=== PATIENT | male | born 1950 | race Caucasian/White ===

== ENCOUNTER 2018-09-27 17:05 | Observation (INO) | payer MEDICARE, SELFPAY ==
[2018-09-27] VITALS (7 sets, daily range): BP systolic 116–133; BP diastolic 43–88; PULSE 56–64; RESP 18–28; TEMP 36.1–36.7; O2SAT 95–97; BMI 49.4; BMI 48.6; BMI 48.7
--- NOTE | 2018-09-27 17:34 | EKG12_ITS ---
Test Reason : SOB Blood Pressure : / mmHG Vent. Rate : 061 BPM Atrial Rate : 061 BPM P-R Int : 138 ms QRS Dur : 086 ms QT Int : 416 ms P-R-T Axes : 043 027 028 degrees QTc Int : 418 ms Normal sinus rhythm Normal ECG Confirmed by DG LEWIS, SHERIF ([id number]), fan mail editor JOSE HURST ([id number]) on 09/30/2018 2:21:17 PM Referred By: GEORGETTE Confirmed By:SHERIF CONTE MD
--- NOTE | 2018-09-27 17:40 | RAD_ITS ---
STUDY: X-RAY CHEST REASON FOR EXAM: Male, 68 years old. Shortness of breath, chest pain. TECHNIQUE: Single AP portable upright view of the chest. COMPARISON: None. FINDINGS: The lungs are clear and expanded. There is no demonstrated pleural abnormality. Normal size heart. Normal mediastinum and yadira. Normal visualized pulmonary arteries. There is mild atherosclerotic calcification of the aortic arch. There are multilevel degenerative changes of the visualized thoracic spine. Normal visualized ribs, clavicles, and shoulders. There is no demonstrated abnormality of the visualized soft tissue structures of the upper abdomen. RAD/Chest 1 View (Portable) IMPRESSION: No acute cardiopulmonary disease. Electronically Signed: J Luis Bonilla MD at 18:05 EST , Service support ,
--- NOTE | 2018-09-27 17:46 | ED.DCSUM_ITS ---
- ER Visit Summary Date of Service: 09/27/18 Chief Complaint: Chest pain History of Present Illness: The patient is a 68 M no prior cardiac history. History of hypercoagulable state on anticoagulation. He has had prior DVT and prior PE. Also prior history of A. fib. Patient states the last 2 weeks he has had chest pain has been there more often than not. And associated exertional shortness of breath. He states he had a negative stress test about 4 years ago at the [facility]. He states exertion does not change his chest pain. He denies any hemoptysis. States he has chronic leg edema that is not changed. He denies any recent travel, surgery or immobilization. No recent hospitalization. He is currently having chest pain. Physical Examination: Older male no acute distress. Vital signs are stable. He is afebrile. His pulse ox is 95% on room air no hypoxia. HEENT exam un remarkable. Neck nontender. Lungs clear to auscultation bilaterally. Heart regular rhythm rate about 60 no murmur. Chest wall nontender. Abdomen obese but soft. Nontender normal bowel sounds no peritoneal signs. Patient is moving all 4 extremities. He has equal symmetrical pediatric cardiologist strength. Dorsi plantar flexion intact. He has chronic lower extremity edema bilaterally. Neurologically is awake and alert with no focal motor deficits. Test Results: EKG shows sinus rhythm rate of 61 with no acute abnormality. No ischemia. Chest x-ray shows normal cardiac silhouette mediastinum read both by myself and the radiologist. CBC shows a white count of 9. Hemoglobin of 14 is unremarkable. Chemistries are unremarkable with a normal gap. Troponin and d- dimer are both normal. Emergency Department Course and Treatment: She will undergo a cardiac workup. Repeat exam at 2100 patient is doing well. He is comfortable being admitted for further evaluation of his chest pain of uncertain etiology. Treatment Plan: I have spoken to the overnight hospitalist who will evaluate the patient for admission. Disposition: Admission Impression: Acute chest pain of uncertain etiology with exertional dyspnea History of hypercoagulable state on anticoagulation. History of oxw-gwatfdk-ujforjcge diabetes, prior PE and DVT This note was generated with [employer] dictation software. It may contain incorrect words, spelling, and punctuation that were not noted in review of the chart prior to signing ED Disposition - Plan for ED Patient: Chief Complaint: Shortness of Breath Referrals: Dereck Willsi MD [Primary Care Provider] -
[2018-09-27 18:01] LABS: Absolute Lymphocyte Count 2.99 X10^3/ul (0.83-4.51); Absolute Neutrophil Count 5.3 X10^3/uL (2.0-7.7); Basophil# 0.03 X10^3/uL; Basophil% 0.3 % (0-1); Eosinophil# 0.24 X10^3/uL; Eosinophils% 2.5 % (0-5); Hematocrit 44.2 % (40-54); Hemoglobin 14.7 g/dl (13.0-16.5); Lymphocyte # 2.99 X10^3/ul (4.0); Lymphocyte % 31.5 % (19-41); Mean Corp Hgb Conc 33.3 g/gl (32-36); Mean Corpuscular Volume 90.2 fL (80-94); Mean Platelet Vol. 8.7 fl (6.2-12.0); Monocyte# 0.98 X10^3/uL; Monocyte% 10.3 % (0-10); Neutrophil # 5.25 X10^3/uL (2.7-7.7); Neutrophil % 55.3 % (47-70); Platelet Count 210 K/mm3 (150-450); RBC Distribution Width CV 14.5 % (11.6-14.6); RBC Distribution Width SD 47.3 fl (35.1-43.9); White Blood Count 9.5 K/mm3 (4.4-11.0)
[2018-09-27 18:04] LABS: POSITIVE COUNT NO; POSITIVE DIFFERENTIAL NO; POSITIVE MORPHOLOGY NO
[2018-09-27 18:15] LABS: D-Dimer Quantitative (DVT/PE) 0.27 FEU/ug/m (0.27-0.49)
[2018-09-27 18:16] LABS: Anion Gap 6 (5-15); BUN 26 mg/dL (7-18); BUN/Creat Ratio 21.5 RATIO (10-20); Calcium,Total 8.1 mg/dL (8.5-10.1); Chloride 107 mmol/L (98-107); Creatinine, Serum 1.21 mg/dL (0.70-1.30); EST Glomerular Filtration Rate 63 mL/min (>60); Est Glom Filt Rate - Afr Amer 76 mL/min (>60); Estimated Creatinine Clearance 57.62 ml/min; Glucose 120 mg/dL (74-106); Potassium 4.1 mmol/L (3.5-5.1); Sodium Level 141 mmol/L (136-145)
--- NOTE | 2018-09-27 21:16 | ED.RN ---
THIS RN CALLED TO PT'S ROOM, FAMILY CONCERNED HE IS HAVING ANOTHER SEIZURE. PT OBSERVED WITH TWITCHING MOVEMENTS, IMMEDIATELY MAKES EYE CONTACT WITH RN, ANSWERS QUESTIONS APPROPRIATELY, MOVEMENT CEASES ALMOST IMMEDIATELY. VITAL SIGNS STABLE. MD AWARE.
--- NOTE | 2018-09-27 21:32 | HP.PCM_ITS ---
Problem List (1) Chest pain Status: Acute History of Present Illness Date of Admission: 09/27/18 Chief Complaint: chest pain The patient is a 68 year old M with a significant history of 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 fib; lower extremity lymphedema; type 2 diabetes mellitus; LEDA who presents with a two-week history of episodic nonradiating chest pain. His chest pain is located below her bilateral breast and at the sites of his bilateral breast. He describes chest pain as pressurized and burning. Two days he went to an Urgent Care at [facility] where he was found to be hypoxic and was instructed to come to the ED for further evaluation. Because of progressively worsening chest pain he presented to the emergency department for further evaluation. He denied any associated diaphoresis, nausea or vomiting. He had a negative chemical stress test about 4-5 years ago. Past Medical History Past Medical History (Chronic Problems): Chronic Problems Hyperthyroidism (Chronic) recently diagnosed Obesity (BMI 30-39.9) (Chronic) GERD (gastroesophageal reflux disease) (Chronic) History of Dotson's esophagus (Chronic) Atrial fibrillation (Chronic) Clotting disorder (Chronic) on Arixstra....had DVT while on Coumadin CRF (chronic renal failure) (Chronic) Venous hypertension of both lower extremities (Chronic) LEDA (obstructive sleep apnea) (Chronic) non-compliant with CPAP Allergies No Known Allergies Allergy (Verified 09/27/18 17:09) Home Medications: Ambulatory Orders Medication Instructions Recorded Fondaparinux Sodium [Arixtra] 10 mg SQ DAILY 12/21/14 Furosemide [Lasix] 40 mg PO DAILY 12/21/14 HydrOXYzine [Atarax] 50 mg PO QHS 12/21/14 Metoprolol Tartrate [Lopressor 50 mg PO BID 12/21/14 (beta enmanuel)] Pantoprazole Sodium [Protonix] 40 mg PO BID 12/21/14 Metformin HCl 500 mg PO DAILY 09/27/18 Nystatin 1 applic TP DAILY 09/27/18 Nystatin [Nystop] 1 applic TP DAILY 09/27/18 Ropinirole HCl [Requip] 9 mg PO DAILY 09/27/18 Surgical History: - - foot surgery, uvulectomy? for sleep apnea. Bilateral knee replacement. Psychiatric History: No pertinent psych hx Lives: Spouse/ Significant Other Smoking Status: Never smoker Alcohol: None - *Family History Maternal History Items: Diabetes, Heart Disease, - - mother at 69 with CHF and she had DM Paternal History Items: Heart Disease - dad at 81 with CHF, - Review of Systems Constitutional: Denies: Chills, Fever, Weight Change HEENT: Denies: Head Aches, Sinus Congestion, Sinus Drainage Cardiovascular: Reports: Chest Pain. Denies: Palpitations Respiratory: Reports: Shortness of Breath. Denies: Cough, Sputum production Gastrointestinal: Denies: Abdominal Pain, Nausea, Vomiting Genitourinary: Denies: Dysuria Musculoskeletal: Denies: Joint Pain, Joint Tenderness Skin: Denies: Rash, Wounds Neurological: Denies: Numbness, Tingling, Focal weakness Psychiatric: Denies: Anxiety, Depression, Homicidal Ideations, Suicidal Ideations Hematologic/ Lymphatic: Denies: Easy Bruising, Easy Bleeding VTE Information - Inpt Only VTE Present on Admission: No VTE Mechan Device Prophylaxis: None VTE Pharm Prophylaxis ordered?: No Reason prophylaxis not ordered:: Treatment Not Indicated - On fondaparinux for hypercoagulable disorder Patient Problems: Active and Suspected Problems Chest pain (Acute) - Physical Exam General: Alert, Oriented x3, Cooperative HEENT: Atraumatic, PERRLA, EOMI, Normocephalic Neck: Supple, No JVD, Negative Carotid Bruits Lungs: Clear to auscultation, Normal air movement Cardiovascular: Regular rate, No murmurs Abdomen: Bowel Sounds Present, Soft, Non Tender Extremities: Capillary Refill Less than 3 Seconds, Edema - Bilateral leg nonpitting edema Skin: No rashes, No breakdown Musculoskeletal: No Tenderness to Palpation of Joints or Extremities Neurological: Neuro grossly intact Psych/Mental Status: Normal Affect, Appropriate Vital Signs Temp Pulse Resp BP Pulse Ox 97.0 F L 57 L 24 H 133/88 H 95 09/27/18 17:06 09/27/18 20:54 09/27/18 20:54 09/27/18 20:54 09/27/18 20:54 Oxygen Flow Rate (L/min) 2 Oxygen Delivery Method Nasal Cannula Weight: 151.8 kg Body Mass Index (BMI) 49.4 Laboratory Tests Past 24 Hrs 09/27/18 09/27/18 09/27/18 17:44 17:44 17:44 WBC 9.5 RBC 4.90 Hgb 14.7 Hct 44.2 MCV 90.2 MCH 30.0 MCHC 33.3 RDW 14.5 RDW Differential 47.3 H Plt Count 210 MPV 8.7 Immature Gran % (Auto) 0.100 Neut % (Auto) 55.3 Lymph % (Auto) 31.5 [place] % (Auto) 10.3 H Eos % (Auto) 2.5 Baso % (Auto) 0.3 Absolute Neuts (auto) 5.3 Absolute Lymphs (auto) 2.99 Total Counted Not Reportable D-Dimer Quant (PE/DVT) 0.27 Sodium 141 Potassium 4.1 Chloride 107 Carbon Dioxide 28.0 Anion Gap 6 BUN 26 H Creatinine 1.21 Estim Creat Clear Calc 57.62 Est GFR (MDRD) Af Amer 76 Est GFR (MDRD) Non-Af 63 BUN/Creatinine Ratio 21.5 H Glucose 120 H Calcium 8.1 L Troponin I < 0.015 Assessment/Plan All Active Problems Chest pain (Acute) Contusion (Acute) Left leg swelling (Acute) Cellulitis (Acute) History of DVT (deep vein thrombosis) (Resolved) The patient is a 68 year old M with a significant history of hypercoagulable d isorder (low fibrinogen) with subsequent DVT and PE; paroxysmal A. fib; lower extremity lymphedema; type 2 diabetes mellitus who presents with a two-week history of episodic nonradiating chest pain. Chest pain CARMELA score is 0-1 Admit to a monitored bed on PCU EKG independently reviewed confirms sinus rhythm Aspirin 325 mg x1. ASA 81 mg p.o. daily. Starting on high intensity statin. SL NTG 0.4 mg prn as needed for chest pain Home metoprolol continued. Serial cardiac enzymes Lipid panel ordered. Stat EKG as needed for chest pain Chemical Stress test in the AM if the cardiac enzymes are negative. Unable to do treadmill stress test because of history of bilateral knee replacement. Hypercoagulable disorder with DVT and PE Patient reported that he treatment clot was on Coumadin. Home fondaparinux continued Type 2 diabetes On admission blood glucose was within goal. We will hold metformin for now Correction scale insulin ordered. Paroxysmal A. fib Patient in normal sinus rhythm at admission. Metoprolol continued Fondaparinux continued. Obstructive sleep apnea Patient describes uvuloplasty in the past and on CPAP at home. CPAP continued. DVT prophylaxis Not indicated in the setting of home fondaparinux that has been continued. Code Visit OBSV E&M: 62423 Initial observation care L3
--- NOTE | 2018-09-27 22:32 | EKG12_ITS ---
Test Reason : CP ADMIT Blood Pressure : / mmHG Vent. Rate : 058 BPM Atrial Rate : 058 BPM P-R Int : 144 ms QRS Dur : 092 ms QT Int : 430 ms P-R-T Axes : 046 022 024 degrees QTc Int : 422 ms Sinus bradycardia Otherwise normal ECG When compared with ECG of 27-SEP-2018 17:22, MANUAL COMPARISON REQUIRED, DATA IS UNCONFIRMED Confirmed by DG LEWIS, SHERIF ([id number]), senior technical editor JOSE HURST ([id number]) on 09/30/2018 2:04:31 PM Referred By: DR JEFFERS Confirmed By:SHERIF CONTE MD
[2018-09-27] MEDS: Atorvastatin Calcium 80 MG Tablet PO (23:35)
[2018-09-27] MEDS: Pramipexole Di-HCl 1 MG Tablet 4.5 MG PO (23:36)
[2018-09-27] MEDS: hydrOXYzine PAM 25 MG Capsule 50 MG PO (23:36)
[2018-09-27] MEDS: Insulin Lispro 100 UNIT/ML INSULN.PEN SQ (23:40)
[2018-09-27] MEDS: Aspirin 325 MG Tablet PO (23:45)
[2018-09-27 23:56] LABS: Bedside Glucose 158 mg/dL (70-110)
[2018-09-28] VITALS (8 sets, daily range): BP systolic 105–134; BP diastolic 57–77; PULSE 55–69; RESP 18; TEMP 36.4–36.6; O2SAT 92–947
[2018-09-28] MEDS: Aspirin E.C. 81 MG Tablet PO (05:26)
--- NOTE | 2018-09-28 05:55 | EKG12_ITS ---
Test Reason : AM EKG Blood Pressure : / mmHG Vent. Rate : 059 BPM Atrial Rate : 059 BPM P-R Int : 130 ms QRS Dur : 098 ms QT Int : 432 ms P-R-T Axes : 007 028 027 degrees QTc Int : 427 ms Sinus bradycardia Otherwise normal ECG Confirmed by DG LEWIS, SHERIF ([id number]), script editor JOSE HURST ([id number]) on 09/30/2018 2:00:52 PM Referred By: DR JEFFERS Confirmed By:SHERIF CONTE MD
[2018-09-28 06:08] LABS: International Normalized Ratio 1.4; Prothrombin Time (Protime)PT. 17.2 SECONDS (11.7-14.9)
[2018-09-28 06:09] LABS: Partial Thromboplast Time 37.1 Seconds (24.1-36.2)
[2018-09-28 06:11] LABS: Absolute Lymphocyte Count 3.13 X10^3/ul (0.83-4.51); Absolute Neutrophil Count 4.7 X10^3/uL (2.0-7.7); Basophil# 0.03 X10^3/uL; Basophil% 0.3 % (0-1); Eosinophil# 0.32 X10^3/uL; Eosinophils% 3.5 % (0-5); Hematocrit 43.7 % (40-54); Hemoglobin 14.2 g/dl (13.0-16.5); Lymphocyte # 3.13 X10^3/ul (4.0); Lymphocyte % 34.3 % (19-41); Mean Corp Hgb Conc 32.5 g/gl (32-36); Mean Corpuscular Hgb 29.6 pg (27.0-32.0); Mean Corpuscular Volume 91.2 fL (80-94); Monocyte# 0.96 X10^3/uL; Monocyte% 10.5 % (0-10); Neutrophil # 4.68 X10^3/uL (2.7-7.7); Neutrophil % 51.3 % (47-70); Platelet Count 205 K/mm3 (150-450); RBC Distribution Width CV 14.6 % (11.6-14.6); RBC Distribution Width SD 49.2 fl (35.1-43.9); Red Blood Count 4.79 M/mm3 (4.6-6.2); White Blood Count 9.1 K/mm3 (4.4-11.0)
[2018-09-28 06:24] LABS: POSITIVE COUNT NO; POSITIVE DIFFERENTIAL NO; POSITIVE MORPHOLOGY NO
[2018-09-28 06:31] LABS: BUN 24 mg/dL (7-18); Creatinine, Serum 1.14 mg/dL (0.70-1.30); Estimated Creatinine Clearance 61.16 ml/min; Glucose 134 mg/dL (74-106)
[2018-09-28 06:32] LABS: Anion Gap 4 (5-15); BUN/Creat Ratio 21.1 RATIO (10-20); Calcium,Total 8.2 mg/dL (8.5-10.1); Chloride 108 mmol/L (98-107); Cholesterol 113 mg/dL (200); EST Glomerular Filtration Rate 68 mL/min (>60); Est Glom Filt Rate - Afr Amer 82 mL/min (>60); High Density Lipoprotein 38 mg/dL; Potassium 4.1 mmol/L (3.5-5.1); Sodium Level 142 mmol/L (136-145); Triglycerides 155 mg/dL; Very Low Density Lipoprotein 31 mg/dL (5-40)
[2018-09-28 06:51] LABS: Bedside Glucose 163 mg/dL (70-110)
[2018-09-28] MEDS: Ondansetron 4 MG/2 ML Vial IV (09:14)
[2018-09-28 11:40] LABS: Bedside Glucose 138 mg/dL (70-110)
--- NOTE | 2018-09-28 12:47 | STRESSREP ---
Stress Test Report Pharmacologic myocardial perfusion stress test. Next 68-year-old man with a history of diabetes mellitus paroxysmal atrial fibrillation. Stress protocol: Resting EKG demonstrates normal sinus rhythm with a rate of 64 bpm normal intervals are noted resting blood pressure is 122/84 mmHg. 0.4 mg of regadenoson was infused per usual protocol followed by rapid intravenous saline flush injection continuous EKG monitoring was performed. The maximum heart rate attained was 78 bpm and sinus rhythm which was 51% of maximum predicted heart rate the maximum workload was 1 metabolic equivalent. At rest there were no ST or T wave changes noted suggest abnormal flow reserve at peak infusion no ST or T wave changes were noted suggest abnormal flow reserve. The resting blood pressure 122/84. Myocardial perfusion protocol. 15.0 mCi of technetium 99m sestamibi was injected at rest. 0.4 mg of regadenoson was infused per usual protocol peak infusion 44.7 mCi of technetium 99m sestamibi was injected stress images were obtained stress and rest images were reconstructed and compared in the short axis vertical and horizontal long axis. Gated images were also obtained proximal Perfusion SPECT analysis: Review of the stress images demonstrate normal uptake of tracer noted in all his myocardium except for small area of the apex with mild perfusion defect. This is present on the stress and rest images to a similar extent. No obvious reversibility is noted suggest ischemia. Gated SPECT analysis: The gated ejection fraction is 54% with no obvious wall motion abnormalities present. Conclusion: Normal pharmacologic myocardial perfusion stress test. Preserved ejection fraction.
--- NOTE | 2018-09-28 13:11 | DCINST_ITS ---
- Discharge Diagnoses Current Active Problems: Current Active and Chronic Problems Chest pain (Acute) You will use the following diet at home:: Calorie/Carbohydrate Controlled (specify 1200, 1400, etc) - 1800 yadira., Cardiac Your food should be the consistency of: Regular Discharge Activity: Return to Normal Activity Weight Bearing Status: Weight bearing as tolerated Call your doctor if you observe: Fever of 101 or Higher, Shortness of breath, Dizziness, Fainting spells, Chest pain, Increased palpitations (irregular heartbeat), Uncontrolled pain Allergies/Adverse Reactions: Allergies No Known Allergies Allergy (Verified 09/27/18 17:09) Medications to take at Discharge Fondaparinux Sodium [Arixtra] 10 mg SQ DAILY 12/21/14 Furosemide [Lasix] 40 mg PO DAILY 12/21/14 HydrOXYzine [Atarax] 50 mg PO QHS 12/21/14 Metoprolol Tartrate [Lopressor (beta enmanuel)] 50 mg PO BID 12/21/14 Pantoprazole Sodium [Protonix] 40 mg PO BID 12/21/14 Metformin HCl 500 mg PO DAILY 09/27/18 Nystatin 1 applic TP DAILY 09/27/18 Nystatin [Nystop] 1 applic TP DAILY 09/27/18 Ropinirole HCl [Requip] 9 mg PO DAILY 09/27/18 Primary Care Physician: Dereck Willis MD [Primary Care Provider] - Please follow up with your Primary Care Physician in: 1 week. Test Results: Test results from this visit will be discussed in further detail at your follow- up appointment, if applicable.
[2018-09-28] MEDS: Metoprolol Tartrate 50 MG Tablet PO (13:36)
[2018-09-28] MEDS: Pantoprazole Sodium 40 MG Tablet PO (13:36)
--- NOTE | 2018-09-28 15:01 | DS.PCM_ITS ---
Discharge Date and Diagnosis - Problem List Patient Problems: Active and Suspected Problems Chest pain (Acute) Date of Admission: 09/27/18 Date of Discharge: 09/28/18 - Primary Discharge Diagnosis Active and Suspected Problems Chest pain, ACS ruled out (Acute) - Secondary Discharge Diagnosis Chronic Problems Hyperthyroidism (Chronic) recently diagnosed Obesity (BMI 30-39.9) (Chronic) GERD (gastroesophageal reflux disease) (Chronic) History of Dotson's esophagus (Chronic) Atrial fibrillation (Chronic) Clotting disorder (Chronic) on Arixstra....had DVT while on Coumadin CRF (chronic renal failure) (Chronic) Venous hypertension of both lower extremities (Chronic) LEDA (obstructive sleep apnea) (Chronic) non-compliant with CPAP Hospital Course and Treatment Imaging Results: Clinical Impression(s) from Imaging Studies Chest X-Ray 09/27/18 17:40 IMPRESSION: No acute cardiopulmonary disease. Electronically Signed: J Luis Bonilla MD at 18:05 EST , Service support , Operations: None Procedures: EKG, Stress test Summary of Care Provided: Patient seen and examined on the day of discharge and appeared to be stable to be discharged home. He complains of chest pressure both improved. He denied associated symptoms such as shortness of breath, palpitation, dizziness, lightheadedness, nausea, vomiting, syncope or presyncope. He did have a history of GERD and he has been on Protonix. The patient is a 68 year old M admitted because of chest pain for evaluation. His risk factors including age, type 2 diabetes mellitus and hypertension as well as history of hypercoagulable state has been on Lovenox for life. His EKG revealed no acute ischemic changes. His troponin was negative x3. His chest x- ray showed no acute findings. He underwent nuclear stress test that reported as negative without evidence of stress-induced myocardial ischemia and with preserved ejection fraction. Acute coronary syndrome without. His vital signs were stable. His symptoms probably due to GERD. Patient discharged home in a stable medical condition, discharged on his same home medications without any changes in breathing Protonix, recommended follow-up with PCP in 1 week. Patient Problems: Active and Suspected Problems Chest pain (Acute) - Physical Exam General: Alert, Oriented x3, Cooperative, No apparent distress HEENT: Atraumatic, PERRLA, EOMI, Normocephalic Oral: Moist Mucosa, No Gingival or Mucosal Lesions/ Ulcerations Neck: Supple, No JVD, Negative Carotid Bruits, Trachea Midline, Thyroid Normal Size and Texture Lungs: Clear to auscultation, No rhonchi, No wheeze, No rales, Diminished Cardiovascular: Regular rate, Regular Rhythm, Normal S1, Normal S2, PMI Normal Abdomen: Bowel Sounds Present, Soft, Non Tender, Non-Distended, No Hepato- splenomegaly, Obese Extremities: No clubbing, No cyanosis, No edema Skin: No rashes, No breakdown Lymphatic: No Cervical, Supraclavicular, or Inguinal Adenopathy Neurological: Cranial nerves II-XII grossly intact, Neuro grossly intact Psych/Mental Status: Normal Affect, Appropriate Vital Signs Temp Pulse Resp BP Pulse Ox 97.7 F L 69 18 106/57 L 94 09/28/18 08:58 09/28/18 13:36 09/28/18 08:58 09/28/18 13:36 09/28/18 08:58 Oxygen Flow Rate (L/min) 2 Oxygen Delivery Method Room Air Weight: 329 lb 12.984 oz Body Mass Index (BMI) 48.6 Intake and Output for Last 24 Hours 09/26/18 09/27/18 09/28/18 23:59 23:59 23:59 Output Total 125 / 125 Balance -125 / -125 Laboratory Tests Past 24 Hrs 09/27/18 09/27/18 09/27/18 17:44 17:44 17:44 WBC 9.5 RBC 4.90 Hgb 14.7 Hct 44.2 MCV 90.2 MCH 30.0 MCHC 33.3 RDW 14.5 RDW Differential 47.3 H Plt Count 210 MPV 8.7 Immature Gran % (Auto) 0.100 Neut % (Auto) 55.3 Lymph % (Auto) 31.5 Sunflower % (Auto) 10.3 H Eos % (Auto) 2.5 Baso % (Auto) 0.3 Absolute Neuts (auto) 5.3 Absolute Lymphs (auto) 2.99 Total Counted Not Reportable PT INR APTT D-Dimer Quant (PE/DVT) 0.27 Sodium 141 Potassium 4.1 Chloride 107 Carbon Dioxide 28.0 Anion Gap 6 BUN 26 H Creatinine 1.21 Estim Creat Clear Calc 57.62 Est GFR (MDRD) Af Amer 76 Est GFR (MDRD) Non-Af 63 BUN/Creatinine Ratio 21.5 H Glucose 120 H Calcium 8.1 L Troponin I < 0.015 Triglycerides Cholesterol LDL Cholesterol VLDL Cholesterol HDL Cholesterol 09/27/18 09/28/18 09/28/18 23:06 02:52 05:00 WBC RBC Hgb Hct MCV MCH MCHC RDW RDW Differential Plt Count MPV Immature Gran % (Auto) Neut % (Auto) Lymph % (Auto) Sunflower % (Auto) Eos % (Auto) Baso % (Auto) Absolute Neuts (auto) Absolute Lymphs (auto) Total Counted PT INR APTT D-Dimer Quant (PE/DVT) Sodium 142 Potassium 4.1 Chloride 108 H Carbon Dioxide 30.0 Anion Gap 4 L BUN 24 H Creatinine 1.14 Estim Creat Clear Calc 61.16 Est GFR (MDRD) Af Amer 82 Est GFR (MDRD) Non-Af 68 BUN/Creatinine Ratio 21.1 H Glucose 134 H Calcium 8.2 L Troponin I < 0.015 < 0.015 < 0.015 Triglycerides 155 Cholesterol 113 LDL Cholesterol 44 VLDL Cholesterol 31 HDL Cholesterol 38 L 09/28/18 09/28/18 05:00 05:00 WBC 9.1 RBC 4.79 Hgb 14.2 Hct 43.7 MCV 91.2 MCH 29.6 MCHC 32.5 RDW 14.6 RDW Differential 49.2 H Plt Count 205 MPV 9.0 Immature Gran % (Auto) 0.100 Neut % (Auto) 51.3 Lymph % (Auto) 34.3 Sunflower % (Auto) 10.5 H Eos % (Auto) 3.5 Baso % (Auto) 0.3 Absolute Neuts (auto) 4.7 Absolute Lymphs (auto) 3.13 Total Counted Not Reportable PT 17.2 H INR 1.4 APTT 37.1 H D-Dimer Quant (PE/DVT) Sodium Potassium Chloride Carbon Dioxide Anion Gap BUN Creatinine Estim Creat Clear Calc Est GFR (MDRD) Af Amer Est GFR (MDRD) Non-Af BUN/Creatinine Ratio Glucose Calcium Troponin I Triglycerides Cholesterol LDL Cholesterol VLDL Cholesterol HDL Cholesterol POC Glucose 09/28/18 09/28/18 09/27/18 11:34 06:47 23:34 POC Glucose 138 H 163 H 158 H Discharge Activity: Return to Normal Activity Weight Bearing Status: Weight bearing as tolerated Call your doctor if you observe: Fever of 101 or Higher, Shortness of breath, Dizziness, Fainting spells, Chest pain, Increased palpitations (irregular heartbeat), Uncontrolled pain Home Medications: Medications to take at Discharge Fondaparinux Sodium [Arixtra] 10 mg SQ DAILY 12/21/14 Furosemide [Lasix] 40 mg PO DAILY 12/21/14 HydrOXYzine [Atarax] 50 mg PO QHS 12/21/14 Metoprolol Tartrate [Lopressor (beta enmanuel)] 50 mg PO BID 12/21/14 Pantoprazole Sodium [Protonix] 40 mg PO BID 12/21/14 Metformin HCl 500 mg PO DAILY 09/27/18 Nystatin 1 applic TP DAILY 09/27/18 Nystatin [Nystop] 1 applic TP DAILY 09/27/18 Ropinirole HCl [Requip] 9 mg PO DAILY 09/27/18 Primary Care Physician: Dereck Willis MD [Primary Care Provider] - Please follow up with your Primary Care Physician in: 1 week. Disposition: Home Minutes spent on discharge:: 24 Patient Condition:: Stable Medical Necessity - Tobacco Use Smoking Status: Never smoker Meaningful Use Info Meaningful Use Diagnoses (Choose all that apply): None applicable Code Visit OBSV E&M: 39303 Observation care discharge
--- OUTSIDE RECORDS SUMMARY | 2018-11-23 09:44 | XMS RPT_ITS ---
:1950 Author Organization OHIP Care Team Providers Name Role Phone AVINASH WILLIS Attending Unavailable Nishi BRICE (PA-C) Attending Unavailable KHADRA MUNIZ (WELDER OXYHYDROGEN) Referring Unavailable Corona Sloan Attending Unavailable Jacob Quan Referring Unavailable Corona Sloan Attending Unavailable Jacob Murillo Referring Unavailable Avinash Willis Primary Care Unavailable Jacob Murillo Admitting Unavailable Casper Dick Attending Unavailable Jacob Murillo Admitting Unavailable Jacob Murillo Attending Unavailable Avinash Willis Primary Care Unavailable Jacob Murillo Consulting Unavailable Jacob Murillo Admitting Unavailable Casper Dick Attending Unavailable Avinash Willis Primary Care Unavailable Casper Dick Consulting Unavailable PROBLEMS PROBLEMS DATE TYPE CONDITION / CODE ATTENDING STATUS SOURCE 10/18/2018 Unknown R07.9 - Chest pain, Corona Sloan Active [facility] unspecified / Community R07.9(ICD-10) Hospital Repository 10/17/2018 Unknown R00.1 - Nathalia, Corona Active [facility] Bradycardia, Community unspecified / Hospital R00.1(ICD-10) Repository 05/20/2017 Active Type 2 diabetes NA Active [facility] mellitus without [place] complications / Repository E11.9(ICD-10) 05/12/2018 Active Encounter for NA Active [facility] screening for [place] lipoid disorders / Repository Z13.220(ICD-10) PROCEDURES PROCEDURES No Procedure Records FoundRESULTS RESULTS 12 LEAD ELECTROCARDIOGRAM Observed: 09/30/2018 Status: F Source: [place] 2:21 PM [facility] HOSPITAL REPOSITORY [facility] Cardiovascular Services [address] [place] [address] 12 Lead EKG 09/27/18 1722 MR#: [id number] Acct: [id number] Name: IVELISSE CAPONE Rep #: [id number] : 1950 68 From: Corona Sloan MD Attending Dr: Casper Dick Status: DIS SHANTA Ordering Dr: Tdod Knowles MD Date: 09/27/18 Location: [facility] Sex: M C Admitted: 09/27/18 Test Reason : SOB Blood Pressure : / mmHG Vent. Rate : 061 BPM Atrial Rate : 061 BPM P-R Int : 138 ms QRS Dur : 086 ms QT Int : 416 ms P-R-T Axes : 043 027 028 degrees QTc Int : 418 ms Normal sinus rhythm Normal ECG Confirmed by CORONA SLOAN MD ([id number]), brands editor JOSE HURST ([id number]) on 09/30/2018 2:21:17 PM Referred By: GEORGETTE Confirmed By:CORONA SLOAN MD 09/30/18 1421 Date Corona Sloan MD CC: Casper Dick; Todd Knowles MD; Avinash Willis MD Signed 12 LEAD ELECTROCARDIOGRAM Observed: 09/30/2018 Status: F Source: [place] 2:04 PM [facility] REPOSITORY [facility] Cardiovascular Services [address] [place] [address] 12 Lead EKG 09/27/18 2332 MR#: [id number] Acct: [id number] Name: IVELISSE CAPONE Rep #: [id number] : 1950 68 From: Corona Sloan MD Attending Dr: Casper Dick Status: DIS SHANTA Ordering Dr: Jacob Murillo MD Date: 09/27/18 Location: [facility] Sex: M C Admitted: 09/27/18 Test Reason : CP ADMIT Blood Pressure : / mmHG Vent. Rate : 058 BPM Atrial Rate : 058 BPM P-R Int : 144 ms QRS Dur : 092 ms QT Int : 430 ms P-R-T Axes : 046 022 024 degrees QTc Int : 422 ms Sinus bradycardia Otherwise normal ECG When compared with ECG of 27-SEP-2018 17:22, MANUAL COMPARISON REQUIRED, DATA IS UNCONFIRMED Confirmed by NATHALIA LEWIS, CORONA ([id number]), brands editor JOSE HURST ([id number]) on 09/30/2018 2:04:31 PM Referred By: DR JAMES Confirmed By:CORONA SLOAN MD 09/30/18 1404 Date Corona Sloan MD CC: Casper Dick; Jacob Murillo MD; Avinash Willis MD Signed 12 LEAD ELECTROCARDIOGRAM Observed: 09/30/2018 Status: F Source: [place] 2:01 PM [facility] HOSPITAL REPOSITORY [facility] Cardiovascular Services [address] [place] [address] 12 Lead EKG 09/28/18 0553 MR#: [id number] Acct: [id number] Name: IVELISSE CAPONE Rep #: [id number] : 1950 68 From: Corona Sloan MD Attending Dr: Casper Dick Status: DIS SHANTA Ordering Dr: Jacob Murillo MD Date: 09/28/18 Location: [facility] Sex: M C Admitted: 09/27/18 Test Reason : AM EKG Blood Pressure : / mmHG Vent. Rate : 059 BPM Atrial Rate : 059 BPM P-R Int : 130 ms QRS Dur : 098 ms QT Int : 432 ms P-R-T Axes : 007 028 027 degrees QTc Int : 427 ms Sinus bradycardia Otherwise normal ECG Confirmed by CORONA SLOAN MD ([id number]), brands editor JOSE HURST ([id number]) on 09/30/2018 2:00:52 PM Referred By: DR JAMES Confirmed By:CORONA SLOAN MD 09/30/18 1400 Date Corona Sloan MD CC: Casper Dick; Jacob Murillo MD; Avinash Willis MD Signed DISCHARGE SUMMARY Observed: 09/28/2018 Status: F Source: [place] 3:17 PM [facility] REPOSITORY [facility] Medical Records Department [address] [place] [address] Discharge Summary 09/28/18 1501 MR#: [id number] Acct: [id number] Name: IVELISSE CAPONE Rep #: [id number] : 1950 68 From: Casper Dick MD PCP: Avinash Willis MD Status: DIS SHANTA Y Location: [place] [id number] Discharge Date and Diagnosis - Problem List Patient Problems: Active and Suspected Problems Chest pain (Acute) Date of Admission: 09/27/18 Date of Discharge: 09/28/18 - Primary Discharge Diagnosis Active and Suspected Problems Chest pain, ACS ruled out (Acute) - Secondary Discharge Diagnosis Chronic Problems Hyperthyroidism (Chronic) recently diagnosed Obesity (BMI 30-39.9) (Chronic) GERD (gastroesophageal reflux disease) (Chronic) History of Dotson's esophagus (Chronic) Atrial fibrillation (Chronic) Clotting disorder (Chronic) on Arixstra....had DVT while on Coumadin CRF (chronic renal failure) (Chronic) Venous hypertension of both lower extremities (Chronic) LEDA (obstructive sleep apnea) (Chronic) non-compliant with CPAP Hospital Course and Treatment Imaging Results: Clinical Impression(s) from Imaging Studies Chest X-Ray 09/27/18 17:40 IMPRESSION: No acute cardiopulmonary disease. Electronically Signed: J Luis Bonilla MD at 18:05 EST , Service support , Operations: None Procedures: EKG, Stress test Summary of Care Provided: Patient seen and examined on the day of discharge and appeared to be stable to be discharged home. He complains of chest pressure both improved. He denied associated symptoms such as shortness of breath, palpitation, dizziness, lightheadedness, nausea, vomiting, syncope or presyncope. He did have a history of GERD and he has been on Protonix. The patient is a 68 year old M admitted because of chest pain for evaluation. His risk factors including age, type 2 diabetes mellitus and hypertension as well as history of hypercoagulable state has been on Lovenox for life. His EKG revealed no acute ischemic changes. His troponin was negative x3. His chest x-ray showed no acute findings. He underwent nuclear stress test that reported as negative without evidence of stress-induced myocardial ischemia and with preserved ejection fraction. Acute coronary syndrome without. His vital signs were stable. His symptoms probably due to GERD. Patient discharged home in a stable medical condition, discharged on his same home medications without any changes in breathing Protonix, recommended follow-up with PCP in 1 week. Patient Problems: Active and Suspected Problems Chest pain (Acute) - Physical Exam General: Alert, Oriented x3, Cooperative, No apparent distress HEENT: Atraumatic, PERRLA, EOMI, Normocephalic Oral: Moist Mucosa, No Gingival or Mucosal Lesions/ Ulcerations Neck: Supple, No JVD, Negative Carotid Bruits, Trachea Midline, Thyroid Normal Size and Texture Lungs: Clear to auscultation, No rhonchi, No wheeze, No rales, Diminished Cardiovascular: Regular rate, Regular Rhythm, Normal S1, Normal S2, PMI Normal Abdomen: Bowel Sounds Present, Soft, Non Tender, Non-Distended, No Hepato-splenomegaly, Obese Extremities: No clubbing, No cyanosis, No edema Skin: No rashes, No breakdown Lymphatic: No Cervical, Supraclavicular, or Inguinal Adenopathy Neurological: Cranial nerves II-XII grossly intact, Neuro grossly intact Psych/Mental Status: Normal Affect, Appropriate Vital Signs Temp Pulse Resp BP Pulse Ox 97.7 F L 69 18 106/57 L 94 09/28/18 08:58 09/28/18 13:36 09/28/18 08:58 09/28/18 13:36 09/28/18 08:58 Oxygen Flow Rate (L/min) 2 Oxygen Delivery Method Room Air Weight: 329 lb 12.984 oz Body Mass Index (BMI) 48.6 Intake and Output for Last 24 Hours Output Total 125 / 125 Balance -125 / -125 Laboratory Tests Past 24 Hrs WBC 9.5 RBC 4.90 Hgb 14.7 Hct 44.2 MCV 90.2 MCH 30.0 MCHC 33.3 RDW 14.5 WBC RBC Hgb Hct WBC 9.1 POC Glucose POC Glucose 138 H 163 H 158 H Discharge Activity: Return to Normal Activity Weight Bearing Status: Weight bearing as tolerated Call your doctor if you observe: Fever of 101 or Higher, Shortness of breath, Dizziness, Fainting spells, Chest pain, Increased palpitations (irregular heartbeat), Uncontrolled pain Home Medications: Medications to take at Discharge Fondaparinux Sodium [Arixtra] 10 mg SQ DAILY 12/21/14 Furosemide [Lasix] 40 mg PO DAILY 12/21/14 HydrOXYzine [Atarax] 50 mg PO QHS 12/21/14 Metoprolol Tartrate [Lopressor (beta enmanuel)] 50 mg PO BID 12/21/14 Pantoprazole Sodium [Protonix] 40 mg PO BID 12/21/14 Metformin HCl 500 mg PO DAILY 09/27/18 Nystatin 1 applic TP DAILY 09/27/18 Nystatin [Nystop] 1 applic TP DAILY 09/27/18 Ropinirole HCl [Requip] 9 mg PO DAILY 09/27/18 Primary Care Physician: Avinash Willis MD [Primary Care Provider] - Please follow up with your Primary Care Physician in: 1 week. Disposition: Home Minutes spent on discharge:: 24 Patient Condition:: Stable Medical Necessity - Tobacco Use Smoking Status: Never smoker Meaningful Use Info Meaningful Use Diagnoses (Choose all that apply): None applicable Code Visit OBSV E AND M: 24535 Observation care discharge 09/28/18 1517 <Electronically signed by Casper Dick MD> Date Casper Dick MD Cosigner Signature (if applicable): Date CC: Casper Dick; Avinash Willis MD Signed DISCHARGE INSTRUCTION Observed: 09/28/2018 Status: F Source: [place] 1:11 PM [facility] REPOSITORY [facility] Medical Records Department [address] [place] [address] [place] [address] Instructions for Home/Discharge Instructions 09/28/18 1310 MR#: [id number] Acct: [id number] Name: IVELISSE CAPONE Davy Rep #: [id number] : 1950 68 From: Casper Dick MD PCP: Avinash Willis MD Status: ADM SHANTA - Discharge Diagnoses Current Active Problems: Current Active and Chronic Problems Chest pain (Acute) You will use the following diet at home:: Calorie/Carbohydrate Controlled (specify 1200, 1400, etc) - 1800 yadira., Cardiac Your food should be the consistency of: Regular Discharge Activity: Return to Normal Activity Weight Bearing Status: Weight bearing as tolerated Call your doctor if you observe: Fever of 101 or Higher, Shortness of breath, Dizziness, Fainting spells, Chest pain, Increased palpitations (irregular heartbeat), Uncontrolled pain Allergies/Adverse Reactions: Allergies No Known Allergies Allergy (Verified 09/27/18 17:09) Medications to take at Discharge Fondaparinux Sodium [Arixtra] 10 mg SQ DAILY 12/21/14 Furosemide [Lasix] 40 mg PO DAILY 12/21/14 HydrOXYzine [Atarax] 50 mg PO QHS 12/21/14 Metoprolol Tartrate [Lopressor (beta enmanuel)] 50 mg PO BID 12/21/14 Pantoprazole Sodium [Protonix] 40 mg PO BID 12/21/14 Metformin HCl 500 mg PO DAILY 09/27/18 Nystatin 1 applic TP DAILY 09/27/18 Nystatin [Nystop] 1 applic TP DAILY 09/27/18 Ropinirole HCl [Requip] 9 mg PO DAILY 09/27/18 Primary Care Physician: Avinash Willis MD [Primary Care Provider] - Please follow up with your Primary Care Physician in: 1 week. Test Results: Test results from this visit will be discussed in further detail at your follow-up appointment, if applicable. 09/28/18 1311 <Electronically signed by Casper Dick MD> Date Casper Dick MD CC: Avinash Willis MD STRESS REPORT Observed: 09/28/2018 Status: F Source: [place] 12:50 PM [facility] REPOSITORY [facility] Cardiovascular Services [address] [place] [address] MR#: [id number] Acct: [id number] Name: IVELISSE CAPONE Rep #: [id number] : 1950 68 From: Corona Sloan MD Primary Care: Avinash Willis MD Status: ADM SHANTA Ordering Dr: Conor Mckenzie Stress Test Report Pharmacologic myocardial perfusion stress test. Next 68-year-old man with a history of diabetes mellitus paroxysmal atrial fibrillation. Stress protocol: Resting EKG demonstrates normal sinus rhythm with a rate of 64 bpm normal intervals are noted resting blood pressure is 122/84 mmHg. 0.4 mg of regadenoson was infused per usual protocol followed by rapid intravenous saline flush injection continuous EKG monitoring was performed. The maximum heart rate attained was 78 bpm and sinus rhythm which was 51% of maximum predicted heart rate the maximum workload was 1 metabolic equivalent. At rest there were no ST or T wave changes noted suggest abnormal flow reserve at peak infusion no ST or T wave changes were noted suggest abnormal flow reserve. The resting blood pressure 122/84. Myocardial perfusion protocol. 15.0 mCi of technetium 99m sestamibi was injected at rest. 0.4 mg of regadenoson was infused per usual protocol peak infusion 44.7 mCi of technetium 99m sestamibi was injected stress images were obtained stress and rest images were reconstructed and compared in the short axis vertical and horizontal long axis. Gated images were also obtained proximal Perfusion SPECT analysis: Review of the stress images demonstrate normal uptake of tracer noted in all his myocardium except for small area of the apex with mild perfusion defect. This is present on the stress and rest images to a similar extent. No obvious reversibility is noted suggest ischemia. Gated SPECT analysis: The gated ejection fraction is 54% with no obvious wall motion abnormalities present. Conclusion: Normal pharmacologic myocardial perfusion stress test. Preserved ejection fraction. 09/28/18 1250 <Electronically signed by Corona Sloan MD> Date Corona Sloan MD CC: Casper Dick; Avinash Willis MD Date Dictated: 09/28/18 1247 Date Transcribed: 09/28/181246 Composition Floor Setter: CO Signed BEDSIDE GLUCOSE Collected: 09/28/2018 Status: F Source: [place] 11:34 AM [facility] REPOSITORY TYPE CODE TESTS RESULT OUT OF REFERENCE UNITS RANGE LAB L501.080 70-110 mg/dL High BEDSIDE GLU 138 Result Comment: MANAGEMENT OF PATIENT CARE PER NURSING PROTOCOL Performed By: #### L501.080 #### [facility] Point of Care [address] [place], [place] [address] BEDSIDE GLUCOSE Collected: 09/28/2018 Status: F Source: [place] 6:47 AM [facility] REPOSITORY TYPE CODE TESTS RESULT OUT OF REFERENCE UNITS RANGE LAB L501.080 70-110 mg/dL High BEDSIDE GLU 163 Result Comment: MANAGEMENT OF PATIENT CARE PER NURSING PROTOCOL Performed By: #### L501.080 #### [facility] Point of Care [address] [place] [address] PROTHROMBIN TIME W/INR Collected: 09/28/2018 Status: F Source: [place] 5:00 AM [facility] REPOSITORY TYPE CODE TESTS RESULT OUT OF RANGE REFERENCE UNITS LAB L300.4150 11.7-14.9 SECONDS High PROTIME 17.2 LAB L300.4200 Normal INR 1.4 Performed By: #### L300.3900, L300.4310 #### [facility] [address] [place], [address] PARTIAL THROMBOPLAST Collected: 09/28/2018 Status: F Source: [place] TIME 5:00 AM [facility] REPOSITORY TYPE CODE TESTS RESULT OUT OF REFERENCE UNITS RANGE LAB L300.4310 24.1-36.2 Seconds High PTT 37.1 Performed By: #### L300.3900, L300.4310 #### [facility] [address] [place], [address] CBC W/DIFF, AUTOMATED Collected: 09/28/2018 Status: F Source: [place] 5:00 AM [facility] REPOSITORY TYPE CODE TESTS RESULT OUT OF RANGE REFERENCE UNITS LAB L100.1000 4.4-11.0 K/mm3 Normal WBC 9.1 LAB L100.1200 4.6-6.2 M/mm3 Normal RBC 4.79 LAB L100.1300 13.0-16.5 g/dl Normal HGB 14.2 LAB L100.1400 40-54 % Normal HCT 43.7 LAB L100.1500 80-94 fL Normal MCV 91.2 LAB L100.1600 27.0-32.0 pg Normal MCH 29.6 LAB L100.1700 32-36 g/gl Normal MCHC 32.5 LAB L100.1810 11.6-14.6 % Normal RDW CV 14.6 LAB L100.1820 35.1-43.9 fl High RDW SD 49.2 LAB L100.1900 150-450 K/mm3 Normal PLT 205 LAB L100.2000 6.2-12.0 fl Normal MPV 9.0 LAB L100.2100 47-70 % Normal NEUT% 51.3 LAB L100.2200 19-41 % Normal LY% 34.3 LAB L100.2300 0-10 % High MONO% 10.5 LAB L100.2400 0-5 % Normal EO% 3.5 LAB L100.2500 0-1 % Normal BASO% 0.3 LAB L100.2550 0.0-0.9 % Normal IM GRAN % 0.100 Result Comment: IG% - Immature Granulocytes (promyelocytes, myelocytes and metamyelocytes) > 1% indicates that a LEFT SHIFT is Present. LAB L100.2620 2.0-7.7 X10 3/uL Normal Absolute Neut 4.7 LAB L100.2720 0.83-4.51 X10 3/ul Normal Absolute Lymph 3.13 Performed By: #### L100.0100 #### [facility] [place], [address] BASIC METABOLIC Collected: 09/28/2018 Status: F Source: [place] PROFILE (BMP) 5:00 AM [facility] REPOSITORY Order Comment: 'TROP' Serial specimen #1, #2 or #3: 3 'TROP' Serial specimen #1, #2, #3, or #4: 3 TYPE CODE TESTS RESULT OUT OF RANGE REFERENCE UNITS LAB L501.0100 74-106 mg/dL High GLU 134 Result Comment: Fasting Glucose result greater than or equal to 126 mg/dL suggests DIABETES MELLITUS per A.D.A. criteria. Please note revised GLUCOSE reference range effective 2017. LAB L501.1000 7-18 mg/dL High BUN 24 LAB L501.1100 0.70-1.30 mg/dL Normal CREAT,SERUM 1.14 Result Comment: The validity of the calculated GFR AND GFRAA in patients over 70 years has not been determined. Clinical correlation is essential. LAB L501.1110 >60 mL/min Normal EST GFR 68 Result Comment: Non- GFR Calc LAB L501.1115 >60 mL/min Normal EST GFR - AA 82 Result Comment: GFR Calc LAB L501.1255 ml/min Normal Estimated CRCL 61.16 LAB L501.1300 10-20 RATIO High BUN/CRE 21.1 LAB L501.2200 8.5-10 mg/dL Low .1 CA 8.2 LAB L501.5300 136-14 mmol/L Normal 5 NA 142 LAB L501.5600 3.5-5. mmol/L Normal 1 K 4.1 LAB L501.5900 98-107 mmol/L High CL 108 LAB L501.6100 21.0-3 mmol/L Normal 2.0 CO2 30.0 LAB L501.6200 5-15 Low GAP 4 Performed By: #### L500.2500, L500.4100, L501.4010 #### [facility] [address] [place], [address] LIPID PROFILE Collected: 09/28/2018 Status: F Source: [place] 5:00 AM [facility] REPOSITORY Order Comment: 'TROP' Serial specimen #1, #2 or #3: 3 'TROP' Serial specimen #1, #2, #3, or #4: 3 TYPE CODE TESTS RESULT OUT OF RANGE REFERENCE UNITS LAB L501.4900 200 mg/dL Normal CHOL 113 Result Comment: <200 mg/dL Desirable 200-240 mg/dL Borderline >240 mg/dL High Risk LAB L501.5000 mg/dL Normal TRIG 155 Result Comment: The drugs N-Acetylcysteine and Metamizole may falsely depress this assay. Serum Triglycerides Reference Interval Normal <150 mg/dL Borderline high 150 - 199 mg/dL High 200 - 499 mg/dL Very High > or = 500 mg/dL LAB L501.6400 mg/dL Low HDL 38 Result Comment: The drugs N-Acetylcysteine and Metamizole may falsely depress this assay. Reference Range HDL <40 mg/dL Low HDL Cholesterol HDL >or= 60 mg/dL High HDL Cholesterol LAB L501.6500 0-130 mg/dL Normal LDL 44 LAB L501.6600 5-40 mg/dL Normal VLDL 31 Performed By: #### L500.2500, L500.4100, L501.4010 #### [facility] [address] [place], [address] TROPONIN-I Collected: 09/28/2018 Status: F Source: [place] 5:00 AM [facility] REPOSITORY Order Comment: 'TROP' Serial specimen #1, #2 or #3: 3 'TROP' Serial specimen #1, #2, #3, or #4: 3 TYPE CODE TESTS RESULT OUT OF RANGE REFERENCE UNITS LAB L501.4010 <0.045 ng/mL Normal < 0.015 TROPONIN-I Result Comment: TROPONIN-I EXPECTED VALUES <0.045 Negative 0.045 - 0.590 Consistent with Cardiac Damage > OR = 0.600 Critical Value Not every elevated troponin is indicative of NC. These values should be used with clinical judgement in examining the patient's clinical picture for diagnosis. To establish a diagnosis of NC versus myocardial injury, there must be a demonstrated rise and/or fall in the troponin values, in addition to ischemic symptoms, EKG changes, new regional wall motion abnormality, and/or angiographical evidence. PLEASE NOTE: REFERENCE RANGES EDITED 18 Performed By: #### L500.2500, L500.4100, L501.4010 #### [facility] [address] [facility] [place], [address] TROPONIN-I Collected: 09/28/2018 Status: F Source: [place] 2:52 AM [facility] REPOSITORY Order Comment: 'TROP' Serial specimen #1, #2 or #3: 2 TYPE CODE TESTS RESULT OUT OF RANGE REFERENCE UNITS LAB L501.4010 <0.045 ng/mL Normal < 0.015 TROPONIN-I Result Comment: TROPONIN-I EXPECTED VALUES <0.045 Negative 0.045 - 0.590 Consistent with Cardiac Damage > OR = 0.600 Critical Value Not every elevated troponin is indicative of NC. These values should be used with clinical judgement in examining the patient's clinical picture for diagnosis. To establish a diagnosis of NC versus myocardial injury, there must be a demonstrated rise and/or fall in the troponin values, in addition to ischemic symptoms, EKG changes, new regional wall motion abnormality, and/or angiographical evidence. PLEASE NOTE: REFERENCE RANGES EDITED 18 Performed By: #### L501.4010 #### [facility] [address] [facility] [place], [address] HISTORY AND PHYSICAL Observed: 09/27/2018 Status: F Source: [place] EXAM 11:49 PM [facility] REPOSITORY [facility] Medical Records Department [address] [place] [address] History and Physical 09/27/18 2132 MR#: [id number] Acct: [id number] Name: IVELISSE CAPONE Rep #: [id number] : 1950 68 From: Jacob Murillo MD PCP: Avinash Willis MD Status: ADM SHANTA Y Location: [place] [address] Problem List (1) Chest pain Status: Acute History of Present Illness Date of Admission: 09/27/18 Chief Complaint: chest pain The patient is a 68 year old M with a significant history of 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 fib; lower extremity lymphedema; type 2 diabetes mellitus; LEDA who presents with a two-week history of episodic nonradiating chest pain. His chest pain is located below her bilateral breast and at the sites of his bilateral breast. He describes chest pain as pressurized and burning. Two days he went to an Urgent Care at [facility] where he was found to be hypoxic and was instructed to come to the ED for further evaluation. Because of progressively worsening chest pain he presented to the emergency department for further evaluation. He denied any associated diaphoresis, nausea or vomiting. He had a negative chemical stress test about 4-5 years ago. Past Medical History Past Medical History (Chronic Problems): Chronic Problems Hyperthyroidism (Chronic) recently diagnosed Obesity (BMI 30-39.9) (Chronic) GERD (gastroesophageal reflux disease) (Chronic) History of Dotson's esophagus (Chronic) Atrial fibrillation (Chronic) Clotting disorder (Chronic) on Arixstra....had DVT while on Coumadin CRF (chronic renal failure) (Chronic) Venous hypertension of both lower extremities (Chronic) LEDA (obstructive sleep apnea) (Chronic) non-compliant with CPAP Allergies No Known Allergies Allergy (Verified 09/27/18 17:09) Home Medications: Ambulatory Orders Medication Instructions Recorded Fondaparinux Sodium [Arixtra] 10 mg SQ DAILY 12/21/14 Surgical History: - - foot surgery, uvulectomy? for sleep apnea. Bilateral knee replacement. Psychiatric History: No pertinent psych hx Lives: Spouse/ Significant Other Smoking Status: Never smoker Alcohol: None - *Family History Maternal History Items: Diabetes, Heart Disease, - - mother at 69 with CHF and she had DM Paternal History Items: Heart Disease - dad at 81 with CHF, - Review of Systems Constitutional: Denies: Chills, Fever, Weight Change HEENT: Denies: Head Aches, Sinus Congestion, Sinus Drainage Cardiovascular: Reports: Chest Pain. Denies: Palpitations Respiratory: Reports: Shortness of Breath. Denies: Cough, Sputum production Gastrointestinal: Denies: Abdominal Pain, Nausea, Vomiting Genitourinary: Denies: Dysuria Musculoskeletal: Denies: Joint Pain, Joint Tenderness Skin: Denies: Rash, Wounds Neurological: Denies: Numbness, Tingling, Focal weakness Psychiatric: Denies: Anxiety, Depression, Homicidal Ideations, Suicidal Ideations Hematologic/ Lymphatic: Denies: Easy Bruising, Easy Bleeding VTE Information - Inpt Only VTE Present on Admission: No VTE Mechan Device Prophylaxis: None VTE Pharm Prophylaxis ordered?: No Reason prophylaxis not ordered:: Treatment Not Indicated - On fondaparinux for hypercoagulable disorder Patient Problems: Active and Suspected Problems Chest pain (Acute) - Physical Exam General: Alert, Oriented x3, Cooperative HEENT: Atraumatic, PERRLA, EOMI, Normocephalic Neck: Supple, No JVD, Negative Carotid Bruits Lungs: Clear to auscultation, Normal air movement Cardiovascular: Regular rate, No murmurs Abdomen: Bowel Sounds Present, Soft, Non Tender Extremities: Capillary Refill Less than 3 Seconds, Edema - Bilateral leg nonpitting edema Skin: No rashes, No breakdown Musculoskeletal: No Tenderness to Palpation of Joints or Extremities Neurological: Neuro grossly intact Psych/Mental Status: Normal Affect, Appropriate Vital Signs Temp Pulse Resp BP Pulse Ox 97.0 F L 57 L 24 H 133/88 H 95 09/27/18 17:06 09/27/18 20:54 09/27/18 20:54 09/27/18 20:54 09/27/18 20:54 Oxygen Flow Rate (L/min) 2 Oxygen Delivery Method Nasal Cannula Weight: 151.8 kg Body Mass Index (BMI) 49.4 Laboratory Tests Past 24 Hrs Assessment/Plan All Active Problems Chest pain (Acute) Contusion (Acute) Left leg swelling (Acute) Cellulitis (Acute) History of DVT (deep vein thrombosis) (Resolved) The patient is a 68 year old M with a significant history of 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 fib; lower extremity lymphedema; type 2 diabetes mellitus who presents with a two-week history of episodic nonradiating chest pain. Chest pain CARMELA score is 0-1 Admit to a monitored bed on PCU EKG independently reviewed confirms sinus rhythm Aspirin 325 mg x1. ASA 81 mg p.o. daily. Starting on high intensity statin. SL NTG 0.4 mg prn as needed for chest pain Home metoprolol continued. Serial cardiac enzymes Lipid panel ordered. Stat EKG as needed for chest pain Chemical Stress test in the AM if the cardiac enzymes are negative. Unable to do treadmill stress test because of history of bilateral knee replacement. Hypercoagulable disorder with DVT and PE Patient reported that he treatment clot was on Coumadin. Home fondaparinux continued Type 2 diabetes On admission blood glucose was within goal. We will hold metformin for now Correction scale insulin ordered. Paroxysmal A. fib Patient in normal sinus rhythm at admission. Metoprolol continued Fondaparinux continued. Obstructive sleep apnea Patient describes uvuloplasty in the past and on CPAP at home. CPAP continued. DVT prophylaxis Not indicated in the setting of home fondaparinux that has been continued. Code Visit OBSV E AND M: 16442 Initial observation care L3 09/27/18 1309 <Electronically signed by Jacob Murillo MD> Date Jacob Murillo MD Cosigner Signature: Date (if applicable) CC: Jacob Murillo MD; Avinash Willis MD Signed BEDSIDE GLUCOSE Collected: 09/27/2018 Status: F Source: [place] 11:34 PM [facility] REPOSITORY TYPE CODE TESTS RESULT OUT OF REFERENCE UNITS RANGE LAB L501.080 70-110 mg/dL High BEDSIDE GLU 158 Result Comment: MANAGEMENT OF PATIENT CARE PER NURSING PROTOCOL Performed By: #### L501.080 #### [facility] Point of Care [address] [facility] [facility] [place] [address] EMERGENCY DEPARTMENT Observed: 09/27/2018 Status: F Source: [place] SUMMARY 11:04 PM [facility] REPOSITORY [facility] Medical Records Department [address] [place] [address] Emergency Department Summary 09/27/18 1744 MR#: [id number] Acct: [id number] Name: IVELISSE CAPONE Rep #: [id number] : 1950 68 From: Todd Knowles MD PCP: Avinash Willis MD Status: ADM SHANTA - ER Visit Summary Date of Service: 09/27/18 Chief Complaint: Chest pain History of Present Illness: The patient is a 68 M no prior cardiac history. History of hypercoagulable state on anticoagulation. He has had prior DVT and prior PE. Also prior history of A. fib. Patient states the last 2 weeks he has had chest pain has been there more often than not. And associated exertional shortness of breath. He states he had a negative stress test about 4 years ago at the [facility]. He states exertion does not change his chest pain. He denies any hemoptysis. States he has chronic leg edema that is not changed. He denies any recent travel, surgery or immobilization. No recent hospitalization. He is currently having chest pain. Physical Examination: Older male no acute distress. Vital signs are stable. He is afebrile. His pulse ox is 95% on room air no hypoxia. HEENT exam unremarkable. Neck nontender. Lungs clear to auscultation bilaterally. Heart regular rhythm rate about 60 no murmur. Chest wall nontender. Abdomen obese but soft. Nontender normal bowel sounds no peritoneal signs. Patient is moving all 4 extremities. 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 Dorsi plantar flexion intact. He has chronic lower extremity edema bilaterally. Neurologically is awake and alert with no focal motor deficits. Test Results: EKG shows sinus rhythm rate of 61 with no acute abnormality. No ischemia. Chest x-ray shows normal cardiac silhouette mediastinum read both by myself and the radiologist. CBC shows a white count of 9. Hemoglobin of 14 is unremarkable. Chemistries are unremarkable with a normal gap. Troponin and d-dimer are both normal. Emergency Department Course and Treatment: She will undergo a cardiac workup. Repeat exam at 2100 patient is doing well. He is comfortable being admitted for further evaluation of his chest pain of uncertain etiology. Treatment Plan: I have spoken to the overnight hospitalist who will evaluate the patient for admission. Disposition: Admission Impression: Acute chest pain of uncertain etiology with exertional dyspnea History of hypercoagulable state on anticoagulation. History of wkv-qntqrns-jfhoyvubt diabetes, prior PE and DVT This note was generated with PubliAtisation software. It may contain incorrect words, spelling, and punctuation that were not noted in review of the chart prior to signing ED Disposition - Plan for ED Patient: Chief Complaint: Shortness of Breath Referrals: Avinash Willis MD [Primary Care Provider] - What to do if you have Problems For any increased pain, shortness of breath, bleeding, nausea or vomiting, chest pain, or any unexpected problems, contact your Primary Care Provider. Call [facility] ([phone]) or report to the closest Emergency Room. Call 911 if necessary. 09/27/18 2304 <Electronically signed by Todd Knowles MD> Date Todd Knowles MD Cosigner Signature (If Indicated): Date CC: Avinash Willis MD CBC W/DIFF, AUTOMATED Collected: 09/27/2018 Status: F Source: [place] 5:44 PM [facility] REPOSITORY TYPE CODE TESTS RESULT OUT OF RANGE REFERENCE UNITS LAB L100.1000 4.4-11.0 K/mm3 Normal WBC 9.5 LAB L100.1200 4.6-6.2 M/mm3 Normal RBC 4.90 LAB L100.1300 13.0-16.5 g/dl Normal HGB 14.7 LAB L100.1400 40-54 % Normal HCT 44.2 LAB L100.1500 80-94 fL Normal MCV 90.2 LAB L100.1600 27.0-32.0 pg Normal MCH 30.0 LAB L100.1700 32-36 g/gl Normal MCHC 33.3 LAB L100.1810 11.6-14.6 % Normal RDW CV 14.5 LAB L100.1820 35.1-43.9 fl High RDW SD 47.3 LAB L100.1900 150-450 K/mm3 Normal PLT 210 LAB L100.2000 6.2-12.0 fl Normal MPV 8.7 LAB L100.2100 47-70 % Normal NEUT% 55.3 LAB L100.2200 19-41 % Normal LY% 31.5 LAB L100.2300 0-10 % High MONO% 10.3 LAB L100.2400 0-5 % Normal EO% 2.5 LAB L100.2500 0-1 % Normal BASO% 0.3 LAB L100.2550 0.0-0.9 % Normal IM GRAN % 0.100 Result Comment: IG% - Immature Granulocytes (promyelocytes, myelocytes and metamyelocytes) > 1% indicates that a LEFT SHIFT is Present. LAB L100.2620 2.0-7.7 X10 3/uL Normal Absolute Neut 5.3 LAB L100.2720 0.83-4.51 X10 3/ul Normal Absolute Lymph 2.99 Performed By: #### L100.0100 #### [facility] [address] [facility] [place], [place], [address] D-DIMER QUANTITATIVE Collected: 09/27/2018 Status: F Source: [place] (DVT/PE) 5:44 PM [facility] REPOSITORY TYPE CODE TESTS RESULT OUT OF RANGE REFERENCE UNITS LAB L300.8000 0.27-0.49 FEU/ug/m Normal D-DIMER 0.27 QUANT Result Comment: NORMAL D-Dimer level (<0.50) indicates no DVT or PE. Performed By: #### L300.8000 #### [facility] [address] [facility]. [place], [place], [address] BASIC METABOLIC Collected: 09/27/2018 Status: F Source: [place] PROFILE (BMP) 5:44 PM [facility] REPOSITORY TYPE CODE TESTS RESULT OUT OF RANGE REFERENCE UNITS LAB L501.0100 74-106 mg/dL High GLU 120 Result Comment: Fasting Glucose result from 100 to 125 mg/dL suggests IMPAIRED HOMEOSTASIS per A.D.A. criteria. Please note revised GLUCOSE reference range effective 2017. LAB L501.1000 7-18 mg/dL High BUN 26 LAB L501.1100 0.70-1.30 mg/dL Normal CREAT,SERUM 1.21 Result Comment: The validity of the calculated GFR AND GFRAA in patients over 70 years has not been determined. Clinical correlation is essential. LAB L501.1110 >60 mL/min Normal EST GFR 63 Result Comment: Non- GFR Calc LAB L501.1115 >60 mL/min Normal EST GFR - AA 76 Result Comment: GFR Calc LAB L501.1255 ml/min Normal Estimated CRCL 57.62 LAB L501.1300 10-20 RATIO High BUN/CRE 21.5 LAB L501.2200 8.5-10 mg/dL Low .1 CA 8.1 LAB L501.5300 136-14 mmol/L Normal 5 NA 141 LAB L501.5600 3.5-5. mmol/L Normal 1 K 4.1 LAB L501.5900 98-107 mmol/L Normal CL 107 LAB L501.6100 21.0-3 mmol/L Normal 2.0 CO2 28.0 LAB L501.6200 5-15 Normal GAP 6 Performed By: #### L500.2500, L501.4010 #### [facility] [address] [facility] [place], [address] TROPONIN-I Collected: 09/27/2018 Status: F Source: [place] 5:44 PM [facility] REPOSITORY TYPE CODE TESTS RESULT OUT OF RANGE REFERENCE UNITS LAB L501.4010 <0.045 ng/mL Normal < 0.015 TROPONIN-I Result Comment: TROPONIN-I EXPECTED VALUES <0.045 Negative 0.045 - 0.590 Consistent with Cardiac Damage > OR = 0.600 Critical Value Not every elevated troponin is indicative of NC. These values should be used with clinical judgement in examining the patient's clinical picture for diagnosis. To establish a diagnosis of NC versus myocardial injury, there must be a demonstrated rise and/or fall in the troponin values, in addition to ischemic symptoms, EKG changes, new regional wall motion abnormality, and/or angiographical evidence. PLEASE NOTE: REFERENCE RANGES EDITED 18 Performed By: #### L500.2500, L501.4010 #### [facility] [address] [facility] [place], [address] CHEST 1 VIEW Observed: 09/27/2018 Status: F Source: [place] (PORTABLE) 5:35 PM [facility] REPOSITORY [facility] Imaging Services [address] [place] [id number] Chest 1 View (Portable) MR#: [id number] Acct: [id number] Name: IVELISSE CAPONE Rep #: [id number] : 1950 M 68 From: Erik Bonilla MD PCP: Avinash Willis MD Status: REG ER Study: Chest 1 View (Portable) Date of Exam: 09/27/18 Exam# [id number] Ordering Dr: Todd Knowles MD STUDY: X-RAY CHEST REASON FOR EXAM: Male, 68 years old. Shortness of breath, chest pain. TECHNIQUE: Single AP portable upright view of the chest. COMPARISON: None. FINDINGS: The lungs are clear and expanded. There is no demonstrated pleural abnormality. Normal size heart. Normal mediastinum and yadira. Normal visualized pulmonary arteries. There is mild atherosclerotic calcification of the aortic arch. There are multilevel degenerative changes of the visualized thoracic spine. Normal visualized ribs, clavicles, and shoulders. There is no demonstrated abnormality of the visualized soft tissue structures of the upper abdomen. RAD/Chest 1 View (Portable) IMPRESSION: No acute cardiopulmonary disease. Electronically Signed: J Luis Bonilla MD at 18:05 EST , Service support , CC: Todd Knowles MD; Avinash Willis MD Composition Floor Setter: Signed PROGRESS Observed: 09/20/2018 Status: COMPLETED Source: [place] 7:47 PM [facility] REPOSITORY HNO ID: [id number] Author: Barrett (Nawaf Ríos Service: (none) Author Type: Nurse Practitioner Type: Progress Notes Filed: 09/20/2018 8:28 PM Note Text: Subjective HPI HPI Ivelisse Capone is a 68 year old male who presents today for CC of itchy rash on groin folds and abdominal folds. This started over 1 month ago. Was prescribed nystatin powder with success but rash returns. Has had 5/10 chest pressure for past week. Cough only in AM. Hx of CHF, AF, PE, DM. [facility] 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 Medellin - PAST SURGICAL HISTORY OF 11/21/15 Left total knee replacement [facility] - REPAIR OF HYDROCELE 04/2015 - THROAT SURGERY PROCEDURE 97 for sleep anpea - TONSILLECTOMY HX ALLERGIES Patient has no known allergies. MEDICATIONS atorvastatin (LIPITOR) 10 mg tablet Take 1 tablet by mouth daily at bedtime. For cholesterol. spironolactone (ALDACTONE) 25 mg tablet Take 1 tablet by mouth once daily. benzonatate (TESSALON PERLES) 100 mg capsule Take 1 capsule by mouth three times daily as needed. FOR COUGHING. Cholecalciferol, Vitamin D3, 5,000 unit cap Take 1 capsule by mouth once daily. COMPOUNDED PRESCRIPTION Please replace patient's cpap mask. metFORMIN (GLUCOPHAGE) 500 mg tablet Take 1 tablet by mouth daily with breakfast. furosemide (LASIX) 40 mg tablet Take 1 tablet by mouth once daily. omeprazole (PRILOSEC) 20 mg capsule Take 20 mg by mouth twice daily. traMADol (ULTRAM) 50 mg tablet Take 50 mg by mouth every 6 hours as needed. rOPINIRole (REQUIP) 2 mg tablet Take 6 mg by mouth daily at bedtime. dextran 70-hypromellose (TEARS NATURALE II) ophthalmic solution Use 1 Drop in the right eye as needed. metHIMazole (TAPAZOLE) 10 mg tablet Take 10 mg by mouth twice daily. fondaparinux (ARIXTRA) 10 mg/0.8 mL syrg Inject 0.8 mL subcutaneously q 24 HR. docusate sodium (COLACE) 100 mg capsule Take 1 capsule by mouth twice daily. metoprolol tartrate, short acting, (LOPRESSOR) 50 mg tablet Take 1 tablet by mouth twice daily. hydrOXYzine HCl 25 mg tablet Take 25 mg by mouth three times daily as needed. sildenafil 100 mg tablet Take 100 mg by mouth as needed. FAMILY HISTORY Problem Relation Age of Onset - Kidney Disease Father - Diabetes Father - Blood Disease Father - Blood Disease Mother - Heart Mother - Stroke Mother - Prostate Cancer Maternal Grandfather And throat cancer - Heart Paternal Grandfather - Ischemic Heart Disease Paternal Grandfather Social History Substance Use Topics - Smoking status: Never Smoker - Smokeless tobacco: Never Used Comment: Parents smoked in childhod home. Has lived with smokers as adult. - Alcohol use No Review of Systems Constitutional: Negative for chills and fever. Skin: Positive for itching and rash. Objective Blood pressure 138/82, pulse 78, temperature 36.9 ?C (98.5 ?F), temperature source Tympanic, resp. rate 16, weight (!) 150.6 kg (332 lb). Physical Exam Constitutional: He is oriented to person, place, and time and well-developed, well-nourished, and in no distress. Non-toxic appearance. He does not have a sickly appearance. No distress. HENT: Head: Normocephalic and atraumatic. Cardiovascular: Normal rate, regular rhythm, S1 normal, S2 normal and normal heart sounds. Pulmonary/Chest: Effort normal and breath sounds normal. Neurological: He is alert and oriented to person, place, and time. Gait normal. Skin: He is not diaphoretic. ASSESSMENT/PLAN: 1. Intertrigo - ICD9: 695.89, ICD10: L30.4 (primary diagnosis) -use medication as prescribed -follow up if symptoms persist, worsen, change -use medication for 1 week past when rash subsides -discussed hygiene - NYSTATIN 100,000 UNIT/GRAM TOPICAL CREAM - NYSTATIN 100,000 UNIT/GRAM TOPICAL POWDER 2. Chest pressure - ICD9: 786.59, ICD10: R07.89 -risk factors are hx of CHF, AF, DM, PE -I recommend ER evaluation/treatment -report called to [facility] ER -patient declined squad, will drive pov Prescription instructions reviewed with patient as applicable. Patient advised if symptoms do not improve or if symptoms worsen sooner, to contact the office for further evaluation by their primary care physician. Potential red flag symptoms discussed with the patient. Reviewed appropriate action plan to take if red flag symptoms occur. Patient agreeable to treatment plan. Barrett Ríos APRN.CNP CNOV Observed: 09/20/2018 Status: COMPLETED Source: [place] 7:30 PM [facility] REPOSITORY Office Visit (WSTR) IVELISSE CAPONE ([id number]) 1950 M T Date Time Provider Department 09/20/18 7:30 PM BARRETT RÍOS (HALEY) [facility] During your visit today, we recorded the following information about you: Temperature Pulse Respiration Blood pressure 98.5 degrees 78/minute 16/minute 138/82 Weight 150.6 kg Barrett Ríos APRN.CNP 09/20/2018 8:28 PM Signed Subjective HPI HPI Ivelisse Capone is a 68 year old male who presents today for CC of itchy rash on groin folds and abdominal folds. This started over 1 month ago. Was prescribed nystatin powder with success but rash returns. Has had 5/10 chest pressure for past week. Cough only in AM. Hx of CHF, AF, PE, DM. [facility] .Patient presents with: Rash: itching in groin and abdominal area x 1 month using prescribed powders and ointments PAST MEDICAL HISTORY Diagnosis Date - A-fib ([facility]) - BPH (benign prostatic hyperplasia) - DVT (deep venous thrombosis) ([facility]) December 2009 L popliteal vein - Dysfibrinogenemia ([facility]) Dx 2007 - Fibrinogen-fibrin inhibitor disorder ([facility]) Against Fpa- Tx with rituximab Jul 2010 - GERD (gastroesophageal reflux disease) - Hyperthyroidism - Hypofibrinogenemia ([facility]) Dx 2007 - LEDA on CPAP - Pulmonary embolism (HCC) 2009, Sep - Restless legs syndrome PAST SURGICAL HISTORY Procedure Laterality Date - COLONOSCOPY 2012 - FOOT/TOES SURGERY PROC UNLISTED 95 - PAST SURGICAL HISTORY OF 08/20/15 Right Total Knee replacement, Dr. Medellin - PAST SURGICAL HISTORY OF 11/21/15 Left total knee replacement [facility] - REPAIR OF HYDROCELE 04/2015 - THROAT SURGERY PROCEDURE 97 for sleep anpea - TONSILLECTOMY HX ALLERGIES Patient has no known allergies. MEDICATIONS atorvastatin (LIPITOR) 10 mg tablet Take 1 tablet by mouth daily at bedtime. For cholesterol. spironolactone (ALDACTONE) 25 mg tablet Take 1 tablet by mouth once daily. benzonatate (TESSALON PERLES) 100 mg capsule Take 1 capsule by mouth three times daily as needed. FOR COUGHING. Cholecalciferol, Vitamin D3, 5,000 unit cap Take 1 capsule by mouth once daily. COMPOUNDED PRESCRIPTION Please replace patient's cpap mask. metFORMIN (GLUCOPHAGE) 500 mg tablet Take 1 tablet by mouth daily with breakfast. furosemide (LASIX) 40 mg tablet Take 1 tablet by mouth once daily. omeprazole (PRILOSEC) 20 mg capsule Take 20 mg by mouth twice daily. traMADol (ULTRAM) 50 mg tablet Take 50 mg by mouth every 6 hours as needed. rOPINIRole (REQUIP) 2 mg tablet Take 6 mg by mouth daily at bedtime. dextran 70-hypromellose (TEARS NATURALE II) ophthalmic solution Use 1 Drop in the right eye as needed. metHIMazole (TAPAZOLE) 10 mg tablet Take 10 mg by mouth twice daily. fondaparinux (ARIXTRA) 10 mg/0.8 mL syrg Inject 0.8 mL subcutaneously q 24 HR. docusate sodium (COLACE) 100 mg capsule Take 1 capsule by mouth twice daily. metoprolol tartrate, short acting, (LOPRESSOR) 50 mg tablet Take 1 tablet by mouth twice daily. hydrOXYzine HCl 25 mg tablet Take 25 mg by mouth three times daily as needed. sildenafil 100 mg tablet Take 100 mg by mouth as needed. FAMILY HISTORY Problem Relation Age of Onset - Kidney Disease Father - Diabetes Father - Blood Disease Father - Blood Disease Mother - Heart Mother - Stroke Mother - Prostate Cancer Maternal Grandfather And throat cancer - Heart Paternal Grandfather - Ischemic Heart Disease Paternal Grandfather Social History Substance Use Topics - Smoking status: Never Smoker - Smokeless tobacco: Never Used Comment: Parents smoked in childhod home. Has lived with smokers as adult. - Alcohol use No Review of Systems Constitutional: Negative for chills and fever. Skin: Positive for itching and rash. Objective Blood pressure 138/82, pulse 78, temperature 36.9 ?C (98.5 ?F), temperature source Tympanic, resp. rate 16, weight (!) 150.6 kg (332 lb). Physical Exam Constitutional: He is oriented to person, place, and time and well-developed, well-nourished, and in no distress. Non-toxic appearance. He does not have a sickly appearance. No distress. HENT: Head: Normocephalic and atraumatic. Cardiovascular: Normal rate, regular rhythm, S1 normal, S2 normal and normal heart sounds. Pulmonary/Chest: Effort normal and breath sounds normal. Neurological: He is alert and oriented to person, place, and time. Gait normal. Skin: He is not diaphoretic. ASSESSMENT/PLAN: 1. Intertrigo - ICD9: 695.89, ICD10: L30.4 (primary diagnosis) -use medication as prescribed -follow up if symptoms persist, worsen, change -use medication for 1 week past when rash subsides -discussed hygiene - NYSTATIN 100,000 UNIT/GRAM TOPICAL CREAM - NYSTATIN 100,000 UNIT/GRAM TOPICAL POWDER 2. Chest pressure - ICD9: 786.59, ICD10: R07.89 -risk factors are hx of CHF, AF, DM, PE -I recommend ER evaluation/treatment -report called to [facility] ER -patient declined squad, will drive pov Prescription instructions reviewed with patient as applicable. Patient advised if symptoms do not improve or if symptoms worsen sooner, to contact the office for further evaluation by their primary care physician. Potential red flag symptoms discussed with the patient. Reviewed appropriate action plan to take if red flag symptoms occur. Patient agreeable to treatment plan. Barrett Ríos APRN.HALEY Referring Provider: SELF [200] Allergies As of Date: 09/20/2018 (No Known Allergies) Date Reviewed: 09/20/2018 Reviewed by: Barrett (Haley) - Fully Assessed Reason for Visit: Rash [1087] Cmt: itching in groin and abdominal area x 1 month using prescribed powders and ointments Primary Visit Diagnosis:Intertrigo [L30.4] Other Visit Diagnosis:Chest pressure [R07.89] Order(s):nystatin (MYCOSTATIN) creamApply 1 application to affected area three times daily.Disp: 30 gRfl: 1 nystatin (MYCOSTATIN) powderApply 1 application to affected area three times daily.Disp: 30 gRfl: 1 Prescriptions as of 09/20/2018 Sig: ATORVASTATIN 10 MG TABLET Take 1 tablet by mouth daily * SPIRONOLACTONE 25 MG TABLET Take 1 tablet by mouth once d* BENZONATATE 100 MG CAPSULE Take 1 capsule by mouth three* CHOLECALCIFEROL (VITAMIN D3) * Take 1 capsule by mouth once * COMPOUNDED PRESCRIPTION Please replace patient's cpap* METFORMIN 500 MG TABLET Take 1 tablet by mouth daily * FUROSEMIDE 40 MG TABLET Take 1 tablet by mouth once d* OMEPRAZOLE 20 MG CAPSULE,ELSA* Take 20 mg by mouth twice silvino* TRAMADOL 50 MG TABLET Take 50 mg by mouth every 6 h* ROPINIROLE 2 MG TABLET Take 6 mg by mouth daily at b* DEXTRAN 70-HYPROMELLOSE EYE D* Use 1 Drop in the right eye a* METHIMAZOLE 10 MG TABLET Take 10 mg by mouth twice silvino* FONDAPARINUX 10 MG/0.8 ML SUB* Inject 0.8 mL subcutaneously * DOCUSATE SODIUM 100 MG CAPSULE Take 1 capsule by mouth twice* Patient taking differently: Take 100 mg by mouth twice da* METOPROLOL TARTRATE 50 MG TAB* Take 1 tablet by mouth twice * HYDROXYZINE HCL 25 MG TABLET Take 25 mg by mouth three maliha* SILDENAFIL 100 MG TABLET Take 100 mg by mouth as neede* NYSTATIN 100,000 UNIT/GRAM TO* Apply 1 application to affect* NYSTATIN 100,000 UNIT/GRAM TO* Apply 1 application to affect* Problem List As Of Date 09/20/2018 Noted Resolved BPH (benign prostatic hyperplasia) [N40.0] Pulmonary embolism [I26.99] More... Restless legs syndrome [G25.81] Rotator cuff (capsule) sprain [S43.429A] INVALID FOR* Pain in joint, shoulder region [M25.519] INVALID FOR* Pain in joint, lower leg [M25.569] INVALID FOR* Osteoarthrosis, unspecified whether generalized*INVALID FOR* Fibrinogen-fibrin inhibitor disorder (HCC) [D68* More... Edema of both legs [R60.0] INVALID FOR*05/14/2017 SOB (shortness of breath) on exertion [R06.02] INVALID FOR* Venous insufficiency (chronic) (peripheral) [I8*INVALID FOR* A-fib (HCC) [I48.91] INVALID FOR*05/18/2016 Hydrocele [N43.3] INVALID FOR* Paroxysmal atrial fibrillation (HCC) [I48.0] INVALID FOR* Hyperthyroidism [E05.90] INVALID FOR* Hypervolemia [E87.70] INVALID FOR*03/14/2018 Chronic anticoagulation [Z79.01] INVALID FOR* Renal insufficiency [N28.9] INVALID FOR* Obesity, Class III, BMI >= 40 (morbid obesity) *INVALID FOR*03/14/2018 Controlled type 2 diabetes mellitus without com*INVALID FOR* Pain in left hip [M25.552] INVALID FOR* Morbid obesity, unspecified obesity type (HCC) *INVALID FOR* 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 NYSTATIN 100,000 UNIT/GRAM TOPICAL P* 30 g 1 09/20/2018 Cmt: Apply until 1 week after rash gone Route: TOPICAL Sig: Apply 1 application to affected area three times daily. Encounter Status:Closed by BARRETT RÍOS CNP on 09/20/18 COMP METABOLIC PANEL Collected: 05/12/2018 Status: F Source: [place] 11:52 AM [facility] REPOSITORY TYPE CODE TESTS RESULT OUT OF REFERENCE UNITS RANGE LAB TP 6.3-8.0 g/dL Protein, Total 6.9 LAB ALB 3.9-4.9 g/dL Low Albumin 3.7 LAB CA 8.5-10.2 mg/dL Calcium, Total 9.1 LAB TBIL 0.2-1.3 mg/dL Bilirubin, Total 0.2 LAB ALKP 36-108 U/L Alkaline Phosphatase 73 LAB AST 14-40 U/L AST 24 LAB GLU 74-99 mg/dL Glucose High 169 Result Comment: The [place] Diabetes Association (ADA) provides guidance for cutoff values for fasting glucose and random glucose. The ADA defines fasting as no caloric intake for at least 8 hours. Fas ting plasma glucose results between 100 to 125 mg/dL indicate increased risk for diabetes (prediabetes). Fasting plasma glucose results greater than or equal to 126 mg/dL meet the criteria for diagnosis of diabetes. In the absence of unequivocal hyperglycemia, results should be confirmed by repeat testing. In a patient with classic symptoms of hyperglycemia or hyperglycemic crisis, random plasma glucose results greater than or equal to 200 mg/dL meet the criteria for diagnosis of diabetes. Reference: Standards of Medical Care in Diabetes 2016, [place] Diabetes Association. Diabetes Care. 2016.39(Suppl 1). LAB BUN 9-24 mg/dL BUN 24 LAB CRET 0.73-1.22 mg/dL Creatinine 1.19 LAB NA 136-144 mmol/L Sodium 141 LAB K 3.7-5.1 mmol/L Potassium 4.6 LAB CL 97-105 mmol/L Chloride 105 LAB CO2 22-30 mmol/L CO2 25 LAB AGAP 9-18 mmol/L Anion Gap 11 LAB ALT 10-54 U/L ALT 18 LAB GFRAA eGFR- Amer. >60 LAB GFRNAA . eGFR-All Other Races >60 Result Comment: eGFR (Estimated GFR) Units of measure: mL/min/1.73 meters squared eGFR is derived from the reexpressed MDRD Study equation using the following parameters: serum creatinine, age, gender and race. The creatinine assay has been calibrated to be traceable to IDMS. An eGFR <60 mL/min/1.73m2 for >3 months is consistent with chronic kidney disease. Refer to KDOQI guidelines for clinical interpretation. In patients with unstable renal function, e.g. those with acute kidney injury, the eGFR may not accurately reflect actual GFR. Performed By: #### CMP, LIPNF, HBA1C #### [facility] [address] [place], [place] [address] LIPID PANEL, NONFAST Collected: 05/12/2018 Status: F Source: [place] 11:52 AM [facility] REPOSITORY TYPE CODE TESTS RESULT OUT OF REFERENCE UNITS RANGE LAB CHOLNF <200 mg/dL Total Cholesterol NF 154 Result Comment: <200 mg/dL, Desirable 200-239 mg/dL, Borderline high >239 mg/dL, High LAB TRIGNF <150 mg/dL Triglycerides, NF High 169 Result Comment: <150 mg/dL, Normal 150-199 mg/dL, Borderline high 200-499 mg/dL, High >499 mg/dL, Very high LAB HDLNF >39 mg/dL HDL Cholesterol, NF 42 Result Comment: 40-59 mg/dL, Acceptable >59 mg/dL, High: Negative risk factor for coronary heart disease <40 mg/dL, Low: Positive risk factor for coronary heart disease LAB LDLNF <100 mg/dL LDL Cholesterol, NF 78 Result Comment: <100 mg/dL, Optimal 100-129 mg/dL, Near optimal/above optimal 130-159 mg/dL, Borderline high 160-189 mg/dL, High >189 mg/dL, Very high Secondary prevention optimal LDL Cholesterol levels are recommended to be < 70 mg/dL LAB NOHDLN <130 mg/dL Non HDL Chol, 112 NF Result Comment: <130 mg/dL, Optimal 130-159 mg/dL, Near optimal/above optimal 160-189 mg/dL, Borderline high 190-219 mg/dL, High >219 mg/dL, Very high Secondary prevention optimal non HDL Cholesterol levels are recommended to be < 100 mg/dL LAB VLDLNF <30 mg/dL VLDL Cholesterol, High NF 34 LAB TCHDLN <5.10 mg/dL T Chol/HDL Ratio NF 3.67 LAB LDLHDN <2.54 mg/dL LDL/HDL Ratio, NF 1.86 Result Comment: Reference: 1. National Cholesterol Education Program ATP III Guideline At-A-Glance Quick Desk Reference: National Heart, Lung, and Blood Martha. National Institutes of Health. 2001: NIH Publication No. 01-3305. 2. An International Atherosclerosis Society position paper: global recommendations for the management of dyslipidemia: executive summary, Atherosclerosis. 2014: 232(2):410-413. Performed By: #### CMP, LIPNF, HBA1C #### [facility] [address] [place], [place] [address] HEMOGLOBIN A1C Collected: 05/12/2018 Status: F Source: [place] 11:52 AM [facility] REPOSITORY TYPE CODE TESTS RESULT OUT OF REFERENCE UNITS RANGE LAB HGBA1C 4.3-5.6 % High Hemoglobin A1c 6.3 LAB HBA0 mg/dL Est. Average Glucose 134 Result Comment: eAG: (Estimated average glucose) is a calculated value from HgbA1c and is quality audit representative of the average blood glucose level in the last 2-3 month period. Performed By: #### CMP, LIPNF, HBA1C #### [facility] [address] [place], [place] [address] PROGRESS Observed: 05/12/2018 Status: COMPLETED Source: [place] 11:33 AM [facility] REPOSITORY HNO ID: [id number] Author: Khadra Muniz Service: (none) Author Type: Nurse Practitioner Type: Progress Notes Filed: 05/12/2018 12:10 PM Note Text: This is a 68 year old male who presents today with: Patient presents with: Recheck: recheck leg- left leg HISTORY OF PRESENT ILLNESS: Ivelisse Capone is a 68 year old male. Patient presents with: Recheck: recheck leg- left leg Worsening leg redness for the last week. Frequent infections/cellulitis. No pain. Increased warmth. No fever/chills. Due for labwork today. Refers that he needs a new cpap mask. His is several years old and with poor fit. [facility] He reports that he had his diabetic eye exam through them. Chronic anticoagulation. No s/s of bleeding. 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 Medellin - PAST SURGICAL HISTORY OF 11/21/15 Left total knee replacement [facility] - REPAIR OF HYDROCELE 04/2015 - THROAT SURGERY PROCEDURE 97 for sleep anpea - TONSILLECTOMY HX ALLERGIES Patient has no known allergies. MEDICATIONS Current Outpatient Prescriptions: spironolactone (ALDACTONE) 25 mg tablet Take 1 tablet by mouth once daily. metFORMIN (GLUCOPHAGE) 500 mg tablet Take 1 tablet by mouth daily with breakfast. furosemide (LASIX) 40 mg tablet Take 1 tablet by mouth once daily. omeprazole (PRILOSEC) 20 mg capsule Take 20 mg by mouth twice daily. traMADol (ULTRAM) 50 mg tablet Take 50 mg by mouth every 6 hours as needed. rOPINIRole (REQUIP) 2 mg tablet Take 6 mg by mouth daily at bedtime. dextran 70-hypromellose (TEARS NATURALE II) ophthalmic solution Use 1 Drop in the right eye as needed. metHIMazole (TAPAZOLE) 10 mg tablet Take 10 mg by mouth twice daily. fondaparinux (ARIXTRA) 10 mg/0.8 mL syrg Inject 0.8 mL subcutaneously q 24 HR. docusate sodium (COLACE) 100 mg capsule Take 1 capsule by mouth twice daily. (Patient taking differently: Take 100 mg by mouth twice daily as needed.) metoprolol tartrate, short acting, (LOPRESSOR) 50 mg tablet Take 1 tablet by mouth twice daily. hydrOXYzine HCl 25 mg tablet Take 25 mg by mouth three times daily as needed. sildenafil 100 mg tablet Take 100 mg by mouth as needed. benzonatate (TESSALON PERLES) 100 mg capsule Take 1 capsule by mouth three times daily as needed. FOR COUGHING. Cholecalciferol, Vitamin D3, 5,000 unit cap Take 1 capsule by mouth once daily. doxycycline monohydrate (MONODOX) 100 mg capsule Take 1 capsule by mouth twice daily for 10 days. No current facility-administered medications for this visit. 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 Social History Main Topics Smoking status: Never Smoker Smokeless tobacco: Never Used Comment: Parents smoked in childhod home. Has lived with smokers as adult. Alcohol use: No Drug use: No Social History Narrative In current home 11 years, condominium, [place]. Damp basement. No known mold problems. Gas F/A, central A/C. Monthly air filters. 6 cats in home, with master BR access. No birds. EXAM: BP 120/68 (BP Site: Left Arm, BP Position: Sitting, BP Cuff Size: Large Adult) Pulse 72 Temp 36.7 ?C (98.1 ?F) (Left Tympanic) Resp 14 Wt (!) 152.8 kg (336 lb 12.8 oz) BMI 53.55 kg/m? PHYSICAL EXAM: General Appearance: Well appearing, alert, in no acute distress, well-hydrated, well nourished.. Skin: Skin color, texture, turgor normal, no suspicious rashes or lesions. Head: Normocephalic, no masses, lesions, tenderness or abnormalities. Eyes: Anicteric sclera. Extraocular movements are intact. . Neck: Supple, no adenopathy no bruits. Lungs: Lungs clear to auscultation. No wheezing, rhonchi, rales. Heart: RRR without murmur, gallop, or rubs. No ectopy. Extremities: Left lower extremity with redness and increased warmth. No drainage. No streaking. Neurologic: Gait normal. ASSESSMENT/PLAN: 1. Cellulitis of skin - ICD9: 682.9, ICD10: L03.90 (primary diagnosis) - Begin treatment with Doxy Discussed red flag symptoms. - DOXYCYCLINE MONOHYDRATE 100 MG CAPSULE Recheck in 2 weeks. 2. Cough - ICD9: 786.2, ICD10: R05 Requests refill: - BENZONATATE 100 MG CAPSULE 3. Chronic systolic CHF (congestive heart failure) (HCC) - ICD9: 428.22, 428.0, ICD10: I50.22 Requests refill: - SPIRONOLACTONE 25 MG TABLET 4. Screening for hyperlipidemia - ICD9: V77.91, ICD10: Z13.220 Labs today: - LIPID PANEL, NONFASTING - COMP METABOLIC PANEL 5. Controlled type 2 diabetes mellitus without complication, without long-term current use of insulin (HCC) - ICD9: 250.00, ICD10: E11.9 Controlled, but updated labs pending. - Continue current medications - HGB A1C - LIPID PANEL, NONFASTING 6. Vitamin D deficiency - ICD9: 268.9, ICD10: E55.9 Pt reports managed by ND. - CHOLECALCIFEROL (VITAMIN D3) 5,000 UNIT CAPSULE 7. LEDA (obstructive sleep apnea) - ICD9: 327.23, ICD10: G47.33 Needs new mask. - COMPOUNDED PRESCRIPTION Discussed treatment plan and patient voices understanding. Patient's questions answered appropriately. Medications and potential side effects were discussed and patient voices understanding. Return to the office as scheduled or as needed for worsening/no improvement. Khadra Muniz APRN.CNP CNOV Observed: 05/12/2018 Status: COMPLETED Source: [place] 11:00 AM [facility] REPOSITORY Office Visit (FAMPWS) IVELISSE CAPONE ([id number]) 1950 M [facility] Date Time Provider Department 05/12/18 11:00 AM KHADRA MUNIZ (HALEY) FAMPWS During your visit today, we recorded the following information about you: Temperature Pulse Respiration Blood pressure 98.1 degrees 72/minute 14/minute 120/68 Weight 152.8 kg Khadra Muniz APRN.CNP 05/12/2018 12:10 PM Signed This is a 68 year old male who presents today with: Patient presents with: Recheck: recheck leg- left leg HISTORY OF PRESENT ILLNESS: Ivelisse Capone is a 68 year old male. Patient presents with: Recheck: recheck leg- left leg Worsening leg redness for the last week. Frequent infections/cellulitis. No pain. Increased warmth. No fever/chills. Due for labwork today. Refers that he needs a new cpap mask. His is several years old and with poor fit. [facility] He reports that he had his diabetic eye exam through them. Chronic anticoagulation. No s/s of bleeding. PAST MEDICAL HISTORY: PAST MEDICAL HISTORY Diagnosis Date - A-fib ([facility]) - BPH (benign prostatic hyperplasia) - DVT (deep venous thrombosis) ([facility]) December 2009 L popliteal vein - Dysfibrinogenemia ([facility]) Dx 2007 - Fibrinogen-fibrin inhibitor disorder ([facility]) Against Fpa- Tx with rituximab Jul 2010 - GERD (gastroesophageal reflux disease) - Hyperthyroidism - Hypofibrinogenemia ([facility]) Dx 2007 - LEDA on CPAP - Pulmonary embolism ([facility]) 2009, Sep - Restless legs syndrome PAST SURGICAL HISTORY Procedure Laterality Date - COLONOSCOPY 2012 - FOOT/TOES SURGERY PROC UNLISTED 95 - PAST SURGICAL HISTORY OF 08/20/15 Right Total Knee replacement, Dr. Medellin - PAST SURGICAL HISTORY OF 11/21/15 Left total knee replacement [facility] - REPAIR OF HYDROCELE 04/2015 - THROAT SURGERY PROCEDURE 97 for sleep anpea - TONSILLECTOMY HX ALLERGIES Patient has no known allergies. MEDICATIONS Current Outpatient Prescriptions: spironolactone (ALDACTONE) 25 mg tablet Take 1 tablet by mouth once daily. metFORMIN (GLUCOPHAGE) 500 mg tablet Take 1 tablet by mouth daily with breakfast. furosemide (LASIX) 40 mg tablet Take 1 tablet by mouth once daily. omeprazole (PRILOSEC) 20 mg capsule Take 20 mg by mouth twice daily. traMADol (ULTRAM) 50 mg tablet Take 50 mg by mouth every 6 hours as needed. rOPINIRole (REQUIP) 2 mg tablet Take 6 mg by mouth daily at bedtime. dextran 70-hypromellose (TEARS NATURALE II) ophthalmic solution Use 1 Drop in the right eye as needed. metHIMazole (TAPAZOLE) 10 mg tablet Take 10 mg by mouth twice daily. fondaparinux (ARIXTRA) 10 mg/0.8 mL syrg Inject 0.8 mL subcutaneously q 24 HR. docusate sodium (COLACE) 100 mg capsule Take 1 capsule by mouth twice daily. (Patient taking differently: Take 100 mg by mouth twice daily as needed.) metoprolol tartrate, short acting, (LOPRESSOR) 50 mg tablet Take 1 tablet by mouth twice daily. hydrOXYzine HCl 25 mg tablet Take 25 mg by mouth three times daily as needed. sildenafil 100 mg tablet Take 100 mg by mouth as needed. benzonatate (TESSALON PERLES) 100 mg capsule Take 1 capsule by mouth three times daily as needed. FOR COUGHING. Cholecalciferol, Vitamin D3, 5,000 unit cap Take 1 capsule by mouth once daily. doxycycline monohydrate (MONODOX) 100 mg capsule Take 1 capsule by mouth twice daily for 10 days. No current facility-administered medications for this visit. 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 Social History Main Topics Smoking status: Never Smoker Smokeless tobacco: Never Used Comment: Parents smoked in childhod home. Has lived with smokers as adult. Alcohol use: No Drug use: No Social History Narrative In current home 11 years, condominium, [place]. Damp basement. No known mold problems. Gas F/A, central A/C. Monthly air filters. 6 cats in home, with master BR access. No birds. EXAM: BP 120/68 (BP Site: Left Arm, BP Position: Sitting, BP Cuff Size: Large Adult) Pulse 72 Temp 36.7 ?C (98.1 ?F) (Left Tympanic) Resp 14 Wt (!) 152.8 kg (336 lb 12.8 oz) BMI 53.55 kg/m? PHYSICAL EXAM: General Appearance: Well appearing, alert, in no acute distress, well-hydrated, well nourished.. Skin: Skin color, texture, turgor normal, no suspicious rashes or lesions. Head: Normocephalic, no masses, lesions, tenderness or abnormalities. Eyes: Anicteric sclera. Extraocular movements are intact. . Neck: Supple, no adenopathy no bruits. Lungs: Lungs clear to auscultation. No wheezing, rhonchi, rales. Heart: RRR without murmur, gallop, or rubs. No ectopy. Extremities: Left lower extremity with redness and increased warmth. No drainage. No streaking. Neurologic: Gait normal. ASSESSMENT/PLAN: 1. Cellulitis of skin - ICD9: 682.9, ICD10: L03.90 (primary diagnosis) - Begin treatment with Doxy Discussed red flag symptoms. - DOXYCYCLINE MONOHYDRATE 100 MG CAPSULE Recheck in 2 weeks. 2. Cough - ICD9: 786.2, ICD10: R05 Requests refill: - BENZONATATE 100 MG CAPSULE 3. Chronic systolic CHF (congestive heart failure) (HCC) - ICD9: 428.22, 428.0, ICD10: I50.22 Requests refill: - SPIRONOLACTONE 25 MG TABLET 4. Screening for hyperlipidemia - ICD9: V77.91, ICD10: Z13.220 Labs today: - LIPID PANEL, NONFASTING - COMP METABOLIC PANEL 5. Controlled type 2 diabetes mellitus without complication, without long-term current use of insulin (HCC) - ICD9: 250.00, ICD10: E11.9 Controlled, but updated labs pending. - Continue current medications - HGB A1C - LIPID PANEL, NONFASTING 6. Vitamin D deficiency - ICD9: 268.9, ICD10: E55.9 Pt reports managed by ND. - CHOLECALCIFEROL (VITAMIN D3) 5,000 UNIT CAPSULE 7. LEDA (obstructive sleep apnea) - ICD9: 327.23, ICD10: G47.33 Needs new mask. - COMPOUNDED PRESCRIPTION Discussed treatment plan and patient voices understanding. Patient's questions answered appropriately. Medications and potential side effects were discussed and patient voices understanding. Return to the office as scheduled or as needed for worsening/no improvement. Khadra Muniz APRN.HALEY Muniz APRN.CNP 05/12/2018 11:43 AM Signed 1. Scripts to pharmacy. 2. Start doxycycline -- one twice daily for 10 days. 3. Labs today. 4. If anything worsens (red streaks/fever/chills/pain) -- to the ER. 5. Script for cpap mask done. 6. Recheck in 2 weeks. Referring Provider: SELF [[id number]] Allergies As of Date: 05/12/2018 (No Known Allergies) Date Reviewed: 05/12/2018 Reviewed by: Karey Das Cma - Fully Assessed Reason for Visit: Recheck [92] Cmt: recheck leg- left leg Primary Visit Diagnosis:Cellulitis of skin [L03.90] Other Visit Diagnoses:Cough [R05] Chronic systolic CHF (congestive heart failure) ([facility]) [I50.22] Screening for hyperlipidemia [Z13.220] Controlled type 2 diabetes mellitus without complication, without long-term current use of insulin (HCC) [E11.9] Vitamin D deficiency [E55.9] LEDA (obstructive sleep apnea) [G47.33] Order(s):spironolactone (ALDACTONE) 25 mg tabletTake 1 tablet by mouth once daily.Disp: 30 tabletRfl: 6 benzonatate (TESSALON PERLES) 100 mg capsuleTake 1 capsule by mouth three times daily as needed. FOR COUGHING.Disp: 90 capsuleRfl: 1 HGB A1C [MHBNR9C] Order #: [id number] FUTURE LIPID PANEL, NONFASTING [SQLIPNF] Order #: [id number] FUTURE COMP METABOLIC PANEL [SQCMP] Order #: [id number] FUTURE Cholecalciferol, Vitamin D3, 5,000 unit capTake 1 capsule by mouth once daily.Disp: Rfl: doxycycline monohydrate (MONODOX) 100 mg capsuleTake 1 capsule by mouth twice daily for 10 days.Disp: 20 capsuleRfl: 0 COMPOUNDED PRESCRIPTIONPlease replace patient's cpap mask.Disp: 1 EachRfl: 0 Prescriptions as of 05/12/2018 Sig: SPIRONOLACTONE 25 MG TABLET Take 1 tablet by mouth once d* METFORMIN 500 MG TABLET Take 1 tablet by mouth daily * FUROSEMIDE 40 MG TABLET Take 1 tablet by mouth once d* OMEPRAZOLE 20 MG CAPSULE,ELSA* Take 20 mg by mouth twice silvino* TRAMADOL 50 MG TABLET Take 50 mg by mouth every 6 h* ROPINIROLE 2 MG TABLET Take 6 mg by mouth daily at b* DEXTRAN 70-HYPROMELLOSE EYE D* Use 1 Drop in the right eye a* METHIMAZOLE 10 MG TABLET Take 10 mg by mouth twice silvino* FONDAPARINUX 10 MG/0.8 ML SUB* Inject 0.8 mL subcutaneously * DOCUSATE SODIUM 100 MG CAPSULE Take 1 capsule by mouth twice* Patient taking differently: Take 100 mg by mouth twice da* METOPROLOL TARTRATE 50 MG TAB* Take 1 tablet by mouth twice * HYDROXYZINE HCL 25 MG TABLET Take 25 mg by mouth three maliha* SILDENAFIL 100 MG TABLET Take 100 mg by mouth as neede* BENZONATATE 100 MG CAPSULE Take 1 capsule by mouth three* CHOLECALCIFEROL (VITAMIN D3) * Take 1 capsule by mouth once * DOXYCYCLINE MONOHYDRATE 100 M* Take 1 capsule by mouth twice* COMPOUNDED PRESCRIPTION Please replace patient's cpap* Problem List As Of Date 05/12/2018 Noted Resolved BPH (benign prostatic hyperplasia) [N40.0] Pulmonary embolism [I26.99] More... Restless legs syndrome [G25.81] Rotator cuff (capsule) sprain [S43.429A] INVALID FOR* Pain in joint, shoulder region [M25.519] INVALID FOR* Pain in joint, lower leg [M25.569] INVALID FOR* Osteoarthrosis, unspecified whether generalized*INVALID FOR* Fibrinogen-fibrin inhibitor disorder (HCC) [D68* More... Edema of both legs [R60.0] INVALID FOR*05/14/2017 SOB (shortness of breath) on exertion [R06.02] INVALID FOR* Venous insufficiency (chronic) (peripheral) [I8*INVALID FOR* A-fib (HCC) [I48.91] INVALID FOR*05/18/2016 Hydrocele [N43.3] INVALID FOR* Paroxysmal atrial fibrillation (HCC) [I48.0] INVALID FOR* Hyperthyroidism [E05.90] INVALID FOR* Hypervolemia [E87.70] INVALID FOR*03/14/2018 Chronic anticoagulation [Z79.01] INVALID FOR* Renal insufficiency [N28.9] INVALID FOR* Obesity, Class III, BMI >= 40 (morbid obesity) *INVALID FOR*03/14/2018 Controlled type 2 diabetes mellitus without com*INVALID FOR* Pain in left hip [M25.552] INVALID FOR* Morbid obesity, unspecified obesity type (HCC) *INVALID FOR* 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 Scripts to pharmacy. 2. Start doxycycline -- one twice daily for 10 days. 3. Labs today. 4. If anything worsens (red streaks/fever/chills/pain) -- to the ER. 5. Script for cpap mask done. 6. Recheck in 2 weeks. Prescriptions ordered this encounter Disp Refills Start End SPIRONOLACTONE 25 MG TABLET 30 t* 6 05/12/2018 Route: ORAL Sig: Take 1 tablet by mouth once daily. BENZONATATE 100 MG CAPSULE 90 c* 1 05/12/2018 Route: ORAL Sig: Take 1 capsule by mouth three times daily as needed. FOR COUGHING. CHOLECALCIFEROL (VITAMIN D3) 5,000 U* 05/12/2018 Class: Med Update Route: ORAL Sig: Take 1 capsule by mouth once daily. DOXYCYCLINE MONOHYDRATE 100 MG CAPSU* 20 c* 0 05/12/2018 05/22/2018 Route: ORAL Sig: Take 1 capsule by mouth twice daily for 10 days. COMPOUNDED PRESCRIPTION 1 Ea* 0 05/12/2018 Class: Print RX Sig: Please replace patient's cpap mask. Medications Discontinued During This Encounter sulfacetamide (BLEPH-10) 10 % ophtha* 1 Durga* 0 03/14/2018 05/12/2018 Route: RIGHT EYE Sig: Use 1 Drop in the right eye four times daily. Disc: Course of therapy completed clindamycin (CLEOCIN) 150 mg capsule 40 c* 0 03/14/2018 05/12/2018 Route: ORAL Sig: Take 1 capsule by mouth four times daily. Disc: Course of therapy completed spironolactone (ALDACTONE) 25 mg tab* 30 t* 6 12/31/2016 05/12/2018 Route: ORAL Sig: Take 1 tablet by mouth once daily. Disc: Reason for discontinue is not on file. Encounter Status:Closed by KHADRA MUNIZ CNP on 05/12/18 PROGRESS Observed: 03/14/2018 Status: COMPLETED Source: [place] 12:05 PM [facility] RE[facility] O ID: [id number] Author: Avinash Willis Service: (none) Author Type: Physician Type: Progress Notes Filed: 03/14/2018 12:26 PM Note Text: Patient presents with: Cellulitis: wants to check left leg may need ATB? Eye Problem: right Orders: time for lab work HPI: Patient presents today for office visit for follow up[facility] Will get a copy of labs. Just had it done. DM: sugars are ok. No hypoglycemic spells. ANTICOAGULATION: Patient is on arixtra for coagulopathy. Length of treatment: indefinite. Bleeding or bruising No. EDEMA:slightly worse today. Laid off of meds for a short time. RLS: stable. HYPERTHYROID: [facility] No changes in energy levels. LEDA:stable. Still using cpap. Complains of right eye redness and soreness. Having some drainage. No fever or chills. No sinus congestion His left leg is more red. Thinks he may have scratched it. MEDICATIONS: Current Outpatient Prescriptions: metFORMIN (GLUCOPHAGE) 500 mg tablet Take 1 tablet by mouth daily with breakfast. furosemide (LASIX) 40 mg tablet Take 1 tablet by mouth once daily. spironolactone (ALDACTONE) 25 mg tablet Take 1 tablet by mouth once daily. omeprazole (PRILOSEC) 20 mg capsule Take 20 mg by mouth twice daily. traMADol (ULTRAM) 50 mg tablet Take 50 mg by mouth every 6 hours as needed. rOPINIRole (REQUIP) 2 mg tablet Take 6 mg by mouth daily at bedtime. dextran 70-hypromellose (TEARS NATURALE II) ophthalmic solution Use 1 Drop in the right eye as needed. metHIMazole (TAPAZOLE) 10 mg tablet Take 10 mg by mouth twice daily. fondaparinux (ARIXTRA) 10 mg/0.8 mL syrg Inject 0.8 mL subcutaneously q 24 HR. docusate sodium (COLACE) 100 mg capsule Take 1 capsule by mouth twice daily. (Patient taking differently: Take 100 mg by mouth twice daily as needed.) metoprolol tartrate, short acting, (LOPRESSOR) 50 mg tablet Take 1 tablet by mouth twice daily. hydrOXYzine HCl 25 mg tablet Take 25 mg by mouth three times daily as needed. sildenafil 100 mg tablet Take 100 mg by mouth as needed. No current facility-administered medications for this visit. 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 Social History Main Topics Smoking status: Never Smoker Smokeless tobacco: Never Used Comment: Parents smoked in childhod home. Has lived with smokers as adult. Alcohol use: No Drug use: No Social History Narrative In current home 11 years, condominium, [place]. Damp basement. No known mold problems. Gas F/A, central A/C. Monthly air filters. 6 cats in home, with master BR access. No birds. Reviewed current medications, allergies, past medical history, surgical history, family history and social history today. REVIEW OF SYSTEMS All other reviewed and negative other than HPI. HEALTH MAINTENANCE: Reviewed health maintenance issues today and recommended the following in detail. DILATED RETINAL EXAM due on 1949 LDL due on 1965 DTAP,TDAP,TD(1 - Tdap) due on 1968 HBA1C due on 11/19/2017 VITALS: BP 112/70 Pulse 80 Temp 36.6 ?C (97.8 ?F) (Tympanic) Resp 14 Wt (!) 148.8 kg (328 lb) BMI 52.15 kg/m? Last 4 Encounter Wt Readings: Date: Wt: 03/14/2018 148.8 kg (328 lb) 07/24/2017 150.1 kg (331 lb) 06/25/2017 153.3 kg (338 lb) 05/20/2017 159.7 kg (352 lb) PHYSICAL EXAMINATION: General appearance: Well appearing, alert, in no acute distress, well-hydrated, well nourished. Head: Normocephalic, no masses, lesions, tenderness or abnormalities Eyes: Anicteric sclera. Pupils are equally round and reactive to light. Extraocular movements are intact. , conjunctiva slightly red Neck: Supple, no adenopathy; thyroid symmetric, normal size, no bruits Lungs: Lungs clear to auscultation. No wheezing, rhonchi, rales Heart: RRR without murmur, gallop, or rubs. No ectopy Abdomen: Normal abdominal exam, Abdomen soft, non-tender. Bowel sounds normal. No masses, organomegaly Extremities: No deformities, clubbing or cyanosis. Good capillary refill. Two plus edema. Left leg shows chronic venous changes. Has redness and warmth. ASSESSMENT/PLAN: 1. Controlled type 2 diabetes mellitus without complication, without long-term current use of insulin (HCC) - ICD9: 250.00, ICD10: E11.9 (primary diagnosis) Controlled. - Bring in labs from [place] 2. Morbid obesity, unspecified obesity type (HCC) - ICD9: 278.01, ICD10: E66.01 - call if any issues. 3. Primary osteoarthritis of left hip - ICD9: 715.15, ICD10: M16.12 4. Renal insufficiency - ICD9: 593.9, ICD10: N28.9 - follow labs. 5. Chronic anticoagulation - ICD9: V58.61, ICD10: Z79.01 - Continue current medications. Notify us if any difficulties are noted. 6. Hyperthyroidism - ICD9: 242.90, ICD10: E05.90 - get labs from [place] 7. Paroxysmal atrial fibrillation (HCC) - ICD9: 427.31, ICD10: I48.0 - call if any changes. 8. Venous insufficiency (chronic) (peripheral) - ICD9: 459.81, ICD10: I87.2 9. Fibrinogen-fibrin inhibitor disorder (HCC) - ICD9: 286.59, ICD10: D68.318 - continue tx. 10. Other pulmonary embolism without acute cor pulmonale, unspecified chronicity (HCC) - ICD9: 415.19, ICD10: I26.99 11. Restless legs syndrome - ICD9: 333.94, ICD10: G25.81 12. Bacterial conjunctivitis - ICD9: 372.39, 041.9, ICD10: H10.9 - see medication orders - course and contagiousness issues discussed, including hand washing. - Instructed to call if high fever, development of periorbital redness or swelling, eye pain, visual changes, concerns or if symptoms persist. - SULFACETAMIDE SODIUM 10 % EYE DROPS 13. Cellulitis of left lower extremity - ICD9: 682.6, ICD10: L03.116 - Begin treatment with Clindamycin - No lymphangetic streaking, this was defined for patient to watch for and to seek medical care immediately if appears - CLINDAMYCIN HCL 150 MG CAPSULE Avinash Willis MD RTO in one week and prn. CNOV Observed: 03/14/2018 Status: COMPLETED Source: [place] 10:40 AM [facility] REPOSITORY Office Visit (FAMPWS) LIBORIOIVELISSE ([id number]) 1950 M [facility] Date Time Provider Department 03/14/18 10:40 AM AVINASH WILLIS FAMPWS During your visit today, we recorded the following information about you: Temperature Pulse Respiration Blood pressure 97.8 degrees 80/minute 14/minute 112/70 Weight 148.8 kg Avinash Willis 03/14/2018 12:26 PM Signed Patient presents with: Cellulitis: wants to check left leg may need ATB? Eye Problem: right Orders: time for lab work HPI: Patient presents today for office visit for follow up. [facility] Will get a copy of labs. Just had it done. DM: sugars are ok. No hypoglycemic spells. ANTICOAGULATION: Patient is on arixtra for coagulopathy. Length of treatment: indefinite. Bleeding or bruising No. EDEMA:slightly worse today. Laid off of meds for a short time. RLS: stable. HYPERTHYROID: [facility]. No changes in energy levels. LEDA:stable. Still using cpap. Complains of right eye redness and soreness. Having some drainage. No fever or chills. No sinus congestion His left leg is more red. Thinks he may have scratched it. MEDICATIONS: Current Outpatient Prescriptions: metFORMIN (GLUCOPHAGE) 500 mg tablet Take 1 tablet by mouth daily with breakfast. furosemide (LASIX) 40 mg tablet Take 1 tablet by mouth once daily. spironolactone (ALDACTONE) 25 mg tablet Take 1 tablet by mouth once daily. omeprazole (PRILOSEC) 20 mg capsule Take 20 mg by mouth twice daily. traMADol (ULTRAM) 50 mg tablet Take 50 mg by mouth every 6 hours as needed. rOPINIRole (REQUIP) 2 mg tablet Take 6 mg by mouth daily at bedtime. dextran 70-hypromellose (TEARS NATURALE II) ophthalmic solution Use 1 Drop in the right eye as needed. metHIMazole (TAPAZOLE) 10 mg tablet Take 10 mg by mouth twice daily. fondaparinux (ARIXTRA) 10 mg/0.8 mL syrg Inject 0.8 mL subcutaneously q 24 HR. docusate sodium (COLACE) 100 mg capsule Take 1 capsule by mouth twice daily. (Patient taking differently: Take 100 mg by mouth twice daily as needed.) metoprolol tartrate, short acting, (LOPRESSOR) 50 mg tablet Take 1 tablet by mouth twice daily. hydrOXYzine HCl 25 mg tablet Take 25 mg by mouth three times daily as needed. sildenafil 100 mg tablet Take 100 mg by mouth as needed. No current facility-administered medications for this visit. 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 Social History Main Topics Smoking status: Never Smoker Smokeless tobacco: Never Used Comment: Parents smoked in childhod home. Has lived with smokers as adult. Alcohol use: No Drug use: No Social History Narrative In current home 11 years, condominium, suburban. Damp basement. No known mold problems. Gas F/A, central A/C. Monthly air filters. 6 cats in home, with master BR access. No birds. Reviewed current medications, allergies, past medical history, surgical history, family history and social history today. REVIEW OF SYSTEMS All other reviewed and negative other than HPI. HEALTH MAINTENANCE: Reviewed health maintenance issues today and recommended the following in detail. DILATED RETINAL EXAM due on 1949 LDL due on 1965 DTAP,TDAP,TD(1 - Tdap) due on 1968 HBA1C due on 11/19/2017 VITALS: BP 112/70 Pulse 80 Temp 36.6 ?C (97.8 ?F) (Tympanic) Resp 14 Wt (!) 148.8 kg (328 lb) BMI 52.15 kg/m? Last 4 Encounter Wt Readings: Date: Wt: 03/14/2018 148.8 kg (328 lb) 07/24/2017 150.1 kg (331 lb) 06/25/2017 153.3 kg (338 lb) 05/20/2017 159.7 kg (352 lb) PHYSICAL EXAMINATION: General appearance: Well appearing, alert, in no acute distress, well-hydrated, well nourished. Head: Normocephalic, no masses, lesions, tenderness or abnormalities Eyes: Anicteric sclera. Pupils are equally round and reactive to light. Extraocular movements are intact. , conjunctiva slightly red Neck: Supple, no adenopathy; thyroid symmetric, normal size, no bruits Lungs: Lungs clear to auscultation. No wheezing, rhonchi, rales Heart: RRR without murmur, gallop, or rubs. No ectopy Abdomen: Normal abdominal exam, Abdomen soft, non-tender. Bowel sounds normal. No masses, organomegaly Extremities: No deformities, clubbing or cyanosis. Good capillary refill. Two plus edema. Left leg shows chronic venous changes. Has redness and warmth. ASSESSMENT/PLAN: 1. Controlled type 2 diabetes mellitus without complication, without long-term current use of insulin (HCC) - ICD9: 250.00, ICD10: E11.9 (primary diagnosis) Controlled. [facility] 2. Morbid obesity, unspecified obesity type (HCC) - ICD9: 278.01, ICD10: E66.01 - call if any issues. 3. Primary osteoarthritis of left hip - ICD9: 715.15, ICD10: M16.12 4. Renal insufficiency - ICD9: 593.9, ICD10: N28.9 - follow labs. 5. Chronic anticoagulation - ICD9: V58.61, ICD10: Z79.01 - Continue current medications. Notify us if any difficulties are noted. 6. Hyperthyroidism - ICD9: 242.90, ICD10: E05.90 - [facility] 7. Paroxysmal atrial fibrillation (HCC) - ICD9: 427.31, ICD10: I48.0 - call if any changes. 8. Venous insufficiency (chronic) (peripheral) - ICD9: 459.81, ICD10: I87.2 9. Fibrinogen-fibrin inhibitor disorder (HCC) - ICD9: 286.59, ICD10: D68.318 - continue tx. 10. Other pulmonary embolism without acute cor pulmonale, unspecified chronicity (HCC) - ICD9: 415.19, ICD10: I26.99 11. Restless legs syndrome - ICD9: 333.94, ICD10: G25.81 12. Bacterial conjunctivitis - ICD9: 372.39, 041.9, ICD10: H10.9 - see medication orders - course and contagiousness issues discussed, including hand washing. - Instructed to call if high fever, development of periorbital redness or swelling, eye pain, visual changes, concerns or if symptoms persist. - SULFACETAMIDE SODIUM 10 % EYE DROPS 13. Cellulitis of left lower extremity - ICD9: 682.6, ICD10: L03.116 - Begin treatment with Clindamycin - No lymphangetic streaking, this was defined for patient to watch for and to seek medical care immediately if appears - CLINDAMYCIN HCL 150 MG CAPSULE Avinash Willis MD RTO in one week and prn. Referring Provider: SELF [200] Allergies As of Date: 03/14/2018 (No Known Allergies) Date Reviewed: 03/14/2018 Reviewed by: Freida Garcia LPN - Fully Assessed Reason for Visit: Cellulitis [488] Cmt: wants to check left leg may need ATB? Eye Problem [43] Cmt: right Orders [681] Cmt: time for lab work Reason For Visit History Recorded Primary Visit Diagnosis:Controlled type 2 diabetes mellitus without complication, without long-term current use of insulin (HCC) [E11.9] Other Visit Diagnoses:Morbid obesity, unspecified obesity type ([facility]) [E66.01] Primary osteoarthritis of left hip [M16.12] Renal insufficiency [N28.9] Chronic anticoagulation [Z79.01] Hyperthyroidism [E05.90] Paroxysmal atrial fibrillation (HCC) [I48.0] Venous insufficiency (chronic) (peripheral) [I87.2] Fibrinogen-fibrin inhibitor disorder (HCC) [D68.318] Other pulmonary embolism without acute cor pulmonale, unspecified chronicity (HCC) [I26.99] Restless legs syndrome [G25.81] Bacterial conjunctivitis [H10.9] Cellulitis of left lower extremity [L03.116] Order(s):sulfacetamide (BLEPH-10) 10 % ophthalmic solutionUse 1 Drop in the right eye four times daily.Disp: 1 BottleRfl: 0 clindamycin 150 mg cap(s) (CLEOCIN)Disp: Rfl: Prescriptions as of 03/14/2018 Sig: SULFACETAMIDE SODIUM 10 % EYE* Use 1 Drop in the right eye f* METFORMIN 500 MG TABLET Take 1 tablet by mouth daily * FUROSEMIDE 40 MG TABLET Take 1 tablet by mouth once d* SPIRONOLACTONE 25 MG TABLET Take 1 tablet by mouth once d* OMEPRAZOLE 20 MG CAPSULE,ELSA* Take 20 mg by mouth twice silvino* TRAMADOL 50 MG TABLET Take 50 mg by mouth every 6 h* ROPINIROLE 2 MG TABLET Take 6 mg by mouth daily at b* DEXTRAN 70-HYPROMELLOSE EYE D* Use 1 Drop in the right eye a* METHIMAZOLE 10 MG TABLET Take 10 mg by mouth twice silvino* FONDAPARINUX 10 MG/0.8 ML SUB* Inject 0.8 mL subcutaneously * DOCUSATE SODIUM 100 MG CAPSULE Take 1 capsule by mouth twice* Patient taking differently: Take 100 mg by mouth twice da* METOPROLOL TARTRATE 50 MG TAB* Take 1 tablet by mouth twice * HYDROXYZINE HCL 25 MG TABLET Take 25 mg by mouth three maliha* SILDENAFIL 100 MG TABLET Take 100 mg by mouth as neede* Problem List As Of Date 03/14/2018 Noted Resolved BPH (benign prostatic hyperplasia) [N40.0] Pulmonary embolism [I26.99] More... Restless legs syndrome [G25.81] Rotator cuff (capsule) sprain [S43.429A] INVALID FOR* Pain in joint, shoulder region [M25.519] INVALID FOR* Pain in joint, lower leg [M25.569] INVALID FOR* Osteoarthrosis, unspecified whether generalized*INVALID FOR* Fibrinogen-fibrin inhibitor disorder (HCC) [D68* More... Edema of both legs [R60.0] INVALID FOR*05/14/2017 SOB (shortness of breath) on exertion [R06.02] INVALID FOR* Venous insufficiency (chronic) (peripheral) [I8*INVALID FOR* A-fib (HCC) [I48.91] INVALID FOR*05/18/2016 Hydrocele [N43.3] INVALID FOR* Paroxysmal atrial fibrillation (HCC) [I48.0] INVALID FOR* Hyperthyroidism [E05.90] INVALID FOR* Hypervolemia [E87.70] INVALID FOR*03/14/2018 Chronic anticoagulation [Z79.01] INVALID FOR* Renal insufficiency [N28.9] INVALID FOR* Obesity, Class III, BMI >= 40 (morbid obesity) *INVALID FOR*03/14/2018 Controlled type 2 diabetes mellitus without com*INVALID FOR* Pain in left hip [M25.552] INVALID FOR* Morbid obesity, unspecified obesity type (HCC) *INVALID FOR* Primary osteoarthritis of left hip [M16.12] INVALID FOR* Prescriptions ordered this encounter Disp Refills Start End SULFACETAMIDE SODIUM 10 % EYE DROPS 1 Durga* 0 03/14/2018 Route: RIGHT EYE Sig: Use 1 Drop in the right eye four times daily. CLINDAMYCIN HCL 150 MG CAPSULE 03/14/2018 Route: ORAL Disposition: Return in about 1 week (around 03/21/2018). Follow-up and Disposition History Recorded Encounter Status:Closed by AVINASH WILLIS MD on 03/14/18 ALLERGIES ALLERGIES DATE TYPE / CODE NAME / CODE REACTION SEVERITY SOURCE 09/27/2018 Drug No Known Unknown [facility] Allergy/416 Allergies/C09938 [facility] 037227(SNOM 0388(RXNORM) Repository ED CT) Drug NO KNOWN [facility] Class/51889 ALLERGIES [address] [place] 1003(SNOMED Repository CT) ENCOUNTERS ENCOUNTERS ADMIT/DISCHARGE ACCOUNT ADMITTING ENCOUNTER LOCATION SOURCE NUMBER CLASS 09/28/2018 [id number] [facility] 09/27/2018 [id number] Ambulatory BMSBuilding:[facility] Repository 09/27/2018/09/28/20 [id number] Agyeponaleena, Ambulatory [place] [facility] ing:PCLynnom: Repository [id number]: 1 09/27/2018 [id number] Agyenava, Ambulatory BMSBuilding:Dorcas James MS.[facility] Repository 09/27/2018 [id number] Agyepong, Ambulatory BMSBuilding:Docras James MS.[facility] Repository 09/20/2018/09/21/20 [id number] Ambulatory [address] Repository 05/12/2018/05/12/20 [id number] Ambulatory [address] Repository 05/12/2018/05/12/20 [id number] Ambulatory [address] Repository 03/14/2018/03/16/20 [id number] Ambulatory [address] Repository PAYERS PAYERS ENCOUNTER GUARANTOR PAYER SUBSCRIBER SOURCE 09/28/2018 IVELISSE Bhatti Primary IVELISSE [id number] Insurance:HUMANA TUTTLEDOB: Community [place], MEDICARE [facility] [id number] [id number]: Number: Repository [id number] () Date:[id number] [address] [place] [phone]: 09/28/2018 Secondary NOT GIVENUNK [place] Insurance:SELF PAY [facility] Number: Effective Repository Date:2018-09-28 09/27/2018 IVELISSE Bhatti Primary IVELISSE [id number] Insurance:HUMANA TUTTLEDOB: Community [place], MEDICARE [facility] [id number] [address]Plx: Number: Repository [id number] (HP) Date:[id number] [address] [place] [phone]: 09/27/2018 Secondary NOT GIVENUNK [place] Insurance:SELF PAY [facility] Number: Effective Repository Date:2018-09-27 09/27/2018 IVELISSE Bhatti Primary IVELISSE [id number] Insurance:HUMANA TUTTLEDOB: Community [place], MEDICARE [facility] [id number] [place] [id number]: Number: Repository [id number] (HP) Date:[id number] [address] [place] [id number]: 09/27/2018 Secondary NOT GIVENUNK [place] Insurance:SELF PAY [facility] Number: Effective Repository Date:2018-09-27 09/27/2018 IVELISSE Bhatti Primary IVELISSE [id number] Insurance:HUMANA TUTTLEDOB: Community [place], [id number] [place] [id number]: Number: Repository [id number] (HP) Date:[id number] [address] [phone]: 09/27/2018 Secondary NOT GIVENUNK [place] Insurance:SELF PAY [facility] Number: Effective Repository Date:2018-09-27 09/27/2018 IVELISSE Bhatti Primary IVELISSE [id number] Insurance:HUMANA TUTTLEDOB: Community [place], MEDICARE [facility] [id number] [id number]: Number: Repository [id number] (HP) Date:8438-13-86MC [address] [place] [phone]: 09/27/2018 Secondary NOT GIVENUNK [place] Insurance:SELF PAY [facility] Number: Effective Repository Date:2018-09-27
== END 2018-09-28 13:10 | disposition home or self-care (01) ==
LOC: ED 18:04 → PCU 21:51
PROVIDERS: Admitting Provider Hospitalist; Emergency Provider Emergency Medicine; Family Provider Family Medicine; PCP Family Medicine; Visit Provider Hospitalist
DX: R07.89 Other chest pain (principal); E66.9 Obesity, unspecified; K21.9 Gastro-esophageal reflux disease without esophagitis; G47.33 Obstructive sleep apnea (adult) (pediatric); I48.2 Chronic atrial fibrillation; E11.22 Type 2 diabetes mellitus with diabetic chronic kidney disease; I12.9 Hypertensive chronic kidney disease with stage 1 through stage 4 chronic kidney disease, or unspecified chronic kidney disease; N18.9 Chronic kidney disease, unspecified; R06.02 Shortness of breath; R60.0 Localized edema; I48.0 Paroxysmal atrial fibrillation; D68.59 Other primary thrombophilia; Z86.718 Personal history of other venous thrombosis and embolism; Z68.42 Body mass index [BMI] 45.0-49.9, adult; Z91.19 Patient's noncompliance with other medical treatment and regimen; Z71.3 Dietary counseling and surveillance; Z79.899 Other long term (current) drug therapy; Z79.84 Long term (current) use of oral hypoglycemic drugs; Z86.711 Personal history of pulmonary embolism; E05.90 Thyrotoxicosis, unspecified without thyrotoxic crisis or storm
CPT/HCPCS: 36415; 71045; 78452; 80048; 80061; 82962; 84484; 85025; 85379; 85610; 85730; 93005; 93017; 96374; 97802; 99218; 99283; A9500; A4216; G0378; J2405; J2785

== ENCOUNTER 2020-03-23 18:21 | Inpatient (IN) | payer MEDICARE, SELFPAY ==
[2018-09-27 22:37] VITALS: BMI 48.6
[2020-03-23] VITALS (7 sets, daily range): BP systolic 123–150; BP diastolic 63–82; PULSE 91–104; RESP 20–26; TEMP 37.1–37.3; O2SAT 88–96; BMI 47.9
[2020-03-23 19:06] LABS: Bedside Glucose > 500 mg/dL (70-110)
--- NOTE | 2020-03-23 19:10 | EKG12_ITS ---
Test Reason : DYSRYTHMIA Blood Pressure : / mmHG Vent. Rate : 097 BPM Atrial Rate : 097 BPM P-R Int : 122 ms QRS Dur : 092 ms QT Int : 346 ms P-R-T Axes : 016 028 033 degrees QTc Int : 439 ms Sinus rhythm with occasional Premature ventricular complexes Otherwise normal ECG Confirmed by DG LEWIS, SHERIF ([id number]), department editor QUYEN DUCKWORTH ([id number] on 03/26/2020 3:15:20 PM Referred By: MICHAELA Confirmed By:SHERIF CONTE MD
--- NOTE | 2020-03-23 19:15 | ED.VIS.GEN ---
History of Present Illness Chief Complaint: Wound Informant: Patient Onset: Weeks - 2 Context: Gradual Onset Timing: Continuous Quality: sore Location: left calf/leg Current Severity: Moderate Maximum Severity: Moderate Worsened by: palpation Relieved by: leaving alone Associated Symptoms: Nausea vomiting all day today Narrative: Patient states he has had worsening wound on his left calf for about 2 weeks, it has been draining, he saw his PCP and he was prescribed an antibiotic for fear of infection, he states he could not afford to fill it until 2 days ago when he started it. He was seen at wound care yesterday, they were concerned about him and dionna some labs, apparently those results came back this morning showing a blood sugar of 700, and he tested abnormal blood in his urine although he is not urinating gross blood. He states he is having more of a urinary issue of getting my penis to come out. He has had some itching there but no pain or urinary retention. He states he did not come to the hospital this morning when they called him because he fell asleep in his car until about 2 hours ago. He has chronic dyspnea with exertion that is relatively mild, he states that has been a little worse in the past 2 or 3 days, no chest pain or palpitations or near syncopal episodes. He denies having any fevers that he knows of. He states the [facility] changed some of his medications 2 or 3 months ago. He does not know what they were or are nor does he know what the antibiotic is that he takes which is a green pill. Patient denies any known exposures to coronavirus-infected patients. He presents during the coronavirus national emergency declaration. Additionally, patient states he was told at the [facility] that he may have borderline diabetes. He was placed on an unknown medication for that, but states it was discontinued sometime ago and he has been on nothing ever since. - Past Medical History (1) Atrial fibrillation Status: Chronic (2) CRF (chronic renal failure) Status: Chronic (3) Clotting disorder Status: Chronic Comment: on Arixstra....had DVT while on Coumadin (4) History of Dotson's esophagus Status: Chronic (5) Hyperthyroidism Status: Chronic Comment: recently diagnosed (6) LEDA (obstructive sleep apnea) Status: Chronic Comment: non-compliant with CPAP (7) Obesity (BMI 30-39.9) Status: Chronic (8) Venous hypertension of both lower extremities Status: Chronic Past Medical History - Allergies and Home Meds Allergies/Adverse Reactions: Allergies No Known Allergies Allergy (Verified 03/23/20 18:26) Primary Care Physician: Dereck Willis MD [Primary Care Provider] - Surgical History: - - foot surgery, uvulectomy? for sleep apnea. Bilateral knee replacement. Smoking Status: Never smoker - Family History Maternal Family History: Reports: Diabetes, Heart Disease, - - mother at 69 with CHF and she had DM Paternal Family History: Reports: Heart Disease - dad at 81 with CHF, - Review of Systems General: Reports: Malaise. Denies: Chills, Fever, Sweats Eyes: Denies: Visual changes - bilaterally, Diplopia ENT: Denies: Bilateral ear pain, Rhinorrhea, Sore throat Cardiovascular: Denies: Chest pain, Palpitations Respiratory: Reports: Dyspnea, Cough - Nonproductive, 8-10 days, Dyspnea on exertion. Denies: Orthopnea, Paroxysmal nocturnal dyspnea Gastrointestinal: Reports: Nausea, Vomiting. Denies: Abdominal pain, Diarrhea, Melena, Hematochezia Genitourinary: Denies: Dysuria, Hematuria, Frequency Musculoskeletal: Reports: Swelling - Chronic bilateral lower extremities, Extremity Pain. Denies: Myalgias, Neck pain Skin: Reports: Rash - Bilateral lower extremities wounds, Wounds Neurological: Denies: Headache, Weakness, Numbness Physical Exam Vital Signs/Narrative: Vital Signs Temp Pulse Resp BP Pulse Ox 03/23/20 18:23 98.7 F 104 H 20 H 150/82 H 91 Inital Vital Signs reviewed: Yes General: Well nourished, Well developed, Obese - Morbidly, No Acute Distress Head: Normocephalic, Atraumatic Eyes: Perrl, EOMI ENT: Moist mucous membranes, No rhinorrhea Neck: Supple, Nontender, No lymphadenopathy, No JVD Cardiovascular: Regular rate, Regular rhythm, No murmurs, Tachycardia - Mild Respiratory: No distress, CTA bilaterally, Chest nontender Abdomen: Soft, Nontender, Nondistended, Normal bowel sounds Back: Nontender, Normal Inspection Extremities: Tenderness - Left calf only, Edema - 3+ bilateral lower extremities to thighs, with signs of venous stasis both lower legs, Calf Tenderness - Left, where there is a superficial broad-based wound that is oozing yellow fluid. No abscess or purulent discharge. Skin: Normal color, No Trauma, Rash - Dark discoloration venous stasis dermatitis both lower legs, - - Left calf wound superficial without abscess. Also punctate wound anterior left lower leg with yellow nonpurulent discharge, nontender and non-ulcerated Neurological: Alert, Oriented x3, Cranial nerves II-XII grossly intact, Normal Strength, Normal Sensation Psychological: Normal affect, Normal Mood Diagnostic/Tx/Re-eval Impressions Chest X-Ray 03/23/20 19:45 IMPRESSION: No acute thoracic pathology. Electronically Signed: Bryant Catherine, at 20:22 EDT Tel , Service support , Tibia/Fibula X-Ray 03/23/20 19:45 IMPRESSION: Status post left knee arthroplasty. No fracture or dislocation in the left tibia or fibula. Soft tissue swelling. Electronically Signed: Bryant Alexander, at 20:22 EDT Tel , Service support , 03/23/20 19:45 Chest 1 View (Portable) [RAD] Stat Tibia & Fibula 2 Views [RAD] Stat Laboratory Results 03/23/20 03/23/20 03/23/20 18:43 18:45 18:45 WBC 10.9 RBC 4.52 L Hgb 13.5 Hct 40.6 MCV 89.8 MCH 29.9 MCHC 33.3 RDW Std Deviation 43.1 RDW Coeff of Sree 13.2 Plt Count 228 MPV 9.0 Immature Gran % (Auto) 0.400 Neut % (Auto) 65.0 Lymph % (Auto) 23.4 [place] % (Auto) 9.0 Eos % (Auto) 1.7 Baso % (Auto) 0.5 Absolute Neuts (auto) 7.1 Absolute Lymphs (auto) 2.56 Nucleated RBC % 0 Sodium Potassium Chloride Carbon Dioxide Anion Gap BUN Creatinine Estim Creat Clear Calc Est GFR (MDRD) Af Amer Est GFR (MDRD) Non-Af BUN/Creatinine Ratio Glucose Lactic Acid 2.9 H* Calcium Total Bilirubin AST ALT Alkaline Phosphatase Troponin I Total Protein Albumin Globulin Albumin/Globulin Ratio Lipase POC Glucose > 500 H* 03/23/20 03/23/20 18:45 20:31 WBC RBC Hgb Hct MCV MCH MCHC RDW Std Deviation RDW Coeff of Sree Plt Count MPV Immature Gran % (Auto) Neut % (Auto) Lymph % (Auto) [place] % (Auto) Eos % (Auto) Baso % (Auto) Absolute Neuts (auto) Absolute Lymphs (auto) Nucleated RBC % Sodium 132 L Potassium 4.3 Chloride 95 L Carbon Dioxide 31.0 Anion Gap 6 BUN 30 H Creatinine 1.35 H Estim Creat Clear Calc 50.92 Est GFR (MDRD) Af Amer 67 Est GFR (MDRD) Non-Af 55 L BUN/Creatinine Ratio 22.2 H Glucose 560 H* Lactic Acid Calcium 8.8 Total Bilirubin 0.30 AST 64 H ALT 95 H Alkaline Phosphatase 99 Troponin I < 0.015 Total Protein 7.5 Albumin 2.7 L Globulin 4.8 H Albumin/Globulin Ratio 0.6 L Lipase 339 POC Glucose > 500 H* - Rhythm Strip Rhythm Strip: Sinus Rhythm Rate: 97 Ectopy: PVC(s) - EKG Initial EKG Interpretation: Sinus Rhythm, No Acute Injury Pattern - Medical Decision Making Patient appears to have cellulitis of the posterior aspect of his left lower leg, he was empirically given Zosyn, his blood sugar tested high over 500 so he was given insulin as well as some IV fluids. He remained hemodynamically and clinically stable in the emergency department but given the venous stasis, I suspect that now that he is more ill, that oral antibiotics will not necessarily be adequate to treat this infection in total. Patient is comfortable staying in the hospital discussed with hospitalist for admission to PCU. I do not think he needs intensive care at this time. Additionally, I did discuss with the patient that he does likely have diabetes. ED Disposition - Plan for ED Patient: Disposition: Acute Care [facility] Diagnosis: Cellulitis of left lower leg, Failure of outpatient treatment, Severe sepsis, CRF (chronic renal failure), Hyperglycemia due to type 2 diabetes mellitus Referrals: Dereck Willis MD [Primary Care Provider] -
[2020-03-23] MEDS: Insulin Lispro 100 UNIT/ML INSULN.PEN 10 UNIT SC (19:27)
[2020-03-23] MEDS: Ondansetron 4 MG/2 ML Vial IV (19:27)
[2020-03-23 19:35] LABS: Absolute Lymphocyte Count 2.56 X10^3/uL (0.83-4.51); Absolute Neutrophil Count 7.1 X10^3/uL (2.0-7.7); Basophil# 0.05 X10^3/uL; Basophil% 0.5 % (0-1); Eosinophil# 0.19 X10^3/uL; Eosinophils% 1.7 % (0-5); Hematocrit 40.6 % (40-54); Hemoglobin 13.5 g/dL (13.0-16.5); Lymphocyte # 2.56 X10^3/ul (4.0); Lymphocyte % 23.4 % (19-41); Mean Corp Hgb Conc 33.3 g/dL (32-36); Mean Corpuscular Hgb 29.9 pg (27.0-32.0); Mean Corpuscular Volume 89.8 fL (80-94); Monocyte# 0.98 X10^3/uL; NRBC Flagged by Analyzer 0 % (0-5); Neutrophil # 7.12 X10^3/uL (2.7-7.7); Platelet Count 228 K/mm3 (150-450); RBC Distribution Width CV 13.2 % (11.6-14.6); RBC Distribution Width SD 43.1 fl (35.1-43.9); Red Blood Count 4.52 M/mm3 (4.6-6.2); White Blood Count 10.9 K/mm3 (4.4-11.0)
--- NOTE | 2020-03-23 19:45 | RAD_ITS ---
STUDY: X-RAY - LEFT TIBIA AND FIBULA REASON FOR EXAM: Male, 69 years old. Calf wound. TECHNIQUE: 5 view(s) of the tibia and fibula were obtained. COMPARISON: None. FINDINGS: There is no evidence of fracture or dislocation. The patient is status post left knee arthroplasty. There are no radiodense foreign bodies. There is soft tissue swelling noted. RAD/Tibia & Fibula 2 Views IMPRESSION: Status post left knee arthroplasty. No fracture or dislocation in the left tibia or fibula. Soft tissue swelling. Electronically Signed: Bryant Alexander, at 20:22 EDT Tel , Service support ,
--- NOTE | 2020-03-23 19:45 | RAD_ITS ---
STUDY: X-RAY CHEST REASON FOR EXAM: Male, 69 years old. Shortness of breath TECHNIQUE: Frontal view of the chest COMPARISON: 09/27/2018 FINDINGS: The lungs are clear. There are no pleural effusions. There is no pneumothorax. The heart is normal in size. The visualized osseous structures are within normal limits. RAD/Chest 1 View (Portable) IMPRESSION: No acute thoracic pathology. Electronically Signed: Bryant Alexander, at 20:22 EDT Tel , Service support ,
[2020-03-23 19:51] LABS: ALB/GLOB Ratio 0.6 RATIO (0.9-2.4); AST(SGOT) 64 U/L (15-37); Alanine Aminotransfer ALT/SGPT 95 U/L (16-61); Albumin, Serum 2.7 g/dL (3.2-5.0); Alkaline Phosphatase 99 U/L (45-117); Anion Gap 6 (5-15); BUN 30 mg/dL (7-18); BUN/Creat Ratio 22.2 RATIO (10-20); Calcium,Total 8.8 mg/dL (8.5-10.1); Chloride 95 mmol/L (98-107); Creatinine, Serum 1.35 mg/dL (0.70-1.30); EST Glomerular Filtration Rate 55 mL/min (>60); Est Glom Filt Rate - Afr Amer 67 mL/min (>60); Estimated Creatinine Clearance 50.92 ml/min; Globulin 4.8 g/dL (2.2-4.2); Glucose 560 mg/dL (74-106); Lipase 339 U/L (73-393); Potassium 4.3 mmol/L (3.5-5.1); Protein, Total 7.5 g/dL (6.4-8.2); Sodium Level 132 mmol/L (136-145)
[2020-03-23 19:53] LABS: Lactic Acid 2.9 mmol/L (0.4-1.9)
[2020-03-23 20:40] LABS: Bedside Glucose > 500 mg/dL (70-110)
--- NOTE | 2020-03-23 22:54 | HP.PCM_ITS ---
Problem List (1) Cellulitis of left lower leg Status: Acute (2) Failure of outpatient treatment Status: Acute (3) Severe sepsis Status: Acute (4) Hyperglycemia due to type 2 diabetes mellitus Status: Acute (5) Hyperthyroidism Status: Chronic Comment: recently diagnosed (6) Obesity (BMI 30-39.9) Status: Chronic (7) GERD (gastroesophageal reflux disease) Status: Chronic (8) History of Dotson's esophagus Status: Chronic (9) Atrial fibrillation Status: Chronic (10) Clotting disorder Status: Chronic Comment: on Arixstra....had DVT while on Coumadin (11) CRF (chronic renal failure) Status: Chronic (12) Venous hypertension of both lower extremities Status: Chronic (13) Cellulitis Status: Acute (14) LEDA (obstructive sleep apnea) Status: Chronic Comment: non-compliant with CPAP History of Present Illness Date of Admission: 03/23/20 Chief Complaint: Increase drainage of left leg wound. The patient is a 69 year old M with a significant history of venous stasis; and Afib who presents with increased drainage of right calf and for which he was reportedly sent to the emergency department by wound care doctor. Patient had a prescription for antibiotic which he started late due to affordability. Patient has been coughing for about one week. His cough has actually improved. Previously his cough was productive for copious sputum. However the sputum amount has decreased. He reports the sputum as green. He reports some shortness of breath. Patient reported that in the same week of presentation he went to [facility]. He reported an ultrasound was done and ultrasound showed blood on the top of his penis and blood in his urine. He is scheduled to see a urologist Dr. Armando with the [facility] system. Reportedly his appointment is on 03/26/2020 at 10:30 AM. Also the patient reported that recent blood work showed that his blood glucose was 736. He follows up at the [facility] and report that he is borderline diabetic on metformin. At emergency department his blood glucose on BMP was 560. His lactic acid was 2.9. Past Medical History Past Medical History (Chronic Problems): Chronic Problems Hyperthyroidism (Chronic) recently diagnosed Obesity (BMI 30-39.9) (Chronic) GERD (gastroesophageal reflux disease) (Chronic) History of Dotson's esophagus (Chronic) Atrial fibrillation (Chronic) Clotting disorder (Chronic) on Arixstra....had DVT while on Coumadin CRF (chronic renal failure) (Chronic) Venous hypertension of both lower extremities (Chronic) LEDA (obstructive sleep apnea) (Chronic) non-compliant with CPAP Allergies No Known Allergies Allergy (Verified 03/23/20 18:26) Home Medications: Ambulatory Orders Medication Instructions Recorded Fondaparinux Sodium [Arixtra] 10 mg SQ DAILY 12/21/14 Furosemide [Lasix] 40 mg PO DAILY 12/21/14 HydrOXYzine [Atarax] 50 mg PO QHS 12/21/14 Metoprolol Tartrate [Lopressor 50 mg PO BID 12/21/14 (beta enmanuel)] Pantoprazole Sodium [Protonix] 40 mg PO BID 12/21/14 Metformin HCl 500 mg PO DAILY 09/27/18 Nystatin 1 applic TP DAILY 09/27/18 Ropinirole HCl [Requip] 9 mg PO DAILY 09/27/18 Cephalexin 500 mg PO TID 03/24/20 Metolazone 2.5 mg PO DAILY 03/24/20 Mupirocin 03/24/20 Surgical History: - - foot surgery, uvulectomy? for sleep apnea. Bilateral knee replacement. Psychiatric History: No pertinent psych hx Smoking Status: Never smoker - *Family History Maternal History Items: Diabetes, Heart Disease, - - mother at 69 with CHF and she had DM Paternal History Items: Heart Disease - dad at 81 with CHF, - Review of Systems Constitutional: Denies: Chills, Fever, Weight Change HEENT: Denies: Head Aches, Sinus Congestion, Sinus Drainage Cardiovascular: Denies: Chest Pain, Palpitations Respiratory: Reports: Cough, Shortness of Breath, Sputum production Gastrointestinal: Denies: Abdominal Pain, Nausea, Vomiting Genitourinary: Denies: Dysuria Musculoskeletal: Denies: Joint Pain, Joint Tenderness Skin: Reports: Wounds - Left leg. Denies: Rash Neurological: Denies: Numbness, Tingling, Focal weakness Psychiatric: Denies: Anxiety, Depression, Homicidal Ideations, Suicidal Ideations Hematologic/ Lymphatic: Denies: Easy Bruising, Easy Bleeding VTE Information - Inpt Only VTE Present on Admission: No VTE Mechan Device Prophylaxis: None VTE Pharm Prophylaxis ordered?: No Reason prophylaxis not ordered:: Treatment Not Indicated - Lovenox ordered for history of A. fib. Patient Problems: Active and Suspected Problems Cellulitis of left lower leg (Acute) Failure of outpatient treatment (Acute) Severe sepsis (Acute) Hyperglycemia due to type 2 diabetes mellitus (Acute) - Physical Exam Vitals/I&O's: Vital Signs Temp Pulse Resp BP Pulse Ox 98.9 F 91 24 H 132/67 H 96 03/23/20 22:00 03/23/20 22:00 03/23/20 22:00 03/23/20 22:00 03/23/20 22:00 Oxygen Flow Rate (L/min) 3 Oxygen Delivery Method Venturi Mask Weight: 147.418 kg Body Mass Index (BMI) 47.9 Intake and Output for Last 24 Hours 03/21/20 03/22/20 03/23/20 23:59 23:59 23:59 Intake Total 550 / 550 Balance 550 / 550 General: Alert, Oriented x3, Cooperative HEENT: Atraumatic, PERRLA, EOMI, Normocephalic Neck: Supple, No JVD, Negative Carotid Bruits Lungs: Clear to auscultation, Normal air movement Cardiovascular: Regular rate, Normal S1, Normal S2, No murmurs Abdomen: Bowel Sounds Present, Soft, Non Tender, - - Appears normal size of scrotum. Unable to pull penis out. Extremities: Capillary Refill Less than 3 Seconds, Edema - Bilateral legs, Tenderness - Bilateral have left worse than right. Skin: - - Mild yellowish serous drainage from left calf. Musculoskeletal: No Muscle Wasting Neurological: Cranial nerves II-XII grossly intact Psych/Mental Status: Normal Affect, Appropriate Laboratory Results 03/23/20 18:43: POC Glucose > 500 H* 03/23/20 18:45: WBC 10.9, RBC 4.52 L, Hgb 13.5, Hct 40.6, MCV 89.8, MCH 29.9, MCHC 33.3, RDW Std Deviation 43.1, RDW Coeff of Sree 13.2, Plt Count 228, MPV 9.0, Immature Gran % (Auto) 0.400, Neut % (Auto) 65.0, Lymph % (Auto) 23.4, [place] % (Auto) 9.0, Eos % (Auto) 1.7, Baso % (Auto) 0.5, Absolute Neuts (auto) 7.1, Absolute Lymphs (auto) 2.56, Nucleated RBC % 0 03/23/20 18:45: Lactic Acid 2.9 H* 03/23/20 18:45: Sodium 132 L, Potassium 4.3, Chloride 95 L, Carbon Dioxide 31.0, Anion Gap 6, BUN 30 H, Creatinine 1.35 H, Estim Creat Clear Calc 50.92, Est GFR (MDRD) Af Amer 67, Est GFR (MDRD) Non-Af 55 L, BUN/Creatinine Ratio 22.2 H, Glucose 560 H*, Calcium 8.8, Total Bilirubin 0.30, AST 64 H, ALT 95 H, Alkaline Phosphatase 99, Troponin I < 0.015, Total Protein 7.5, Albumin 2.7 L, Globulin 4.8 H, Albumin/Globulin Ratio 0.6 L, Lipase 339 03/23/20 20:31: POC Glucose > 500 H* Assessment/Plan All Active Problems Cellulitis of left lower leg (Acute) Failure of outpatient treatment (Acute) Severe sepsis (Acute) Hyperglycemia due to type 2 diabetes mellitus (Acute) Cellulitis (Acute) History of DVT (deep vein thrombosis) (Resolved) The patient is a 69 year old M with a significant history of venous stasis; and Afib who presents with increased drainage of right calf; tachycardia; tachypnea and lactic acid of more than 2 consistent with severe sepsis secondary to likely cellulitis. Severe sepsis secondary cellulitis. Heart rate of more than 90 and respiratory rate of more than 20. Lactic acid of 2.9. Of note patient is on home metformin. Received Zosyn in the emergency department. Zosyn continued. We will trend CBC and BMP. Trend lactic acid. Follow blood culture COVID 19 test was done at emergency department. Report was negative. Acute hyperglycemia: Glucose on BMP was 560. Accu-Chek blood glucose read more than 500?2. Will hold home metformin in the setting of acute illness. Will put on basal and correction scale insulin. Will check A1c. Nutrition consult. Abnormal scrotal ultrasound. Patient reports abnormal scrotal ultrasound outpatient. He reports a previous history of hydrocele. Recently his scrotum was swollen but the swelling has gone down. On physical examination his scrotum appeared not to be swollen. Patient to follow-up with urology outpatient. Venostasis Lasix continued. Afib On home for fondaparinux. Reportedly in the past he had clots while on Coumadin. While inpatient order Lovenox. DVT prophylaxis Patient on home fondaparinux for A. fib. Will change to Lovenox while inpatient. Inpatient E&M: 67512 Init Hosp L3
[2020-03-23 23:25] LABS: Reflex Lactate? Y
[2020-03-24] VITALS (13 sets, daily range): BP systolic 118–149; BP diastolic 61–82; PULSE 80–92; RESP 18–22; TEMP 36.6–37.3; O2SAT 91–96; BMI 49.8; BMI 49.9
[2020-03-24 00:37] LABS: Lactic Acid 1.6 mmol/L (0.4-1.9)
[2020-03-24] MEDS: Insulin Lispro 100 UNIT/ML INSULN.PEN SC ×5 (03:53→22:19)
[2020-03-24 04:05] LABS: Bedside Glucose 422 mg/dL (70-110)
[2020-03-24 05:24] LABS: Absolute Lymphocyte Count 2.64 X10^3/uL (0.83-4.51); Absolute Neutrophil Count 5.4 X10^3/uL (2.0-7.7); Basophil# 0.05 X10^3/uL; Basophil% 0.5 % (0-1); Eosinophils% 3.2 % (0-5); Hematocrit 37.2 % (40-54); Hemoglobin 12.4 g/dL (13.0-16.5); Lymphocyte # 2.64 X10^3/ul (4.0); Mean Corp Hgb Conc 33.3 g/dL (32-36); Mean Corpuscular Volume 89.9 fL (80-94); Mean Platelet Vol. 8.8 fl (6.2-12.0); Monocyte# 0.95 X10^3/uL; Monocyte% 10.1 % (0-10); NRBC Flagged by Analyzer 0 % (0-5); Neutrophil # 5.44 X10^3/uL (2.7-7.7); Neutrophil % 57.7 % (47-70); Platelet Count 189 K/mm3 (150-450); RBC Distribution Width CV 13.4 % (11.6-14.6); RBC Distribution Width SD 43.8 fl (35.1-43.9); Red Blood Count 4.14 M/mm3 (4.6-6.2); White Blood Count 9.4 K/mm3 (4.4-11.0)
[2020-03-24 05:37] LABS: Anion Gap 4 (5-15); BUN 25 mg/dL (7-18); BUN/Creat Ratio 23.8 RATIO (10-20); Calcium,Total 8.2 mg/dL (8.5-10.1); Chloride 96 mmol/L (98-107); Creatinine, Serum 1.05 mg/dL (0.70-1.30); EST Glomerular Filtration Rate 74 mL/min (>60); Est Glom Filt Rate - Afr Amer 90 mL/min (>60); Estimated Creatinine Clearance 65.46 ml/min; Glucose 421 mg/dL (74-106); Potassium 4.1 mmol/L (3.5-5.1); Sodium Level 133 mmol/L (136-145)
[2020-03-24 07:05] LABS: Bedside Glucose 390 mg/dL (70-110)
[2020-03-24 07:15] LABS: Hemoglobin A1c 12.6 % (3.8-5.6)
[2020-03-24] MEDS: Furosemide 40 MG Tablet PO (09:56)
[2020-03-24] MEDS: Enoxaparin 150 MG/ML Syringe SC ×2 (09:56→22:18)
[2020-03-24] MEDS: Pantoprazole Sodium 40 MG Tablet PO ×2 (09:56→22:17)
--- NOTE | 2020-03-24 10:25 | PCM.PN.HOSP ---
Patient Problems: Active and Suspected Problems Cellulitis of left lower leg (Acute) Failure of outpatient treatment (Acute) Severe sepsis (Acute) Hyperglycemia due to type 2 diabetes mellitus (Acute) Reason for Visit: Uncontrolled diabetes, severe sepsis secondary to left leg cellulitis with ulcer. Objective: Seen and examined. No fever. Blood pressure is stable. Patient has history of obstructive sleep apnea on CPAP, does not know the pressure. He noticed left leg ulcer about 1 week gotten worse with swelling, pain and increased drainage from left lower leg. As per H&P, patient was also coughing up greenish sputum for about 1 week with mild shortness of breath. Patient had echo, stress test about 8 weeks ago in [facility]. Vitals/I&O's: Vital Signs Temp Pulse Resp BP Pulse Ox 98.2 F 92 18 129/61 H 94 03/24/20 09:00 03/24/20 09:00 03/24/20 09:00 03/24/20 09:00 03/24/20 09:00 Oxygen Flow Rate (L/min) 2 Oxygen Delivery Method Nasal Cannula Weight: 337 lb 11.971 oz Body Mass Index (BMI) 49.8 Intake and Output for Last 24 Hours 03/22/20 03/23/20 03/24/20 23:59 23:59 23:59 Intake Total 550 / 550 52.25 / 52.25 Output Total 625 / 625 Balance 550 / 550 -572.75 / -572.75 General: Alert, Oriented x3, Cooperative HEENT: Atraumatic, PERRLA, EOMI, Normocephalic Neck: Supple, No JVD, Negative Carotid Bruits Lungs: Clear to auscultation, No rhonchi, No wheeze, No rales, Diminished - Air entry diminished in bilateral lung bases Cardiovascular: Regular rate, Regular Rhythm, Normal S1, Normal S2, No murmurs Abdomen: Bowel Sounds Present, Soft, Non Tender, Non-Distended Extremities: Capillary Refill Less than 3 Seconds, Edema - Bilateral lower extremity edema, left more than right. Skin: No rashes, No breakdown, Ulcer/ Wound - There is a wound about 4 cm in the posterior lateral side of left lower leg, most probably venous ulcer/diabetic ulcer. Venous stasis and edema. Venous hypertension. Musculoskeletal: No Tenderness to Palpation of Joints or Extremities, Arthritic Changes - Hammertoes in both feet Neurological: Cranial nerves II-XII grossly intact Psych/Mental Status: Normal Affect, Appropriate Microbiology Past 72 Hours 03/24/20 00:15 Mucosa - Nasopharyngeal Coronavirus COVID-19 PCR - Final Laboratory Results 03/23/20 18:43: POC Glucose > 500 H* 03/23/20 18:45: WBC 10.9, RBC 4.52 L, Hgb 13.5, Hct 40.6, MCV 89.8, MCH 29.9, MCHC 33.3, RDW Std Deviation 43.1, RDW Coeff of Sree 13.2, Plt Count 228, MPV 9.0, Immature Gran % (Auto) 0.400, Neut % (Auto) 65.0, Lymph % (Auto) 23.4, [place] % (Auto) 9.0, Eos % (Auto) 1.7, Baso % (Auto) 0.5, Absolute Neuts (auto) 7.1, Absolute Lymphs (auto) 2.56, Nucleated RBC % 0 03/23/20 18:45: Lactic Acid 2.9 H* 03/23/20 18:45: Sodium 132 L, Potassium 4.3, Chloride 95 L, Carbon Dioxide 31.0, Anion Gap 6, BUN 30 H, Creatinine 1.35 H, Estim Creat Clear Calc 50.92, Est GFR (MDRD) Af Amer 67, Est GFR (MDRD) Non-Af 55 L, BUN/Creatinine Ratio 22.2 H, Glucose 560 H*, Calcium 8.8, Total Bilirubin 0.30, AST 64 H, ALT 95 H, Alkaline Phosphatase 99, Troponin I < 0.015, Total Protein 7.5, Albumin 2.7 L, Globulin 4.8 H, Albumin/Globulin Ratio 0.6 L, Lipase 339 03/23/20 20:31: POC Glucose > 500 H* 03/23/20 23:46: Lactic Acid 1.6 03/24/20 03:48: POC Glucose 422 H 03/24/20 05:00: WBC 9.4, RBC 4.14 L, Hgb 12.4 L, Hct 37.2 L, MCV 89.9, MCH 30.0, MCHC 33.3, RDW Std Deviation 43.8, RDW Coeff of Sree 13.4, Plt Count 189, MPV 8.8, Immature Gran % (Auto) 0.500, Neut % (Auto) 57.7, Lymph % (Auto) 28.0, [place] % (Auto) 10.1 H, Eos % (Auto) 3.2, Baso % (Auto) 0.5, Absolute Neuts (auto) 5.4, Absolute Lymphs (auto) 2.64, Nucleated RBC % 0 03/24/20 05:00: Sodium 133 L, Potassium 4.1, Chloride 96 L, Carbon Dioxide 33.0 H, Anion Gap 4 L, BUN 25 H, Creatinine 1.05, Estim Creat Clear Calc 65.46, Est GFR (MDRD) Af Amer 90, Est GFR (MDRD) Non-Af 74, BUN/Creatinine Ratio 23.8 H, Glucose 421 H, Calcium 8.2 L 03/24/20 05:00: Hemoglobin A1c 12.6 H 03/24/20 06:51: POC Glucose 390 H Current Medications Acetaminophen (Tylenol) 650 mg PO Q6H PRN PRN PRN Reason: Pain Score 1-10/Temp > 100.7 F Dextrose (D50w Syringe) 0 gm IV X1 PRN; Protocol PRN Reason: Hypoglycemia Enoxaparin Sodium (Lovenox) 150 mg SC Q12 [facility] Last Admin: 03/24/20 09:56 Dose: 150 mg Documented by: Furosemide (Lasix) 40 mg PO DAILY [facility] Last Admin: 03/24/20 09:56 Dose: 40 mg Documented by: Glucagon () 1 mg IM .X1 PRN PRN Reason: Hypoglycemia Hydroxyzine Pamoate (Vistaril Pamoate Capsule) 50 mg PO QHS [facility] Piperacillin Sod/Tazobactam (Sod 3.375 gm/ Sodium Chloride) 50 mls @ 12.5 mls/hr IV Q8 [facility] Last Infusion: 03/24/20 10:06 Dose: Infused Documented by: Sodium Chloride () 250 mls @ 15 mls/hr IV .[id number] PRN PRN Reason: Saline Flush Last Infusion: 03/24/20 06:07 Dose: 0 mls/hr Documented by: Sodium Chloride () 250 mls @ 15 mls/hr IV .[id number] PRN PRN Reason: Additional IVPB Infusion Insulin Glargine (Lantus (Bkc)) 20 units SC QHS [facility] Last Admin: 03/24/20 03:54 Dose: 20 units Documented by: Insulin Glargine (Lantus (Bkc)) 20 units SC BREAKFAST [facility] Insulin Human Lispro (Humalog Kwikpen (Bkc)) 0 unit SC ACHS & 3AM [facility]; Protocol Last Admin: 03/24/20 06:52 Dose: 10 units Documented by: Insulin Human Lispro (Humalog Kwikpen (Bkc)) 10 unit SC TIDAC [facility] Melatonin (Melatonin) 3 mg PO QHS PRN PRN PRN Reason: INSOMNIA Metolazone (Zaroxolyn) 2.5 mg PO DAILY [facility] Metoprolol Tartrate (Lopressor (Beta Verónica)) 50 mg PO BID [facility] Ondansetron HCl (Zofran) 4 mg IV Q8H PRN PRN PRN Reason: NAUSEA/VOMITING Pantoprazole Sodium (Protonix) 40 mg PO BID [facility] Last Admin: 03/24/20 09:56 Dose: 40 mg Documented by: Sodium Chloride () 10 - 40 ml IV UD PRN PRN Reason: SALINE FLUSH STROKE Vital Signs/Narrative: Vital Signs Temp Pulse Resp BP Pulse Ox 03/24/20 09:00 98.2 F 92 18 129/61 H 94 03/24/20 07:00 92 03/24/20 06:33 94 Medical Necessity - Tobacco Use Smoking Status: Never smoker Assessment/Plan All Active Problems Cellulitis of left lower leg (Acute) Failure of outpatient treatment (Acute) Severe sepsis (Acute) Hyperglycemia due to type 2 diabetes mellitus (Acute) Cellulitis (Acute) History of DVT (deep vein thrombosis) (Resolved) The patient is 69-year-old with history of diabetes mellitus type 2, uncontrolled, A. fib and venous stasis was admitted with left leg ulcer with purulent drainage, cellulitis and swelling. Patient was found tachycardic, tachypneic, lactic acidosis more than 2 along with hyperglycemia, fingerstick more than 500. 1. Severe sepsis (tachycardia, tachypnea, lactic acidosis ) secondary to left leg ulcer complicated with cellulitis, venous stasis/venous hypertension and uncontrolled hyperglycemia: Patient is on IV Zosyn. Repeat lactic acid normal. MRSA nasal screen ordered. Patient did not had any recent hospital admission or history of MRSA therefore low risk of MRSA. Podiatry consult, discussed with Dr. Stone. Might need wound debridement and culture. COVID-19 test done in ER negative. 2. Diabetes mellitus type 2, with uncontrolled hyperglycemia: Patient on only metformin for diabetic control at home. A1c 12.6. Started on Lantus 20 units subcutaneous twice daily and lispro insulin 10 units 3 times daily AC with sliding scale coverage. Mary discontinued Acute hyperglycemia: Glucose on BMP was 560. Nutrition consult. 3. Hydrocele: Patient has appointment with urologist, Dr. Hunter in [facility] on 03/26/2020 at 10:30 AM. Scrotal swelling is much improved. 4. CKD stage III, bilateral lower extremity venous edema/stasis/venous hypertension along with ulceration left lower leg most probably venous ulcer/complicated with controlled diabetes Lasix continued. On Zaroxolyn continued. Monitor kidney function electrolytes. 5. Chronic Afib On home for fondaparinux. Reportedly in the past he had clots while on Coumadin. On Lovenox during hospital stay. 6. DVT prophylaxis as mentioned above Total time of the visit including total time spent in counseling or coordination of care, (more than 50% of the total time, spent in obtaining medical information from nurses and other ancillary care providers), discussion with datastage consultant, review of labs and imaging is 30 minutes Inpatient E&M: [id number] [facility] L3
--- NOTE | 2020-03-24 10:36 | CON.PCM_ITS ---
Problem List (1) Sepsis Status: Acute (2) Ulcer of left lower extremity with fat layer exposed Status: Acute (3) Venous insufficiency Status: Acute (4) Cellulitis of left lower leg Status: Acute (5) Left leg swelling Status: Chronic Reason for Consult Date of Consultation: 03/24/20 Reason for Consultation: Infected left leg wound and swelling History of Present Illness: The patient is a 69 year old M with multiple comorbidities was seen bedside for a left leg ulcer that is infected. The onset was 1 week ago. He relates he was seen at the wound center and was started on antibiotics. He relates that his pain and weeping drainage has progressively worsened. He was advised by his provider to go to the emergency room for likely admission. He denies trauma. He denies claudication. However, he admits he does not walk a lot. He denies rest paresthesias to his feet. He denies prior history of ulcers. He does report chronic intermittent edema to both legs. Past Medical History Past Medical History (Chronic Problems): Chronic Problems Hyperthyroidism (Chronic) recently diagnosed Obesity (BMI 30-39.9) (Chronic) GERD (gastroesophageal reflux disease) (Chronic) History of Dotson's esophagus (Chronic) Atrial fibrillation (Chronic) Clotting disorder (Chronic) on Arixstra....had DVT while on Coumadin Left leg swelling (Chronic) CRF (chronic renal failure) (Chronic) Venous hypertension of both lower extremities (Chronic) LEDA (obstructive sleep apnea) (Chronic) non-compliant with CPAP Allergies No Known Allergies Allergy (Verified 03/23/20 18:26) Home Medications: Ambulatory Orders Medication Instructions Recorded Fondaparinux Sodium [Arixtra] 10 mg SQ DAILY 12/21/14 Furosemide [Lasix] 40 mg PO DAILY 12/21/14 HydrOXYzine [Atarax] 50 mg PO QHS 12/21/14 Metoprolol Tartrate [Lopressor 50 mg PO BID 12/21/14 (beta verónica)] Pantoprazole Sodium [Protonix] 40 mg PO BID 12/21/14 Metformin HCl 500 mg PO DAILY 09/27/18 Nystatin 1 applic TP DAILY 09/27/18 Ropinirole HCl [Requip] 9 mg PO DAILY 09/27/18 Cephalexin 500 mg PO TID 03/24/20 Metolazone 2.5 mg PO DAILY 03/24/20 Mupirocin 03/24/20 Surgical History: - - foot surgery, uvulectomy? for sleep apnea. Bilateral knee replacement. Psychiatric History: No pertinent psych hx Smoking Status: Never smoker - *Family History Maternal History Items: Diabetes, Heart Disease, - - mother at 69 with CHF and she had DM Paternal History Items: Heart Disease - dad at 81 with CHF, - Review of Systems Constitutional: Denies: Chills, Fever, Fatigue Cardiovascular: Reports: Edema. Denies: Chest Pain, Claudication Respiratory: Reports: Shortness of Breath, Sputum production Gastrointestinal: Denies: Nausea, Vomiting Musculoskeletal: Reports: Leg Pain. Denies: Foot Pain Skin: Reports: Skin Changes, Wounds Neurological: Denies: Numbness, Tingling Patient Problems: Active and Suspected Problems Cellulitis of left lower leg (Acute) Failure of outpatient treatment (Acute) Severe sepsis (Acute) Hyperglycemia due to type 2 diabetes mellitus (Acute) Sepsis (Acute) Ulcer of left lower extremity with fat layer exposed (Acute) Venous insufficiency (Acute) - Physical Exam Vitals/I&O's: Vital Signs Temp Pulse Resp BP Pulse Ox 98.2 F 92 18 129/61 H 94 03/24/20 09:00 03/24/20 09:00 03/24/20 09:00 03/24/20 09:00 03/24/20 09:00 Oxygen Flow Rate (L/min) 2 Oxygen Delivery Method Nasal Cannula Weight: 153.2 kg Body Mass Index (BMI) 49.8 Intake and Output for Last 24 Hours 03/22/20 03/23/20 03/24/20 23:59 23:59 23:59 Intake Total 550 / 550 52.25 / 52.25 Output Total 625 / 625 Balance 550 / 550 -572.75 / -572.75 General: Alert, Oriented x3, Cooperative HEENT: Atraumatic Extremities: No cyanosis, Capillary Refill Less than 3 Seconds, No Calf Tenderness, Diminished Peripheral Pulses - Nonpalpable DP or PT pulse bilateral. Edema is consistent with potential venous insufficiency versus lymphedema. His feet are warm to touch and there is no temperature change compared to the digits to the heel, Edema - Bilateral lower extremity with hyperpigmentation of the skin and induration Skin: Ulcer/ Wound - Skin discontinuity to posterior medial left leg measure 7.2 x 6.9 x 0.1 cm and post debridement 7.3 x 7.0 x 0.1 cm with a pale granular base and interspersed fibrous tissue. There is no deep tissue exposed, bogginess, fluctuance, necrosis or eschar. There is hyperpigmented peripheral skin without rl erythema, calor, streaking, purulence. Musculoskeletal: Tenderness - Ulcer manipulation is painful. Compartments adjacent to the ulcer are soft to palpate and there is no skin tenting Neurological: Sensory exam intact to light touch and pain Psych/Mental Status: Normal Affect, Appropriate Microbiology Past 72 Hours 03/24/20 00:15 Mucosa - Nasopharyngeal Coronavirus COVID-19 PCR - Final Laboratory Results 03/23/20 18:43: POC Glucose > 500 H* 03/23/20 18:45: WBC 10.9, RBC 4.52 L, Hgb 13.5, Hct 40.6, MCV 89.8, MCH 29.9, MCHC 33.3, RDW Std Deviation 43.1, RDW Coeff of Sree 13.2, Plt Count 228, MPV 9.0, Immature Gran % (Auto) 0.400, Neut % (Auto) 65.0, Lymph % (Auto) 23.4, [place] % (Auto) 9.0, Eos % (Auto) 1.7, Baso % (Auto) 0.5, Absolute Neuts (auto) 7.1, Absolute Lymphs (auto) 2.56, Nucleated RBC % 0 03/23/20 18:45: Lactic Acid 2.9 H* 03/23/20 18:45: Sodium 132 L, Potassium 4.3, Chloride 95 L, Carbon Dioxide 31.0, Anion Gap 6, BUN 30 H, Creatinine 1.35 H, Estim Creat Clear Calc 50.92, Est GFR (MDRD) Af Amer 67, Est GFR (MDRD) Non-Af 55 L, BUN/Creatinine Ratio 22.2 H, Glucose 560 H*, Calcium 8.8, Total Bilirubin 0.30, AST 64 H, ALT 95 H, Alkaline Phosphatase 99, Troponin I < 0.015, Total Protein 7.5, Albumin 2.7 L, Globulin 4.8 H, Albumin/Globulin Ratio 0.6 L, Lipase 339 03/23/20 20:31: POC Glucose > 500 H* 03/23/20 23:46: Lactic Acid 1.6 03/24/20 03:48: POC Glucose 422 H 03/24/20 05:00: WBC 9.4, RBC 4.14 L, Hgb 12.4 L, Hct 37.2 L, MCV 89.9, MCH 30.0, MCHC 33.3, RDW Std Deviation 43.8, RDW Coeff of Sree 13.4, Plt Count 189, MPV 8.8, Immature Gran % (Auto) 0.500, Neut % (Auto) 57.7, Lymph % (Auto) 28.0, [place] % (Auto) 10.1 H, Eos % (Auto) 3.2, Baso % (Auto) 0.5, Absolute Neuts (auto) 5.4, Absolute Lymphs (auto) 2.64, Nucleated RBC % 0 03/24/20 05:00: Sodium 133 L, Potassium 4.1, Chloride 96 L, Carbon Dioxide 33.0 H, Anion Gap 4 L, BUN 25 H, Creatinine 1.05, Estim Creat Clear Calc 65.46, Est GFR (MDRD) Af Amer 90, Est GFR (MDRD) Non-Af 74, BUN/Creatinine Ratio 23.8 H, Glucose 421 H, Calcium 8.2 L 03/24/20 05:00: Hemoglobin A1c 12.6 H 03/24/20 06:51: POC Glucose 390 H Current Medications Acetaminophen (Tylenol) 650 mg PO Q6H PRN PRN PRN Reason: Pain Score 1-10/Temp > 100.7 F Dextrose (D50w Syringe) 0 gm IV X1 PRN; Protocol PRN Reason: Hypoglycemia Enoxaparin Sodium (Lovenox) 150 mg SC Q12 [facility] Last Admin: 03/24/20 09:56 Dose: 150 mg Documented by: Furosemide (Lasix) 40 mg PO DAILY [facility] Last Admin: 03/24/20 09:56 Dose: 40 mg Documented by: Glucagon () 1 mg IM .X1 PRN PRN Reason: Hypoglycemia Hydroxyzine Pamoate (Vistaril Pamoate Capsule) 50 mg PO QHS [facility] Piperacillin Sod/Tazobactam (Sod 3.375 gm/ Sodium Chloride) 50 mls @ 12.5 mls/hr IV Q8 [facility] Last Infusion: 03/24/20 10:06 Dose: Infused Documented by: Sodium Chloride () 250 mls @ 15 mls/hr IV .[id number] PRN PRN Reason: Saline Flush Last Infusion: 03/24/20 06:07 Dose: 0 mls/hr Documented by: Sodium Chloride () 250 mls @ 15 mls/hr IV .[id number] PRN PRN Reason: Additional IVPB Infusion Insulin Glargine (Lantus (Bkc)) 20 units SC QHS [facility] Last Admin: 03/24/20 03:54 Dose: 20 units Documented by: Insulin Glargine (Lantus (Bkc)) 20 units SC BREAKFAST [facility] Insulin Human Lispro (Humalog Kwikpen (Bkc)) 0 unit SC ACHS & 3AM [facility]; Protocol Last Admin: 03/24/20 06:52 Dose: 10 units Documented by: Insulin Human Lispro (Humalog Kwikpen (Bkc)) 10 unit SC TIDAC [facility] Melatonin (Melatonin) 3 mg PO QHS PRN PRN PRN Reason: INSOMNIA Metolazone (Zaroxolyn) 2.5 mg PO DAILY [facility] Metoprolol Tartrate (Lopressor (Beta Verónica)) 50 mg PO BID [facility] Ondansetron HCl (Zofran) 4 mg IV Q8H PRN PRN PRN Reason: NAUSEA/VOMITING Pantoprazole Sodium (Protonix) 40 mg PO BID [facility] Last Admin: 03/24/20 09:56 Dose: 40 mg Documented by: Sodium Chloride () 10 - 40 ml IV UD PRN PRN Reason: SALINE FLUSH Assessment/Plan All Active Problems Cellulitis of left lower leg (Acute) Failure of outpatient treatment (Acute) Severe sepsis (Acute) Hyperglycemia due to type 2 diabetes mellitus (Acute) Sepsis (Acute) Ulcer of left lower extremity with fat layer exposed (Acute) Venous insufficiency (Acute) Cellulitis (Acute) History of DVT (deep vein thrombosis) (Resolved) Severe sepsis Left leg ulcer with fat layer exposed, screening for infection source of sepsis is in process Cellulitis left leg Chronic edema bilateral lower extremities Venous insufficiency Peripheral vascular disease comorbidities: obesity, diabetes uncontrolled, (A1C 12.6), hydrocele, CKD stage III, chronic atrial fibrillation I reviewed and discussed his case. He remains afebrile. His white blood cell count is currently not elevated. He is tachycardic and is recently improved. He was hyperglycemic and initially meeting sepsis criteria. Blood cultures are negative. Wound cultures were taken today post debridement and these are pending (aerobic, anaerobic, mrsa pcr). To continue on IV Zosyn at this time. Additional antibiotics for broad-spectrum coverage may be considered pending his culture results. It is noted he is also having a cough history work-up as a potential source of sepsis in addition to the leg. X-ray of the leg was also ordered to work up for any potential injury or evidence of deeper infection. No purulence or abscess was identified on exam today. I recom mend proceeding with wound care and surgical intervention of the leg is not recommended at this time. The ulcer was debrided with a 15 blade scalpel after obtaining verbal consent. This was used to excisionally debride fibrous tissue, devitalized subcutaneous tissue, biofilm, slough. He tolerated this well. Pressure was applied to maintain hemostasis. Saline irrigation was performed. The wound measurements are in the physical exam portion of this note. Adaptic, Betadine soaked gauze, abdominal pad, Kerlix, and Aldair wraps were applied. He was advised to elevate. To avoid laying with direct pressure over the ulcer site. I recommend further venous insufficiency work-up with a venous Doppler with reflux evaluation. This will need to be ordered in outpatient setting. I also recommend noninvasive arterial studies to confirm adequate flow and this order will be placed. To continue to improve glycemic control and nutritional support to optimize healing. Supplement will be ordered. I recommend he follows up with the wound healing center at discharge. Medical management and DVT prophylaxis per primary team is greatly appreciated. Thank you very much for the consultation. Please not hesitate to call if you have any questions. Podiatry team will continue to follow him while in house. Tomeka Stone DPM, [facility] [phone]
--- NOTE | 2020-03-24 11:19 | ART_ITS ---
Reason For Study: ulcer Procedure A bilateral lower extremity continuous wave Doppler with analog waveform analysis,segmental pressures,and ankle brachial indexes without exercise. Left Segmental Pressures Left dorsalis pedis artery = 200mmHg. Left digit = 89 mmHg. The left dorsalis pedis waveforms are triphasic. The left posterior tibial artery waveforms are triphasic. ARMOURED CAR ESCORT is noncompressible. Right Segmental Pressures Right brachial= 125mmHg. Right posterior tibial artery = 173mmHg. Right dorsalis pedis artery = 172mmHg. Right digit = 77 mmHg. The right dorsalis pedis waveforms are triphasic. The right posterior tibial artery waveforms are triphasic. Indices The right ankle brachial index by the dorsalis pedis is 1.38. The right ankle brachial index by the posterior tibial artery is 1.38. The right digital-brachial index is .62. The left ankle brachial index by the dorsalis pedis is 1.6. The left digital-brachial index is .71. ARMOURED CAR ESCORT is noncompressible. Interpretation Summary 1. Elevated SASHA at 1.38 and 1.60. There remains bilateral triphasic flow throughout. DBI 0.62 and 0.71. Ordering Physician: Tomeka Stone Performed By: [facility]
[2020-03-24] MEDS: Insulin Lispro 100 UNIT/ML INSULN.PEN 10 UNIT SC ×2 (11:49→17:01)
[2020-03-24 12:01] LABS: Bedside Glucose 396 mg/dL (70-110)
[2020-03-24] MEDS: Ceftriaxone 1 GM/50 ML BAG IV (12:52)
[2020-03-24 13:47] LABS: M R Staph aureus DNA By PCR Negative (Negative); Probe Check PASS; Specimen Processing Control PASS; Staph aureus DNA By PCR NEGATIVE (Negative)
[2020-03-24] MEDS: Acetaminophen 325 MG Tablet 650 MG PO ×2 (16:58→23:00)
[2020-03-24 17:10] LABS: Bedside Glucose 322 mg/dL (70-110)
[2020-03-24] MEDS: Pramipexole Di-HCl 0.5 MG Tablet 1.5 MG PO ×2 (19:32→22:17)
[2020-03-24] MEDS: Nystatin Ointment 1 APPLIC TOPICAL (22:17)
[2020-03-24] MEDS: Metoprolol Tartrate 50 MG Tablet PO (22:18)
[2020-03-24] MEDS: hydrOXYzine PAM 25 MG Capsule 50 MG PO (22:18)
[2020-03-24 22:31] LABS: Bedside Glucose 318 mg/dL (70-110)
[2020-03-25] VITALS (12 sets, daily range): BP systolic 127–143; BP diastolic 58–77; PULSE 68–88; RESP 16–18; TEMP 36.8–36.9; O2SAT 93–95
[2020-03-25 02:36] LABS: Bedside Glucose 374 mg/dL (70-110)
[2020-03-25] MEDS: Insulin Lispro 100 UNIT/ML INSULN.PEN SC ×5 (02:47→21:59)
--- NOTE | 2020-03-25 05:21 | EKG12_ITS ---
Test Reason : DYSRHYTMIA Blood Pressure : / mmHG Vent. Rate : 079 BPM Atrial Rate : 079 BPM P-R Int : 142 ms QRS Dur : 094 ms QT Int : 376 ms P-R-T Axes : 051 037 035 degrees QTc Int : 431 ms Normal sinus rhythm Normal ECG Confirmed by CALLUM LEWIS, SUNIL ([id number]), photography editor QUYEN DUCKWORTH ([id number]) on 03/28/2020 3:06:47 PM Referred By: AYAN Confirmed By:SUNIL NOLEN MD
[2020-03-25 06:31] LABS: ALB/GLOB Ratio 0.5 RATIO (0.9-2.4); AST(SGOT) 23 U/L (15-37); Alanine Aminotransfer ALT/SGPT 59 U/L (16-61); Albumin, Serum 2.4 g/dL (3.2-5.0); Alkaline Phosphatase 84 U/L (45-117); Anion Gap 3 (5-15); BUN 24 mg/dL (7-18); BUN/Creat Ratio 25.1 RATIO (10-20); Calcium,Total 8.3 mg/dL (8.5-10.1); Chloride 98 mmol/L (98-107); Creatinine, Serum 0.96 mg/dL (0.70-1.30); EST Glomerular Filtration Rate 83 mL/min (>60); Est Glom Filt Rate - Afr Amer 100 mL/min (>60); Globulin 4.4 g/dL (2.2-4.2); Glucose 274 mg/dL (74-106); Magnesium 2.4 mg/dL (1.6-2.6); Potassium 3.9 mmol/L (3.5-5.1); Protein, Total 6.8 g/dL (6.4-8.2); Sodium Level 136 mmol/L (136-145)
[2020-03-25] MEDS: Insulin Lispro 100 UNIT/ML INSULN.PEN 10 UNIT SC ×3 (07:42→16:40)
[2020-03-25] MEDS: Acetaminophen 325 MG Tablet 650 MG PO ×2 (07:44→15:40)
[2020-03-25 07:56] LABS: Bedside Glucose 264 mg/dL (70-110)
[2020-03-25] MEDS: Furosemide 40 MG Tablet PO (09:26)
[2020-03-25] MEDS: Pantoprazole Sodium 40 MG Tablet PO ×2 (09:26→22:02)
[2020-03-25] MEDS: Metoprolol Tartrate 50 MG Tablet PO ×2 (09:26→22:02)
[2020-03-25] MEDS: Metolazone 2.5 MG Tablet PO (09:26)
[2020-03-25] MEDS: Enoxaparin 150 MG/ML Syringe SC ×2 (09:27→22:01)
[2020-03-25] MEDS: Ceftriaxone 1 GM/50 ML BAG IV (09:28)
[2020-03-25] MEDS: Nystatin Ointment 1 APPLIC TOPICAL ×2 (09:31→22:02)
--- NOTE | 2020-03-25 10:13 | PCM.PROGNOTE ---
Patient Problems: Active and Suspected Problems Cellulitis of left lower leg (Acute) Failure of outpatient treatment (Acute) Severe sepsis (Acute) Hyperglycemia due to type 2 diabetes mellitus (Acute) Sepsis (Acute) Ulcer of left lower extremity with fat layer exposed (Acute) Venous insufficiency (Acute) Subjective: This 69-year-old male with multiple comorbidities seen bedside for infected left leg ulcer likely the source of his septic status. He is since stabilized. He has continued pain to his left leg but this is decreasing since yesterday. He denies fever, chill, nausea, vomiting. - Physical Exam Vitals/I&O's: Vital Signs Temp Pulse Resp BP Pulse Ox 98.4 F 83 16 143/70 H 94 03/25/20 08:53 03/25/20 09:26 03/25/20 08:53 03/25/20 09:26 03/25/20 08:53 Oxygen Flow Rate (L/min) 2 Oxygen Delivery Method Nasal Cannula Weight: 153.2 kg Body Mass Index (BMI) 49.8 Intake and Output for Last 24 Hours 03/23/20 03/24/20 03/25/20 23:59 23:59 23:59 Intake Total 550 / 550 1302.25 / 1302.25 50 / 50 Output Total 2100 / 2100 Balance 550 / 550 -797.75 / -797.75 50 / 50 General: Alert, Oriented x3, Cooperative Extremities: No cyanosis, Capillary Refill Less than 3 Seconds, No Calf Tenderness - negative hough sign left, Diminished Peripheral Pulses, Edema Skin: Ulcer/ Wound - The ulcer to the posterior left leg has increased granulation tissue and reduced fibrous tissue. There is decreased edema noted with apparent skin line wrinkles. There is decreased intensity and erythema. There is continued chronic hyperpigmentation. There is no bogginess or fluctuance on palpation, purulence on expression, streaking, or odor noted. His skin in general is hairless and atrophic Musculoskeletal: Tenderness - Tenderness with ulcer manipulation, - - Active range of motion digits left. Compartments left lower extremity remain soft to palpate Neurological: Sensory exam intact to light touch and pain Psych/Mental Status: Normal Affect, Appropriate Microbiology Past 72 Hours 03/24/20 11:00 Wound Drainage - Aerobic & Anaerobic Swabs Wound Culture - Preliminary GNR lactose geospatial information scientist Gram negative bruno Staphylococcus species 03/24/20 00:15 Mucosa - Nasopharyngeal Coronavirus COVID-19 PCR - Final Laboratory Results 03/24/20 11:00: S.aureus Protein A PCR NEGATIVE, MRSA (PCR) Negative 03/24/20 11:44: POC Glucose 396 H 03/24/20 16:53: POC Glucose 322 H 03/24/20 22:14: POC Glucose 318 H 03/25/20 02:27: POC Glucose 374 H 03/25/20 05:20: Sodium 136, Potassium 3.9, Chloride 98, Carbon Dioxide 35.0 H, Anion Gap 3 L, BUN 24 H, Creatinine 0.96, Estim Creat Clear Calc 71.60, Est GFR (MDRD) Af Amer 100, Est GFR (MDRD) Non-Af 83, BUN/Creatinine Ratio 25.1 H, Glucose 274 H, Calcium 8.3 L, Magnesium 2.4, Total Bilirubin 0.30, AST 23, ALT 59, Alkaline Phosphatase 84, Total Protein 6.8, Albumin 2.4 L, Globulin 4.4 H, Albumin/Globulin Ratio 0.5 L 03/25/20 07:40: POC Glucose 264 H Current Medications Acetaminophen (Tylenol) 650 mg PO Q6H PRN PRN PRN Reason: Pain Score 1-10/Temp > 100.7 F Last Admin: 03/25/20 07:44 Dose: 650 mg Documented by: Dextrose (D50w Syringe) 0 gm IV X1 PRN; Protocol PRN Reason: Hypoglycemia Enoxaparin Sodium (Lovenox) 150 mg SC Q12 [facility] Last Admin: 03/25/20 09:27 Dose: 150 mg Documented by: Furosemide (Lasix) 40 mg PO DAILY [facility] Last Admin: 03/25/20 09:26 Dose: 40 mg Documented by: Glucagon () 1 mg IM .X1 PRN PRN Reason: Hypoglycemia Hydroxyzine Pamoate (Vistaril Pamoate Capsule) 50 mg PO QHS [facility] Last Admin: 03/24/20 22:18 Dose: 50 mg Documented by: Sodium Chloride () 250 mls @ 15 mls/hr IV .[id number] PRN PRN Reason: Saline Flush Last Infusion: 03/24/20 06:07 Dose: 0 mls/hr Documented by: Sodium Chloride () 250 mls @ 15 mls/hr IV .[id number] PRN PRN Reason: Additional IVPB Infusion Ceftriaxone Sodium (Rocephin) 1 gm in 50 mls @ 100 mls/hr IV Q24 [facility] Last Infusion: 03/25/20 10:01 Dose: Infused Documented by: Insulin Glargine (Lantus (Bkc)) 20 units SC QHS [facility] Last Admin: 03/24/20 22:18 Dose: 20 units Documented by: Insulin Glargine (Lantus (Bkc)) 20 units SC BREAKFAST [facility] Last Admin: 03/25/20 07:47 Dose: 20 u Documented by: Insulin Human Lispro (Humalog Kwikpen (Bkc)) 0 unit SC ACHS & 3AM [facility]; Protocol Last Admin: 03/25/20 07:42 Dose: 6 units Documented by: Insulin Human Lispro (Humalog Kwikpen (Bk)) 10 unit SC TIDAC [facility] Last Admin: 03/25/20 07:42 Dose: 10 u Documented by: Melatonin (Melatonin) 3 mg PO QHS PRN PRN PRN Reason: INSOMNIA Metolazone (Zaroxolyn) 2.5 mg PO DAILY [facility] Last Admin: 03/25/20 09:26 Dose: 2.5 mg Documented by: Metoprolol Tartrate (Lopressor (Beta Verónica)) 50 mg PO BID [facility] Last Admin: 03/25/20 09:26 Dose: 50 mg Documented by: Nutritional Formula (Keegan - [place] Flavor) [facility] Last Admin: 03/25/20 07:45 Dose: 1 packet Documented by: Nystatin (Mycostatin) 1 applic TOPICAL BID [facility]; Protocol Last Admin: 03/25/20 09:31 Dose: 1 applicatio Documented by: Ondansetron HCl (Zofran) 4 mg IV Q8H PRN PRN PRN Reason: NAUSEA/VOMITING Pantoprazole Sodium (Protonix) 40 mg PO BID [facility] Last Admin: 03/25/20 09:26 Dose: 40 mg Documented by: Pramipexole Dihydrochloride (Mirapex) 1.5 mg PO DINNER [facility] Last Admin: 03/24/20 19:32 Dose: 1.5 mg Documented by: Pramipexole Dihydrochloride (Mirapex) 1.5 mg PO QHS [facility] Last Admin: 03/24/20 22:17 Dose: 1.5 mg Documented by: Sodium Chloride () 10 - 40 ml IV UD PRN PRN Reason: SALINE FLUSH Medical Necessity - Tobacco Use Smoking Status: Never smoker Assessment/Plan All Active Problems Cellulitis of left lower leg (Acute) Failure of outpatient treatment (Acute) Severe sepsis (Acute) Hyperglycemia due to type 2 diabetes mellitus (Acute) Sepsis (Acute) Ulcer of left lower extremity with fat layer exposed (Acute) Venous insufficiency (Acute) Cellulitis (Acute) History of DVT (deep vein thrombosis) (Resolved) Severe sepsis resolving Left leg ulcer with fat layer exposed with multi-organism growth Cellulitis left leg Chronic edema bilateral lower extremities Venous insufficiency Peripheral vascular disease comorbidities: obesity, diabetes uncontrolled, (A1C 12.6), hydrocele, CKD stage III, chronic atrial fibrillation I reviewed and discussed his case. He remains afebrile. Blood cultures are negative. His leg wound culture is negative for MRSA. Growth includes gram-negative bruno lactose geospatial information scientist, gram-negative rods, staph species. He is on ceftriaxone IV. Leg x-ray was negative for soft tissue emphysema, foreign body, or acute bone or joint injuries. He does have notable edema. The ulcer was cleansed today with saline and a dressing was reapplied. Additional Aldair wrap were applied to help with edema management. He was advised to elevate more today by stacking pillows under his left leg. He is amendable to try this today. Further work-up with venous Doppler with reflux evaluation will be ordered in the outpatient setting. He was advised to avoid laying with direct pressure over the ulcer site. I recommend he follows up with the wound healing center at discharge. Medical management and DVT prophylaxis per primary team is greatly appreciated. He is demonstrating progressive improvement to his left lower extremity compared to yesterday. The podiatry team will continue to follow him while in house. Tomeka Stone DPM, FACFAS [facility] [phone]
--- NOTE | 2020-03-25 11:34 | PCM.PN.HOSP ---
Patient Problems: Active and Suspected Problems Cellulitis of left lower leg (Acute) Failure of outpatient treatment (Acute) Severe sepsis (Acute) Hyperglycemia due to type 2 diabetes mellitus (Acute) Sepsis (Acute) Ulcer of left lower extremity with fat layer exposed (Acute) Venous insufficiency (Acute) Subjective: Doing well, no issues overnight. Pain is improving. Vitals/I&O's: Vital Signs Temp Pulse Resp BP Pulse Ox 98.4 F 83 16 143/70 H 94 03/25/20 08:53 03/25/20 09:26 03/25/20 08:53 03/25/20 09:26 03/25/20 08:53 Oxygen Flow Rate (L/min) 2 Oxygen Delivery Method Nasal Cannula Weight: 337 lb 11.971 oz Body Mass Index (BMI) 49.8 Intake and Output for Last 24 Hours 03/23/20 03/24/20 03/25/20 23:59 23:59 23:59 Intake Total 550 / 550 1302.25 / 1302.25 50 / 50 Output Total 2100 / 2100 Balance 550 / 550 -797.75 / -797.75 50 / 50 General: Alert, Oriented x3, Cooperative, No apparent distress HEENT: Atraumatic, PERRLA, EOMI, Normocephalic Oral: Moist Mucosa Neck: Supple, No JVD Lungs: Clear to auscultation, Normal air movement, No rhonchi, No wheeze, No rales Cardiovascular: Regular rate, Regular Rhythm, Normal S1, Normal S2, No murmurs Abdomen: Soft, Non Tender, Non-Distended, No Hepato-splenomegaly Extremities: No edema, Capillary Refill Less than 3 Seconds Skin: Ulcer/ Wound - 3 to 5 cm 1 in the posterior lateral side of his left lower extremity appears to be the source Neurological: Neuro grossly intact, Sensory exam intact to light touch and pain Psych/Mental Status: Normal Affect, Appropriate Microbiology Past 72 Hours 03/24/20 11:00 Wound Drainage - Aerobic & Anaerobic Swabs Gram Stain - Final 03/24/20 11:00 Wound Drainage - Aerobic & Anaerobic Swabs Wound Culture - Preliminary GNR lactose helmet hat brim cutter Gram negative bruno Staphylococcus species 03/24/20 00:15 Mucosa - Nasopharyngeal Coronavirus COVID-19 PCR - Final Laboratory Results 03/24/20 11:00: S.aureus Protein A PCR NEGATIVE, MRSA (PCR) Negative 03/24/20 11:44: POC Glucose 396 H 03/24/20 16:53: POC Glucose 322 H 03/24/20 22:14: POC Glucose 318 H 03/25/20 02:27: POC Glucose 374 H 03/25/20 05:20: Sodium 136, Potassium 3.9, Chloride 98, Carbon Dioxide 35.0 H, Anion Gap 3 L, BUN 24 H, Creatinine 0.96, Estim Creat Clear Calc 71.60, Est GFR (MDRD) Af Amer 100, Est GFR (MDRD) Non-Af 83, BUN/Creatinine Ratio 25.1 H, Glucose 274 H, Calcium 8.3 L, Magnesium 2.4, Total Bilirubin 0.30, AST 23, ALT 59, Alkaline Phosphatase 84, Total Protein 6.8, Albumin 2.4 L, Globulin 4.4 H, Albumin/Globulin Ratio 0.5 L 03/25/20 07:40: POC Glucose 264 H Current Medications Acetaminophen (Tylenol) 650 mg PO Q6H PRN PRN PRN Reason: Pain Score 1-10/Temp > 100.7 F Last Admin: 03/25/20 07:44 Dose: 650 mg Documented by: Dextrose (D50w Syringe) 0 gm IV X1 PRN; Protocol PRN Reason: Hypoglycemia Enoxaparin Sodium (Lovenox) 150 mg SC Q12 [facility] Last Admin: 03/25/20 09:27 Dose: 150 mg Documented by: Furosemide (Lasix) 40 mg PO DAILY [facility] Last Admin: 03/25/20 09:26 Dose: 40 mg Documented by: Glucagon () 1 mg IM .X1 PRN PRN Reason: Hypoglycemia Hydroxyzine Pamoate (Vistaril Pamoate Capsule) 50 mg PO QHS [facility] Last Admin: 03/24/20 22:18 Dose: 50 mg Documented by: Sodium Chloride () 250 mls @ 15 mls/hr IV .[id number] PRN PRN Reason: Saline Flush Last Infusion: 03/24/20 06:07 Dose: 0 mls/hr Documented by: Sodium Chloride () 250 mls @ 15 mls/hr IV .[id number] PRN PRN Reason: Additional IVPB Infusion Ceftriaxone Sodium (Rocephin) 1 gm in 50 mls @ 100 mls/hr IV Q24 [facility] Last Infusion: 03/25/20 10:01 Dose: Infused Documented by: Insulin Glargine (Lantus (Bkc)) 20 units SC QHS [facility] Last Admin: 03/24/20 22:18 Dose: 20 units Documented by: Insulin Glargine (Lantus (Bkc)) 20 units SC BREAKFAST [facility] Last Admin: 03/25/20 07:47 Dose: 20 u Documented by: Insulin Human Lispro (Humalog Kwikpen (Bkc)) 0 unit SC ACHS & 3AM [facility]; Protocol Last Admin: 03/25/20 07:42 Dose: 6 units Documented by: Insulin Human Lispro (Humalog Kwikpen (Bkc)) 10 unit SC TIDAC [facility] Last Admin: 03/25/20 07:42 Dose: 10 u Documented by: Melatonin (Melatonin) 3 mg PO QHS PRN PRN PRN Reason: INSOMNIA Metolazone (Zaroxolyn) 2.5 mg PO DAILY [facility] Last Admin: 03/25/20 09:26 Dose: 2.5 mg Documented by: Metoprolol Tartrate (Lopressor (Beta Verónica)) 50 mg PO BID [facility] Last Admin: 03/25/20 09:26 Dose: 50 mg Documented by: Nutritional Formula (Keegan - [place] Flavor) [facility] Last Admin: 03/25/20 07:45 Dose: 1 packet Documented by: Nystatin (Mycostatin) 1 applic TOPICAL BID [facility]; Protocol Last Admin: 03/25/20 09:31 Dose: 1 applicatio Documented by: Ondansetron HCl (Zofran) 4 mg IV Q8H PRN PRN PRN Reason: NAUSEA/VOMITING Pantoprazole Sodium (Protonix) 40 mg PO BID [facility] Last Admin: 03/25/20 09:26 Dose: 40 mg Documented by: Pramipexole Dihydrochloride (Mirapex) 1.5 mg PO DINNER [facility] Last Admin: 03/24/20 19:32 Dose: 1.5 mg Documented by: Pramipexole Dihydrochloride (Mirapex) 1.5 mg PO QHS [facility] Last Admin: 03/24/20 22:17 Dose: 1.5 mg Documented by: Sodium Chloride () 10 - 40 ml IV UD PRN PRN Reason: SALINE FLUSH STROKE Vital Signs/Narrative: Vital Signs Temp Pulse Resp BP Pulse Ox 03/25/20 09:26 83 143/70 H 03/25/20 08:53 98.4 F 83 16 143/70 H 94 Medical Necessity - Tobacco Use Smoking Status: Never smoker Assessment/Plan All Active Problems Cellulitis of left lower leg (Acute) Failure of outpatient treatment (Acute) Severe sepsis (Acute) Hyperglycemia due to type 2 diabetes mellitus (Acute) Sepsis (Acute) Ulcer of left lower extremity with fat layer exposed (Acute) Venous insufficiency (Acute) Cellulitis (Acute) History of DVT (deep vein thrombosis) (Resolved) 1. Severe sepsis secondary to left leg ulcer and cellulitis -Wound culture with gram-negative bruno, identification is still pending -He with IV antibiotics, continue with just Rocephin, MRSA is negative -Appreciate podiatry input, no surgical intervention at this time 2. DM 2 uncontrolled/CKD 3 -A1c of 12.6, he is only on metformin at home was started on insulin here -We will continue to monitor and make dosing adjustments -We will resume metformin on discharge as well as insulin -Function has improved, can continue with Zaroxolyn as well as his Lasix 3. Chronic A. fib -He is on fondaparinux at home transition to Lovenox while here -Continue with metoprolol 4. Hydrocele -We will follow-up with urologist in [place] on the , will likely not make it we will need to reschedule 5. GERD -Stable -Continue with PPI DVT: Lovenox Inpatient E&M: [id number] Subs Hosp L2
[2020-03-25 11:55] LABS: Bedside Glucose 306 mg/dL (70-110)
[2020-03-25] MEDS: Pramipexole Di-HCl 0.5 MG Tablet 1.5 MG PO ×2 (16:45→22:02)
[2020-03-25 16:56] LABS: Bedside Glucose 275 mg/dL (70-110)
[2020-03-25] MEDS: hydrOXYzine PAM 25 MG Capsule 50 MG PO (22:03)
[2020-03-25 22:16] LABS: Bedside Glucose 276 mg/dL (70-110)
[2020-03-26] VITALS (14 sets, daily range): BP systolic 115–138; BP diastolic 61–75; PULSE 72–82; RESP 17–20; TEMP 36.8–37; O2SAT 93–98
[2020-03-26] MEDS: 0.9% Saline Lock 10 ML Syringe IV ×2 (00:41→10:10)
[2020-03-26] MEDS: MELATONIN 3 MG TABLET PO (00:41)
[2020-03-26] MEDS: Ondansetron 4 MG/2 ML Vial IV (00:41)
[2020-03-26] MEDS: Insulin Lispro 100 UNIT/ML INSULN.PEN SC ×5 (02:35→21:56)
[2020-03-26 02:41] LABS: Bedside Glucose 278 mg/dL (70-110)
[2020-03-26] MEDS: Acetaminophen 325 MG Tablet 650 MG PO ×3 (03:02→20:26)
[2020-03-26 05:50] LABS: Absolute Lymphocyte Count 3.12 X10^3/uL (0.83-4.51); Absolute Neutrophil Count 5.1 X10^3/uL (2.0-7.7); Basophil# 0.04 X10^3/uL; Basophil% 0.4 % (0-1); Eosinophil# 0.37 X10^3/uL; Eosinophils% 3.9 % (0-5); Hematocrit 41.7 % (40-54); Hemoglobin 13.5 g/dL (13.0-16.5); Lymphocyte # 3.12 X10^3/ul (4.0); Lymphocyte % 32.8 % (19-41); Mean Corp Hgb Conc 32.4 g/dL (32-36); Mean Corpuscular Hgb 29.7 pg (27.0-32.0); Mean Corpuscular Volume 91.9 fL (80-94); Mean Platelet Vol. 8.6 fl (6.2-12.0); Monocyte# 0.89 X10^3/uL; Monocyte% 9.4 % (0-10); NRBC Flagged by Analyzer 0 % (0-5); Neutrophil # 5.05 X10^3/uL (2.7-7.7); Neutrophil % 53.1 % (47-70); Platelet Count 222 K/mm3 (150-450); RBC Distribution Width CV 13.3 % (11.6-14.6); RBC Distribution Width SD 44.5 fl (35.1-43.9); Red Blood Count 4.54 M/mm3 (4.6-6.2); White Blood Count 9.5 K/mm3 (4.4-11.0)
[2020-03-26] MEDS: Insulin Lispro 100 UNIT/ML INSULN.PEN 10 UNIT SC ×2 (08:16→11:08)
[2020-03-26 08:30] LABS: Bedside Glucose 236 mg/dL (70-110)
--- NOTE | 2020-03-26 09:02 | PCA ---
Per patient requests called and cancelled apt on 03/26 at 1030 with his urologist, .
--- NOTE | 2020-03-26 09:27 | NURSING ---
wound photo: left posterior lower leg
[2020-03-26] MEDS: Metoprolol Tartrate 50 MG Tablet PO ×2 (10:08→22:04)
[2020-03-26] MEDS: Furosemide 40 MG Tablet PO (10:08)
[2020-03-26] MEDS: Enoxaparin 150 MG/ML Syringe SC ×2 (10:08→22:04)
[2020-03-26] MEDS: Ceftriaxone 1 GM/50 ML BAG IV (10:09)
[2020-03-26] MEDS: Pantoprazole Sodium 40 MG Tablet PO ×2 (10:09→22:06)
[2020-03-26] MEDS: Nystatin Ointment 1 APPLIC TOPICAL ×2 (10:09→22:06)
[2020-03-26] MEDS: Metolazone 2.5 MG Tablet PO (10:10)
--- NOTE | 2020-03-26 10:56 | CASEMGMT ---
JOHN AUGUST assessment: Face to Face with patient for initial transition planning/care coordination assessment. JOHN AUGUST introduced self and role at [facility], pt voices understanding and consents to assessment at this time. Pt is sitting up in bed in no distress at this time. Pt is A/Ox4 at this time and answers all questions appropriately at this time. Care providers, pharmacy, and demographics verified/updated at this time. Presentation: Sent by wound nurse/PCP for left calf wound, blood in urine, low sat and elev blood sugar Admitting dx: Severe Sepsis PCP: [facility] Specialists: Wound clinic; shikha Armando at [facility] Preferred Pharmacy: [facility] Insurance: [facility] Benef[place]: [facility] Living Will/HPOA: Pt states has LW/HPOA and is aware that they are not on file at [facility] at this time. Pt states his daughter, Tereza Guerrero, is HPOA. LNOK: Tereza Guerrero, daughter/HPOA; Raphael Ratliff, son Living Arrangements: Pt states lives alone in apartment and states no concerns at home at this time. Pt states is independent with ADL's. Transportation: Pt states drives self and states no transportation concerns at this time. DME/HHC: Pt states has the following DME: cane, walker, grab bars, and [facility]ap [facility]. Pt states no need for any further DME at this time. Pt states no hx of HHC or SNF in the past. Pt states no concerns with going home at time of discharge. Pt is retired. Pt states does not smoke or drink ETOH. Pt states no further concerns/needs at this time. CM to follow PT/OT evals and for any further discharge planning/needs. Advised pt to ask for CM if any further questions concerns/needs arise, voices understanding. Pt Goal: Home Plan[place] AUG[place]
[2020-03-26 11:16] LABS: Bedside Glucose 307 mg/dL (70-110)
--- NOTE | 2020-03-26 13:25 | PCM.PN.HOSP ---
Patient Problems: Active and Suspected Problems Cellulitis of left lower leg (Acute) Failure of outpatient treatment (Acute) Severe sepsis (Acute) Hyperglycemia due to type 2 diabetes mellitus (Acute) Sepsis (Acute) Ulcer of left lower extremity with fat layer exposed (Acute) Venous insufficiency (Acute) Subjective: Doing well, no issues overnight Vitals/I&O's: Vital Signs Temp Pulse Resp BP Pulse Ox 98.2 F 82 17 115/61 93 03/26/20 08:00 03/26/20 11:47 03/26/20 08:00 03/26/20 10:08 03/26/20 08:00 Oxygen Flow Rate (L/min) 2 Oxygen Delivery Method Nasal Cannula Weight: 337 lb 11.971 oz Body Mass Index (BMI) 49.8 Intake and Output for Last 24 Hours 03/24/20 03/25/20 03/26/20 23:59 23:59 23:59 Intake Total 1302.25 / 1302.25 1010 / 1010 780 / 780 Output Total 2100 / 2100 1750 / 1750 700 / 700 Balance -797.75 / -797.75 -740 / -740 80 / 80 General: Alert, Oriented x3, Cooperative, No apparent distress HEENT: Atraumatic, PERRLA, EOMI, Normocephalic Oral: Moist Mucosa Neck: Supple, No JVD Lungs: Clear to auscultation, Normal air movement, No rhonchi, No wheeze, No rales Cardiovascular: Regular rate, Regular Rhythm, Normal S1, Normal S2, No murmurs Abdomen: Soft, Non Tender, Non-Distended, No Hepato-splenomegaly Extremities: No edema, Capillary Refill Less than 3 Seconds Skin: Ulcer/ Wound - 3 to 5 cm wound in the posterior lateral side of his left lower extremity appears to be the source Neurological: Neuro grossly intact, Sensory exam intact to light touch and pain Psych/Mental Status: Normal Affect, Appropriate Microbiology Past 72 Hours 03/23/20 18:45 Blood Culture (Wb) #2 - Anticubital Left Blood Culture - Preliminary No growth in 48 hours. 03/23/20 18:50 Blood Culture (Wb) - Right Forearm Blood Culture - Preliminary No growth in 48 hours. 03/24/20 11:00 Wound Drainage - Aerobic & Anaerobic Swabs Gram Stain - Final 03/24/20 11:00 Wound Drainage - Aerobic & Anaerobic Swabs Wound Culture - Preliminary GNR lactose irrigator head Gram negative bruno Staphylococcus species 03/24/20 11:00 Wound Drainage - Aerobic & Anaerobic Swabs Anaerobic Culture - Preliminary Checking for anaerobes, further studies to follow. 03/24/20 00:15 Mucosa - Nasopharyngeal Coronavirus COVID-19 PCR - Final Laboratory Results 03/25/20 16:38: POC Glucose 275 H 03/25/20 21:58: POC Glucose 276 H 03/26/20 02:34: POC Glucose 278 H 03/26/20 05:10: WBC 9.5, RBC 4.54 L, Hgb 13.5, Hct 41.7, MCV 91.9, MCH 29.7, MCHC 32.4, RDW Std Deviation 44.5 H, RDW Coeff of Sree 13.3, Plt Count 222, MPV 8.6, Immature Gran % (Auto) 0.400, Neut % (Auto) 53.1, Lymph % (Auto) 32.8, Door % (Auto) 9.4, Eos % (Auto) 3.9, Baso % (Auto) 0.4, Absolute Neuts (auto) 5.1, Absolute Lymphs (auto) 3.12, Nucleated RBC % 0 03/26/20 08:02: POC Glucose 236 H 03/26/20 11:03: POC Glucose 307 H Current Medications Acetaminophen (Tylenol) 650 mg PO Q6H PRN PRN PRN Reason: Pain Score 1-10/Temp > 100.7 F Last Admin: 03/26/20 10:16 Dose: 650 mg Documented by: Dextrose (D50w Syringe) 0 gm IV X1 PRN; Protocol PRN Reason: Hypoglycemia Enoxaparin Sodium (Lovenox) 150 mg SC Q12 [facility] Last Admin: 03/26/20 10:08 Dose: 150 mg Documented by: Furosemide (Lasix) 40 mg PO DAILY [facility] Last Admin: 03/26/20 10:08 Dose: 40 mg Documented by: Glucagon () 1 mg IM .X1 PRN PRN Reason: Hypoglycemia Hydroxyzine Pamoate (Vistaril Pamoate Capsule) 50 mg PO QHS [facility] Last Admin: 03/25/20 22:03 Dose: 50 mg Documented by: Sodium Chloride () 250 mls @ 15 mls/hr IV .[id number] PRN PRN Reason: Saline Flush Last Infusion: 03/24/20 06:07 Dose: 0 mls/hr Documented by: Sodium Chloride () 250 mls @ 15 mls/hr IV .[id number] PRN PRN Reason: Additional IVPB Infusion Ceftriaxone Sodium (Rocephin) 1 gm in 50 mls @ 100 mls/hr IV Q24 [facility] Last Infusion: 03/26/20 11:00 Dose: Infused Documented by: Insulin Glargine (Lantus (Bkc)) 20 units SC QHS [facility] Last Admin: 03/25/20 22:00 Dose: 20 units Documented by: Insulin Glargine (Lantus (Bkc)) 20 units SC BREAKFAST [facility] Last Admin: 03/26/20 08:17 Dose: 20 u Documented by: Insulin Human Lispro (Humalog Kwikpen (Bkc)) 0 unit SC ACHS & 3AM [facility]; Protocol Last Admin: 03/26/20 11:07 Dose: 6 units Documented by: Insulin Human Lispro (Humalog Kwikpen (Bkc)) 10 unit SC TIDAC [facility] Last Admin: 03/26/20 11:08 Dose: 10 u Documented by: Melatonin (Melatonin) 3 mg PO QHS PRN PRN PRN Reason: INSOMNIA Last Admin: 03/26/20 00:41 Dose: 3 mg Documented by: Metolazone (Zaroxolyn) 2.5 mg PO DAILY [facility] Last Admin: 03/26/20 10:10 Dose: 2.5 mg Documented by: Metoprolol Tartrate (Lopressor (Beta Verónica)) 50 mg PO BID [facility] Last Admin: 03/26/20 10:08 Dose: 50 mg Documented by: Nutritional Formula (Keegan - [place] Flavor) [facility] Last Admin: 03/26/20 08:15 Dose: 1 packet Documented by: Nystatin (Mycostatin) 1 applic TOPICAL BID [facility]; Protocol Last Admin: 03/26/20 10:09 Dose: 1 applicatio Documented by: Ondansetron HCl (Zofran) 4 mg IV Q8H PRN PRN PRN Reason: NAUSEA/VOMITING Last Admin: 03/26/20 00:41 Dose: 4 mg Documented by: Pantoprazole Sodium (Protonix) 40 mg PO BID [facility] Last Admin: 03/26/20 10:09 Dose: 40 mg Documented by: Pramipexole Dihydrochloride (Mirapex) 1.5 mg PO DINNER [facility] Last Admin: 03/25/20 16:45 Dose: 1.5 mg Documented by: Pramipexole Dihydrochloride (Mirapex) 1.5 mg PO QHS [facility] Last Admin: 03/25/20 22:02 Dose: 1.5 mg Documented by: Sodium Chloride () 10 - 40 ml IV UD PRN PRN Reason: SALINE FLUSH Last Admin: 03/26/20 10:10 Dose: 10 ml Documented by: STROKE Vital Signs/Narrative: Vital Signs Pulse BP 03/26/20 11:47 82 03/26/20 10:08 79 115/61 Medical Necessity - Tobacco Use Smoking Status: Never smoker Assessment/Plan All Active Problems Cellulitis of left lower leg (Acute) Failure of outpatient treatment (Acute) Severe sepsis (Acute) Hyperglycemia due to type 2 diabetes mellitus (Acute) Sepsis (Acute) Ulcer of left lower extremity with fat layer exposed (Acute) Venous insufficiency (Acute) Cellulitis (Acute) History of DVT (deep vein thrombosis) (Resolved) 1. Severe sepsis secondary to left leg ulcer and cellulitis -Wound culture with gram-negative bruno, identification is still pending -continue with just Rocephin, MRSA PCR is negative -Appreciate podiatry input, no surgical intervention at this time 2. DM 2 uncontrolled/CKD 3 -A1c of 12.6, he is only on metformin at home was started on insulin here -We will continue to monitor and make dosing adjustments -We will resume metformin on discharge as well as insulin -Renal function has improved, can continue with Zaroxolyn as well as his Lasix 3. Chronic A. fib -He is on fondaparinux at home transition to Lovenox while here -Continue with metoprolol 4. Hydrocele -We will follow-up with urologist in [place] on the , will likely not make it we will need to reschedule 5. GERD -Stable -Continue with PPI DVT: Lovenox Inpatient E&M: [id number] [facility] Hosp L2
--- NOTE | 2020-03-26 15:46 | CASEMGMT ---
Social Work SW met with pt and informed AD are not on file at [facility]. Pt states he is currently working with an environmental attorney to complete new documents and is made aware to bring them to [facility] when they are complete. BAN Collazo
[2020-03-26] MEDS: Insulin Lispro 100 UNIT/ML INSULN.PEN 15 UNIT SC (17:34)
[2020-03-26] MEDS: Pramipexole Di-HCl 0.5 MG Tablet 1.5 MG PO ×2 (17:35→22:05)
[2020-03-26 17:40] LABS: Bedside Glucose 278 mg/dL (70-110)
--- NOTE | 2020-03-26 21:27 | PCM.PROGNOTE ---
Patient Problems: Active and Suspected Problems Cellulitis of left lower leg (Acute) Failure of outpatient treatment (Acute) Severe sepsis (Acute) Hyperglycemia due to type 2 diabetes mellitus (Acute) Sepsis (Acute) Ulcer of left lower extremity with fat layer exposed (Acute) Venous insufficiency (Acute) Subjective: Patient was seen today for follow up on leg ulceration. He has no new complaints. No complaints of fever, chills, nausea or vomiting. He is resting comfortably in bed watching TV. - Physical Exam Vitals/I&O's: Vital Signs Temp Pulse Resp BP Pulse Ox 98.6 F 76 18 138/65 H 97 03/26/20 20:00 03/26/20 20:00 03/26/20 20:00 03/26/20 20:00 03/26/20 20:00 Oxygen Flow Rate (L/min) 2 Oxygen Delivery Method Nasal Cannula Weight: 153.2 kg Body Mass Index (BMI) 49.8 Intake and Output for Last 24 Hours 03/24/20 03/25/20 03/26/20 23:59 23:59 23:59 Intake Total 1302.25 / 1302.25 1010 / 1010 1020 / 1020 Output Total 2100 / 2100 1750 / 1750 975 / 975 Balance -797.75 / -797.75 -740 / -740 45 / 45 General: Alert, Oriented x3, Cooperative, No apparent distress Extremities: Capillary Refill Less than 3 Seconds, - - Reviewed wound photo left leg - superficial wounds noted to the posterior leg, no cellulitis and appear to be viable. Microbiology Past 72 Hours 03/23/20 18:45 Blood Culture (Wb) #2 - Anticubital Left Blood Culture - Preliminary No growth in 48 hours. 03/23/20 18:50 Blood Culture (Wb) - Right Forearm Blood Culture - Preliminary No growth in 48 hours. 03/24/20 11:00 Wound Drainage - Aerobic & Anaerobic Swabs Gram Stain - Final 03/24/20 11:00 Wound Drainage - Aerobic & Anaerobic Swabs Wound Culture - Preliminary GNR lactose graphics manager Gram negative bruno Staphylococcus species 03/24/20 11:00 Wound Drainage - Aerobic & Anaerobic Swabs Anaerobic Culture - Preliminary Checking for anaerobes, further studies to follow. 03/24/20 00:15 Mucosa - Nasopharyngeal Coronavirus COVID-19 PCR - Final Laboratory Results 03/25/20 21:58: POC Glucose 276 H 03/26/20 02:34: POC Glucose 278 H 03/26/20 05:10: WBC 9.5, RBC 4.54 L, Hgb 13.5, Hct 41.7, MCV 91.9, MCH 29.7, MCHC 32.4, RDW Std Deviation 44.5 H, RDW Coeff of Sree 13.3, Plt Count 222, MPV 8.6, Immature Gran % (Auto) 0.400, Neut % (Auto) 53.1, Lymph % (Auto) 32.8, Evans % (Auto) 9.4, Eos % (Auto) 3.9, Baso % (Auto) 0.4, Absolute Neuts (auto) 5.1, Absolute Lymphs (auto) 3.12, Nucleated RBC % 0 03/26/20 08:02: POC Glucose 236 H 03/26/20 11:03: POC Glucose 307 H 03/26/20 17:31: POC Glucose 278 H Current Medications Acetaminophen (Tylenol) 650 mg PO Q6H PRN PRN PRN Reason: Pain Score 1-10/Temp > 100.7 F Last Admin: 03/26/20 20:26 Dose: 650 mg Documented by: Dextrose (D50w Syringe) 0 gm IV X1 PRN; Protocol PRN Reason: Hypoglycemia Enoxaparin Sodium (Lovenox) 150 mg SC Q12 [facility] Last Admin: 03/26/20 10:08 Dose: 150 mg Documented by: Furosemide (Lasix) 40 mg PO DAILY [facility] Last Admin: 03/26/20 10:08 Dose: 40 mg Documented by: Glucagon () 1 mg IM .X1 PRN PRN Reason: Hypoglycemia Hydroxyzine Pamoate (Vistaril Pamoate Capsule) 50 mg PO QHS [facility] Last Admin: 03/25/20 22:03 Dose: 50 mg Documented by: Sodium Chloride () 250 mls @ 15 mls/hr IV .[id number] PRN PRN Reason: Saline Flush Last Infusion: 03/24/20 06:07 Dose: 0 mls/hr Documented by: Sodium Chloride () 250 mls @ 15 mls/hr IV .[id number] PRN PRN Reason: Additional IVPB Infusion Ceftriaxone Sodium (Rocephin) 1 gm in 50 mls @ 100 mls/hr IV Q24 [facility] Last Infusion: 03/26/20 11:00 Dose: Infused Documented by: Insulin Glargine (Lantus (Bkc)) 30 units SC BREAKFAST [facility] Insulin Glargine (Lantus (Bkc)) 30 units SC QHS [facility] Insulin Human Lispro (Humalog Kwikpen (Bkc)) 0 unit SC ACHS & 3AM [facility]; Protocol Last Admin: 03/26/20 17:33 Dose: 6 units Documented by: Insulin Human Lispro (Humalog Kwikpen (Bkc)) 15 unit SC TIDAC [facility] Last Admin: 03/26/20 17:34 Dose: 15 units Documented by: Melatonin (Melatonin) 3 mg PO QHS PRN PRN PRN Reason: INSOMNIA Last Admin: 03/26/20 00:41 Dose: 3 mg Documented by: Metolazone (Zaroxolyn) 2.5 mg PO DAILY [facility] Last Admin: 03/26/20 10:10 Dose: 2.5 mg Documented by: Metoprolol Tartrate (Lopressor (Beta Verónica)) 50 mg PO BID [facility] Last Admin: 03/26/20 10:08 Dose: 50 mg Documented by: Nutritional Formula (Keegan - [place] Flavor) [facility] Last Admin: 03/26/20 17:35 Dose: 1 packet Documented by: Nystatin (Mycostatin) 1 applic TOPICAL BID [facility]; Protocol Last Admin: 03/26/20 10:09 Dose: 1 applicatio Documented by: Ondansetron HCl (Zofran) 4 mg IV Q8H PRN PRN PRN Reason: NAUSEA/VOMITING Last Admin: 03/26/20 00:41 Dose: 4 mg Documented by: Pantoprazole Sodium (Protonix) 40 mg PO BID [facility] Last Admin: 03/26/20 10:09 Dose: 40 mg Documented by: Pramipexole Dihydrochloride (Mirapex) 1.5 mg PO DINNER [facility] Last Admin: 03/26/20 17:35 Dose: 1.5 mg Documented by: Pramipexole Dihydrochloride (Mirapex) 1.5 mg PO QHS [facility] Last Admin: 03/25/20 22:02 Dose: 1.5 mg Documented by: Sodium Chloride () 10 - 40 ml IV UD PRN PRN Reason: SALINE FLUSH Last Admin: 03/26/20 10:10 Dose: 10 ml Documented by: Medical Necessity - Tobacco Use Smoking Status: Never smoker Assessment/Plan All Active Problems Cellulitis of left lower leg (Acute) Failure of outpatient treatment (Acute) Severe sepsis (Acute) Hyperglycemia due to type 2 diabetes mellitus (Acute) Sepsis (Acute) Ulcer of left lower extremity with fat layer exposed (Acute) Venous insufficiency (Acute) Cellulitis (Acute) History of DVT (deep vein thrombosis) (Resolved) Severe sepsis resolving Left leg ulcer with fat layer exposed with multi-organism growth Cellulitis left leg Chronic edema bilateral lower extremities Venous insufficiency Peripheral vascular disease comorbidities: obesity, diabetes uncontrolled, (A1C 12.6), hydrocele, CKD stage III, chronic atrial fibrillation Re-evaluation performed. He remains afebrile. Blood cultures are negative. His leg wound culture is negative for MRSA. Growth includes gram-negative bruno lactose graphics manager, gram-negative rods, staph species - final pending. He is on IV antibiotics, awaiting final culture results. Leg x-ray was negative for soft tissue emphysema, foreign body, or acute bone or joint injuries. Continue with daily dressing changes. Continue to keep legs elevated as much as possible. Further work-up with venous Doppler with reflux evaluation will be ordered in the outpatient setting. He was advised to avoid laying with direct pressure over the ulcer site. Reviewed LEAS, final report pending but does appear to have good arterial flow to foot. I recommend he follows up with the wound healing center at discharge. Medical management and DVT prophylaxis per primary team is greatly appreciated. He is demonstrating progressive improvement to his left lower extremity. Podiatry will see patient while in house q 2-3 days - patient to follow up at wound center upon discharge.
--- NOTE | 2020-03-26 21:33 | PCM.DC.POD ---
Keep extremity elevated above heart level: Left Leg - Keep left foot elevated using pillows as much as possible. Call your doctor if your incision/area has: Continuous Slow Oozing, Sudden Increased Bleeding, Foul Smelling Discharge Cleanse incision/area with: - - Wound care left leg: Cleanse w/ saline solution. Apply adaptic and overlying gauze, kerlix and brad dressing - brad dressing goes from base of the toes to just below the knee - change daily. Allergies/Adverse Reactions: Allergies No Known Allergies Allergy (Verified 03/23/20 18:26) Medications to take at Discharge Fondaparinux Sodium [Arixtra] 10 mg SQ DAILY 12/21/14 Furosemide [Lasix] 40 mg PO DAILY 12/21/14 HydrOXYzine [Atarax] 50 mg PO QHS 12/21/14 Metoprolol Tartrate [Lopressor (beta enmanuel)] 50 mg PO BID 12/21/14 Pantoprazole Sodium [Protonix] 40 mg PO BID 12/21/14 Metformin HCl 500 mg PO DAILY 09/27/18 Nystatin 1 applic TP DAILY 09/27/18 Ropinirole HCl [Requip] 9 mg PO DAILY 09/27/18 Cephalexin 500 mg PO TID 03/24/20 Metolazone 2.5 mg PO DAILY 03/24/20 Mupirocin 03/24/20 Primary Care Physician: Dereck Willis MD [Primary Care Provider] - Test Results: Test results from this visit will be discussed in further detail at your follow-up appointment, if applicable. Please Follow Up With: Tomeka Stone DPM - at [facility] When: 1 week, sooner if needed.
[2020-03-26] MEDS: hydrOXYzine PAM 25 MG Capsule 50 MG PO (22:06)
[2020-03-26 23:11] LABS: Bedside Glucose 292 mg/dL (70-110)
[2020-03-27] VITALS (13 sets, daily range): BP systolic 114–133; BP diastolic 58–89; PULSE 61–85; RESP 16–18; TEMP 36.8–37.1; O2SAT 88–96
[2020-03-27] MEDS: Ondansetron 4 MG/2 ML Vial IV ×2 (00:19→19:54)
[2020-03-27] MEDS: Insulin Lispro 100 UNIT/ML INSULN.PEN SC ×5 (03:12→21:10)
[2020-03-27] MEDS: Acetaminophen 325 MG Tablet 650 MG PO ×3 (03:24→19:54)
[2020-03-27 04:01] LABS: Bedside Glucose 276 mg/dL (70-110)
[2020-03-27 06:25] LABS: Anion Gap 7 (5-15); BUN 29 mg/dL (7-18); BUN/Creat Ratio 26.1 RATIO (10-20); Chloride 93 mmol/L (98-107); Creatinine, Serum 1.11 mg/dL (0.70-1.30); EST Glomerular Filtration Rate 69 mL/min (>60); Est Glom Filt Rate - Afr Amer 84 mL/min (>60); Estimated Creatinine Clearance 61.92 ml/min; Glucose 266 mg/dL (74-106); Potassium 3.6 mmol/L (3.5-5.1); Sodium Level 134 mmol/L (136-145)
[2020-03-27] MEDS: Insulin Lispro 100 UNIT/ML INSULN.PEN 15 UNIT SC ×3 (07:44→17:37)
[2020-03-27 08:00] LABS: Bedside Glucose 263 mg/dL (70-110)
[2020-03-27] MEDS: Enoxaparin 150 MG/ML Syringe SC ×2 (09:23→21:09)
[2020-03-27] MEDS: Furosemide 40 MG Tablet PO (09:23)
[2020-03-27] MEDS: Metoprolol Tartrate 50 MG Tablet PO ×2 (09:23→21:09)
[2020-03-27] MEDS: Metolazone 2.5 MG Tablet PO (09:24)
[2020-03-27] MEDS: Ceftriaxone 1 GM/50 ML BAG IV (09:24)
[2020-03-27] MEDS: Pantoprazole Sodium 40 MG Tablet PO ×2 (09:24→21:09)
[2020-03-27] MEDS: Nystatin Ointment 1 APPLIC TOPICAL ×2 (09:24→21:12)
[2020-03-27] MEDS: 0.9% Saline Lock 10 ML Syringe IV ×3 (09:25→19:54)
[2020-03-27 11:15] LABS: Bedside Glucose 335 mg/dL (70-110)
[2020-03-27] MEDS: levoFLOXacin 750 MG Tablet PO (12:19)
[2020-03-27 17:01] LABS: Bedside Glucose 332 mg/dL (70-110)
[2020-03-27] MEDS: Pramipexole Di-HCl 0.5 MG Tablet 1.5 MG PO ×2 (17:41→21:10)
--- NOTE | 2020-03-27 17:44 | PCM.PN.HOSP ---
Patient Problems: Active and Suspected Problems Cellulitis of left lower leg (Acute) Failure of outpatient treatment (Acute) Severe sepsis (Acute) Hyperglycemia due to type 2 diabetes mellitus (Acute) Sepsis (Acute) Ulcer of left lower extremity with fat layer exposed (Acute) Venous insufficiency (Acute) Subjective: Doing well, no issues overnight. Still needing oxygen but does not feel short of breath Vitals/I&O's: Vital Signs Temp Pulse Resp BP Pulse Ox 98.3 F 74 18 126/89 H 95 03/27/20 15:15 03/27/20 15:15 03/27/20 15:15 03/27/20 15:15 03/27/20 15:15 Oxygen Flow Rate (L/min) [At 0 REST on Room Air] Oxygen Flow Rate (L/min) 2 Oxygen Delivery Method Nasal Cannula Weight: 337 lb 11.971 oz Body Mass Index (BMI) 49.8 Intake and Output for Last 24 Hours 03/25/20 03/26/20 03/27/20 23:59 23:59 23:59 Intake Total 1010 / 1010 1500 / 1500 530 / 530 Output Total 1750 / 1750 975 / 975 925 / 925 Balance -740 / -740 525 / 525 -395 / -395 General: Alert, Oriented x3, Cooperative, No apparent distress HEENT: Atraumatic, PERRLA, EOMI, Normocephalic Oral: Moist Mucosa Neck: Supple, No JVD Lungs: Clear to auscultation, Normal air movement, No rhonchi, No wheeze, No rales Cardiovascular: Regular rate, Regular Rhythm, Normal S1, Normal S2, No murmurs Abdomen: Soft, Non Tender, Non-Distended, No Hepato-splenomegaly Extremities: No edema, Capillary Refill Less than 3 Seconds Skin: Ulcer/ Wound - 3 to 5 cm wound in the posterior lateral side of his left lower extremity appears to be the source Neurological: Neuro grossly intact, Sensory exam intact to light touch and pain Psych/Mental Status: Normal Affect, Appropriate Microbiology Past 72 Hours 03/24/20 11:00 Wound Drainage - Aerobic & Anaerobic Swabs Gram Stain - Final 03/24/20 11:00 Wound Drainage - Aerobic & Anaerobic Swabs Wound Culture - Preliminary Enterobacter cloacae complex Proteus mirabilis Staphylococcus species 03/24/20 11:00 Wound Drainage - Aerobic & Anaerobic Swabs Anaerobic Culture - Final 03/23/20 18:45 Blood Culture (Wb) #2 - Anticubital Left Blood Culture - Preliminary No growth in 48 hours. 03/23/20 18:50 Blood Culture (Wb) - Right Forearm Blood Culture - Preliminary No growth in 48 hours. Laboratory Results 03/26/20 21:53: POC Glucose 292 H 03/27/20 03:11: POC Glucose 276 H 03/27/20 05:32: Sodium 134 L, Potassium 3.6, Chloride 93 L, Carbon Dioxide 34.0 H, Anion Gap 7, BUN 29 H, Creatinine 1.11, Estim Creat Clear Calc 61.92, Est GFR (MDRD) Af Amer 84, Est GFR (MDRD) Non-Af 69, BUN/Creatinine Ratio 26.1 H, Glucose 266 H, Calcium 9.0 03/27/20 07:39: POC Glucose 263 H 03/27/20 11:08: POC Glucose 335 H 03/27/20 16:46: POC Glucose 332 H Current Medications Acetaminophen (Tylenol) 650 mg PO Q6H PRN PRN PRN Reason: Pain Score 1-10/Temp > 100.7 F Last Admin: 03/27/20 09:33 Dose: 650 mg Documented by: Dextrose (D50w Syringe) 0 gm IV X1 PRN; Protocol PRN Reason: Hypoglycemia Enoxaparin Sodium (Lovenox) 150 mg SC Q12 [facility] Last Admin: 03/27/20 09:23 Dose: 150 mg Documented by: Furosemide (Lasix) 40 mg PO DAILY [facility] Last Admin: 03/27/20 09:23 Dose: 40 mg Documented by: Glucagon () 1 mg IM .X1 PRN PRN Reason: Hypoglycemia Hydroxyzine Pamoate (Vistaril Pamoate Capsule) 50 mg PO QHS [facility] Last Admin: 03/26/20 22:06 Dose: 50 mg Documented by: Sodium Chloride () 250 mls @ 15 mls/hr IV .[id number] PRN PRN Reason: Saline Flush Last Infusion: 03/24/20 06:07 Dose: 0 mls/hr Documented by: Sodium Chloride () 250 mls @ 15 mls/hr IV .[id number] PRN PRN Reason: Additional IVPB Infusion Insulin Glargine (Lantus (Bkc)) 30 units SC BREAKFAST [facility] Last Admin: 03/27/20 07:43 Dose: 30 units Documented by: Insulin Glargine (Lantus ([facility])) 30 units SC QHS [facility] Last Admin: 03/26/20 21:58 Dose: 30 u Documented by: Insulin Human Lispro (Humalog Kwikpen ([facility])) 0 unit SC ACHS & 3AM [facility]; Protocol Last Admin: 03/27/20 17:37 Dose: 8 units Documented by: Insulin Human Lispro (Humalog Kwikpen ([facility])) 15 unit SC TIDAC [facility] Last Admin: 03/27/20 17:37 Dose: 15 units Documented by: Levofloxacin (Levaquin Tablet) 750 mg PO DAILY@0600 [facility] Last Admin: 03/27/20 12:19 Dose: 750 mg Documented by: Melatonin (Melatonin) 3 mg PO QHS PRN PRN PRN Reason: INSOMNIA Last Admin: 03/26/20 00:41 Dose: 3 mg Documented by: Metolazone (Zaroxolyn) 2.5 mg PO DAILY [facility] Last Admin: 03/27/20 09:24 Dose: 2.5 mg Documented by: Metoprolol Tartrate (Lopressor (Beta Verónica)) 50 mg PO BID [facility] Last Admin: 03/27/20 09:23 Dose: 50 mg Documented by: Nutritional [facility] (Keegan - Weld [facility] Last Admin: 03/27/20 17:41 Dose: 1 packet Documented by: Nystatin (Mycostatin) 1 applic TOPICAL BID [facility]; Protocol Last Admin: 03/27/20 09:24 Dose: 1 applicatio Documented by: Ondansetron HCl (Zofran) 4 mg IV Q8H PRN PRN PRN Reason: NAUSEA/VOMITING Last Admin: 03/27/20 00:19 Dose: 4 mg Documented by: Pantoprazole Sodium (Protonix) 40 mg PO BID [facility] Last Admin: 03/27/20 09:24 Dose: 40 mg Documented by: Pramipexole Dihydrochloride (Mirapex) 1.5 mg PO DINNER [facility] Last Admin: 03/27/20 17:41 Dose: 1.5 mg Documented by: Pramipexole Dihydrochloride (Mirapex) 1.5 mg PO QHS [facility] Last Admin: 03/26/20 22:05 Dose: 1.5 mg Documented by: Sodium Chloride () 10 - 40 ml IV UD PRN PRN Reason: SALINE FLUSH Last Admin: 03/27/20 10:18 Dose: 10 ml Documented by: STROKE Vital Signs/Narrative: Vital Signs Temp Pulse Resp BP Pulse Ox 03/27/20 15:15 98.3 F 74 18 126/89 H 95 Medical Necessity - Tobacco Use Smoking Status: Never smoker Assessment/Plan All Active Problems Cellulitis of left lower leg (Acute) Failure of outpatient treatment (Acute) Severe sepsis (Acute) Hyperglycemia due to type 2 diabetes mellitus (Acute) Sepsis (Acute) Ulcer of left lower extremity with fat layer exposed (Acute) Venous insufficiency (Acute) Cellulitis (Acute) History of DVT (deep vein thrombosis) (Resolved) 1. Severe sepsis secondary to left leg ulcer and cellulitis -Wound culture with Enterobacter, Proteus, Staphylococcus species -We will transition his Rocephin to Levaquin to cover both the Enterobacter and the Proteus which are highly susceptible -Appreciate podiatry input, no surgical intervention at this time -Obtain a chest x-ray in the morning to evaluate his oxygen requirement. He had a trial today and he went to 88% on room air. He does not have a diagnosis of heart failure 2. DM 2 uncontrolled/CKD 3 -A1c of 12.6, he is only on metformin at home was started on insulin here -We will continue to monitor and make dosing adjustments -We will resume metformin on discharge as well as insulin -Renal function has improved, can continue with Zaroxolyn as well as his Lasix 3. Chronic A. fib/HTN -He is on fondaparinux at home transition to Lovenox while here -Continue with metoprolol -Continuing with his Zaroxolyn and his Lasix 4. Hydrocele -We will follow-up with urologist in [place] on the , will likely not make it we will need to reschedule 5. GERD -Stable -Continue with PPI DVT: Lovenox Inpatient E&M: [id number] Subs Hosp L2
[2020-03-27] MEDS: MELATONIN 3 MG TABLET PO (21:09)
[2020-03-27] MEDS: hydrOXYzine PAM 25 MG Capsule 50 MG PO (21:09)
[2020-03-27 21:41] LABS: Bedside Glucose 280 mg/dL (70-110)
[2020-03-28] VITALS (11 sets, daily range): BP systolic 114–137; BP diastolic 62–76; PULSE 71–80; RESP 16–20; TEMP 36.3–36.8; O2SAT 89–95
[2020-03-28] MEDS: Insulin Lispro 100 UNIT/ML INSULN.PEN SC ×3 (03:06→11:17)
[2020-03-28] MEDS: Acetaminophen 325 MG Tablet 650 MG PO ×2 (03:07→08:46)
[2020-03-28] MEDS: levoFLOXacin 750 MG Tablet PO (03:08)
[2020-03-28 03:21] LABS: Bedside Glucose 212 mg/dL (70-110)
--- NOTE | 2020-03-28 05:55 | RAD_ITS ---
STUDY: X-RAY CHEST REASON FOR EXAM: Male, 69 years old. NEW O2 REQUIREMENT TECHNIQUE: PA and lateral views of the chest. COMPARISON: Comparison is made with prior study dated March 23, 2020. FINDINGS: EKG electrodes are seen. Since prior study, there is a progression of increased markings at the lung bases suggests bibasilar atelectasis. There is no demonstrated pleural abnormality. Normal size heart. Normal mediastinum and yadira. Normal visualized pulmonary arteries. There is atherosclerotic tortuosity of the aortic arch and descending thoracic aorta. There are diffuse degenerative changes of the visualized thoracic spine. There is degenerative osteoarthritis of the bilateral shoulders. There is no demonstrated abnormality of the visualized soft tissue structures of the upper abdomen. RAD/Chest PA and Lateral IMPRESSION: Increased markings at the lung bases suggest bibasilar atelectasis. Electronically Signed: Constantino Alegria, at 9:45 EDT , Service support ,
[2020-03-28 07:31] LABS: Bedside Glucose 205 mg/dL (70-110)
--- NOTE | 2020-03-28 07:37 | NURSING ---
pt to chest x ray
[2020-03-28] MEDS: Insulin Lispro 100 UNIT/ML INSULN.PEN 15 UNIT SC ×3 (08:39→17:18)
[2020-03-28] MEDS: Pantoprazole Sodium 40 MG Tablet PO (08:40)
[2020-03-28] MEDS: Metolazone 2.5 MG Tablet PO (08:40)
[2020-03-28] MEDS: Furosemide 40 MG Tablet PO (08:40)
[2020-03-28] MEDS: Enoxaparin 150 MG/ML Syringe SC (08:41)
[2020-03-28] MEDS: Metoprolol Tartrate 50 MG Tablet PO (08:41)
[2020-03-28] MEDS: Nystatin Ointment 1 APPLIC TOPICAL (08:42)
--- NOTE | 2020-03-28 09:53 | DCINST_ITS ---
- Discharge Diagnoses Current Active Problems: Current Active and Chronic Problems Cellulitis of left lower leg (Acute) Failure of outpatient treatment (Acute) Severe sepsis (Acute) Hyperglycemia due to type 2 diabetes mellitus (Acute) Sepsis (Acute) Ulcer of left lower extremity with fat layer exposed (Acute) Venous insufficiency (Acute) CRF (chronic renal failure) (Chronic) You will use the following diet at home:: Calorie/Carbohydrate Controlled (specify 1200, 1400, etc) - 1800 Your food should be the consistency of: Regular Your liquids should be the consistency of: Regular/Thin Discharge Activity: Return to Normal Activity Keep extremity elevated above heart level: Left Leg - Keep left foot elevated using pillows as much as possible. Call your doctor if your incision/area has: Continuous Slow Oozing, Sudden Increased Bleeding, Foul Smelling Discharge Call your doctor if you observe: Fever of 101 or Higher, Shortness of breath, Dizziness, Fainting spells, Swelling in the ankles, Chest pain, Increased palpitations (irregular heartbeat) Cleanse incision/area with: - - Wound care left leg: Cleanse w/ saline solution. Apply adaptic and overlying gauze, kerlix and brad dressing - brad dressing goes from base of the toes to just below the knee - change daily. Allergies/Adverse Reactions: Allergies No Known Allergies Allergy (Verified 03/23/20 18:26) Medications to take at Discharge Fondaparinux Sodium [Arixtra] 10 mg SQ DAILY 12/21/14 Furosemide [Lasix] 40 mg PO DAILY 12/21/14 HydrOXYzine [Atarax] 50 mg PO QHS 12/21/14 Metoprolol Tartrate [Lopressor (beta enmanuel)] 50 mg PO BID 12/21/14 Pantoprazole Sodium [Protonix] 40 mg PO BID 12/21/14 Metformin HCl 500 mg PO DAILY 09/27/18 Nystatin 1 applic TP DAILY 09/27/18 Ropinirole HCl [Requip] 9 mg PO DAILY 09/27/18 Metolazone 2.5 mg PO DAILY 03/24/20 Mupirocin 03/24/20 Insulin Glargine [Lantus SoloStar Pen] 30 units SUBCUT BID #1 pen 03/28/20 Insulin Lispro [Humalog KwikPen] 15 unit SUBCUT TIDAC #1 insuln.pen 03/28/20 levoFLOXacin tablet [Levaquin tablet] 750 mg PO DAILY@0600 #10 tab 03/28/20 The following prescriptions were given: Insulin Lispro [Humalog KwikPen] 15 unit SUBCUT TIDAC #1 insuln.pen Transmission Status: Pending to [facility] Insulin Glargine [Lantus SoloStar Pen] 30 units SUBCUT BID #1 pen Transmission Status: Pending to [facility] levoFLOXacin tablet [Levaquin tablet] 750 mg PO DAILY@0600 #10 tab Transmission Status: Pending to [facility] Orders to be completed after discharge: Glucometer Location: None Selected Novofine Autocover 30G Needle Location: None Selected Primary Care Physician: Dereck Willis MD [Primary Care Provider] - Please follow up with your Primary Care Physician in: 3-5 days Test Results: Test results from this visit will be discussed in further detail at your follow- up appointment, if applicable. Please Follow Up With: Tomeka Stone DPM When: 1 week, sooner if needed. Please Follow Up With: Ricardo Ríos MD When: 2-4 weeks
--- NOTE | 2020-03-28 10:58 | DS.PCM_ITS ---
Discharge Date and Diagnosis - Problem List Patient Problems: Active and Suspected Problems Cellulitis of left lower leg (Acute) Failure of outpatient treatment (Acute) Severe sepsis (Acute) Hyperglycemia due to type 2 diabetes mellitus (Acute) Sepsis (Acute) Ulcer of left lower extremity with fat layer exposed (Acute) Venous insufficiency (Acute) Date of Admission: 03/23/20 Date of Discharge: 03/28/20 - Primary Discharge Diagnosis Acute Problems: Active Problems Cellulitis of left lower leg (Acute) Failure of outpatient treatment (Acute) Severe sepsis (Acute) Hyperglycemia due to type 2 diabetes mellitus (Acute) Sepsis (Acute) Ulcer of left lower extremity with fat layer exposed (Acute) Venous insufficiency (Acute) - Secondary Discharge Diagnosis Chronic Problems: Chronic Problems Hyperthyroidism (Chronic) recently diagnosed Obesity (BMI 30-39.9) (Chronic) GERD (gastroesophageal reflux disease) (Chronic) History of Dotson's esophagus (Chronic) Atrial fibrillation (Chronic) Clotting disorder (Chronic) on Arixstra....had DVT while on Coumadin Left leg swelling (Chronic) CRF (chronic renal failure) (Chronic) Venous hypertension of both lower extremities (Chronic) LEDA (obstructive sleep apnea) (Chronic) non-compliant with CPAP Hospital Course and Treatment Imaging Results: CXR: IMPRESSION: No acute thoracic pathology. L Tib/Fib XR: IMPRESSION: Status post left knee arthroplasty. No fracture or dislocation in the left tibia or fibula. Soft tissue swelling. SASHA: Interpretation Summary 1. Elevated SASHA at 1.38 and 1.60. There remains bilateral triphasic flow throughout. DBI 0.62 and 0.71. DC CXR: IMPRESSION: Increased markings at the lung bases suggest bibasilar atelectasis.IMPRESSION: Increased markings at the lung bases suggest bibasilar atelectasis. 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 Patient had a prescription for antibiotic which he started late due to affordability. Patient has been coughing for about one week. His cough has actually improved. Previously his cough was productive for copious sputum. However the sputum amount has decreased. He reports the sputum as green. He reports some shortne ss of breath. Patient reported that in the same week of presentation he went to [facility]. He reported an ultrasound was done and ultrasound showed blood on the top of his penis and blood in his urine. He is scheduled to see a urologist Dr. Armando with the [facility] system. Reportedly his appointment is on 03/26/2020 at 10:30 AM. Also the patient reported that recent blood work showed that his blood glucose was 736. He follows up at the [facility] and report that he is borderline diabetic on metformin. At emergency department his blood glucose on BMP was 560. His lactic acid was 2.9. Hospital Course: 1. Severe sepsis secondary to left leg ulcer and [id number]-old male with a history of venous stasis and A. fib and with increasing drainage from his left calf. He has a diabetic ulcer wound care as well as podiatry were consulted for evaluation. No immediate surgical intervention was performed and he was started on Rocephin. His wound culture ended up growing Enterobacter and Proteus as well as staphylococcal species. The Enterobacter and Proteus were highly susceptible to Levaquin therefore he was transitioned from Rocephin to Levaquin and will complete his antibiotic course on Levaquin. When he initially presented to the hospital he had on oxygen saturation of 88% on room air and he was placed on heart failure and does appear that this is likely related to atelectasis. He had a breathing trial yesterday and he desaturated to 88% on room air however retesting on the day of discharge demonstrated he did not need oxygen. It is likely that this is secondary to atelectasis. He will need to follow-up with wound care as well as his primary care physician in about 1 to 2 weeks. He can follow-up with the wound care center if necessary. I did discuss with him the plan for discharge today and he expressed understanding of the risks and benefits, and would like to go home today with home health. 2. Uncontrolled DM 2/CKD 3-when he presented to the hospital a C1 was obtained 12.6. He is only on metformin at home and so he was started on insulin. Despite being on an 1800-calorie diet he needed insulin to be increased to 30 units of Lantus twice daily as well as 15 units with meals. I do plan on him continuing his metformin at home as well provided him with a glucometer his blood sugar twice a day. I also would request that he follow-up with an funding analyst as an outpatient to him in managing his uncontrolled diabetes at this time. His kidney function is at baseline and therefore he can continue with his Zaroxolyn and his Lasix. 3. His other medical diagnoses were evaluated and his home medications were continued where appropriate Patient Problems: Active and Suspected Problems Cellulitis of left lower leg (Acute) Failure of outpatient treatment (Acute) Severe sepsis (Acute) Hyperglycemia due to type 2 diabetes mellitus (Acute) Sepsis (Acute) Ulcer of left lower extremity with fat layer exposed (Acute) Venous insufficiency (Acute) - Physical Exam Vitals/I&O's: Vital Signs Temp Pulse Resp BP Pulse Ox 98.2 F 72 20 H 122/62 H 95 03/28/20 07:31 03/28/20 08:41 03/28/20 07:31 03/28/20 07:31 03/28/20 07:31 Oxygen Flow Rate (L/min) [At 0 REST on Room Air] Oxygen Flow Rate (L/min) 2 Oxygen Delivery Method Nasal Cannula Weight: 337 lb 11.971 oz Body Mass Index (BMI) 49.8 Intake and Output for Last 24 Hours 03/26/20 03/27/20 03/28/20 23:59 23:59 23:59 Intake Total 1500 / 1500 1010 / 1110 150 / 150 Output Total 975 / 975 1575 / 1875 300 / 300 Balance 525 / 525 -565 / -765 -150 / -150 General: Alert, Oriented x3, Cooperative, No apparent distress HEENT: Atraumatic, PERRLA, EOMI, Normocephalic Oral: Moist Mucosa Neck: Supple, No JVD Lungs: Clear to auscultation, Normal air movement, No rhonchi, No wheeze, No rales Cardiovascular: Regular rate, Regular Rhythm, Normal S1, Normal S2, No murmurs Abdomen: Soft, Non Tender, Non-Distended, No Hepato-splenomegaly Extremities: No edema, Capillary Refill Less than 3 Seconds Skin: Ulcer/ Wound - 3 to 5 cm wound in the posterior lateral side of his left lower extremity appears to be the source Neurological: Neuro grossly intact, Sensory exam intact to light touch and pain Psych/Mental Status: Normal Affect, Appropriate Microbiology Past 72 Hours 03/24/20 11:00 Wound Drainage - Aerobic & Anaerobic Swabs Gram Stain - Final 03/24/20 11:00 Wound Drainage - Aerobic & Anaerobic Swabs Wound Culture - Final Enterobacter cloacae complex Proteus mirabilis Staphylococcus haemolyticus 03/24/20 11:00 Wound Drainage - Aerobic & Anaerobic Swabs Anaerobic Culture - Final 03/23/20 18:45 Blood Culture (Wb) #2 - Anticubital Left Blood Culture - Preliminary No growth in 48 hours. 03/23/20 18:50 Blood Culture (Wb) - Right Forearm Blood Culture - Preliminary No growth in 48 hours. Laboratory Results 03/27/20 11:08: POC Glucose 335 H 03/27/20 16:46: POC Glucose 332 H 03/27/20 21:06: POC Glucose 280 H 03/28/20 02:58: POC Glucose 212 H 03/28/20 07:25: POC Glucose 205 H Current Medications Acetaminophen (Tylenol) 650 mg PO Q6H PRN PRN PRN Reason: Pain Score 1-10/Temp > 100.7 F Last Admin: 03/28/20 08:46 Dose: 650 mg Documented by: Dextrose (D50w Syringe) 0 gm IV X1 PRN; Protocol PRN Reason: Hypoglycemia Enoxaparin Sodium (Lovenox) 150 mg SC Q12 [facility] Last Admin: 03/28/20 08:41 Dose: 150 mg Documented by: Furosemide (Lasix) 40 mg PO DAILY [facility] Last Admin: 03/28/20 08:40 Dose: 40 mg Documented by: Glucagon () 1 mg IM .X1 PRN PRN Reason: Hypoglycemia Hydroxyzine Pamoate (Vistaril Pamoate Capsule) 50 mg PO QHS [facility] Last Admin: 03/27/20 21:09 Dose: 50 mg Documented by: Sodium Chloride () 250 mls @ 15 mls/hr IV .[id number] PRN PRN Reason: Saline Flush Last Infusion: 03/24/20 06:07 Dose: 0 mls/hr Documented by: Sodium Chloride () 250 mls @ 15 mls/hr IV .[id number] PRN PRN Reason: Additional IVPB Infusion Insulin Glargine (Lantus (Bkc)) 30 units SC BREAKFAST [facility] Last Admin: 03/28/20 08:39 Dose: 30 units Documented by: Insulin Glargine (Lantus (Bk)) 30 units SC QHS [facility] Last Admin: 03/27/20 21:11 Dose: 30 u Documented by: Insulin Human Lispro (Humalog Kwikpen (Bk)) 0 unit SC ACHS & 3AM [facility]; Protocol Last Admin: 03/28/20 08:39 Dose: 4 units Documented by: Insulin Human Lispro (Humalog Kwikpen ([facility])) 15 unit SC TIDAC [facility] Last Admin: 03/28/20 08:39 Dose: 15 units Documented by: Levofloxacin (Levaquin Tablet) 750 mg PO DAILY@0600 [facility] Last Admin: 03/28/20 03:08 Dose: 750 mg Documented by: Melatonin (Melatonin) 3 mg PO QHS PRN PRN PRN Reason: INSOMNIA Last Admin: 03/27/20 21:09 Dose: 3 mg Documented by: Metolazone (Zaroxolyn) 2.5 mg PO DAILY [facility] Last Admin: 03/28/20 08:40 Dose: 2.5 mg Documented by: Metoprolol Tartrate (Lopressor (Beta Verónica)) 50 mg PO BID [facility] Last Admin: 03/28/20 08:41 Dose: 50 mg Documented by: Nutritional Formula ([place] - [place] Flavor) [facility] Last Admin: 03/28/20 08:41 Dose: 1 packet Documented by: Nystatin (Mycostatin) 1 applic TOPICAL BID [facility]; Protocol Last Admin: 03/28/20 08:42 Dose: 1 applicatio Documented by: Ondansetron HCl (Zofran) 4 mg IV Q8H PRN PRN PRN Reason: NAUSEA/VOMITING Last Admin: 03/27/20 19:54 Dose: 4 mg Documented by: Pantoprazole Sodium (Protonix) 40 mg PO BID [facility] Last Admin: 03/28/20 08:40 Dose: 40 mg Documented by: Pramipexole Dihydrochloride (Mirapex) 1.5 mg PO DINNER [facility] Last Admin: 03/27/20 17:41 Dose: 1.5 mg Documented by: Pramipexole Dihydrochloride (Mirapex) 1.5 mg PO QHS [facility] Last Admin: 03/27/20 21:10 Dose: 1.5 mg Documented by: Sodium Chloride () 10 - 40 ml IV UD PRN PRN Reason: SALINE FLUSH Last Admin: 03/27/20 19:54 Dose: 10 ml Documented by: Discharge Activity: Return to Normal Activity Keep extremity elevated above heart level: Left Leg - Keep left foot elevated using pillows as much as possible. Call your doctor if your incision/area has: Continuous Slow Oozing, Sudden Increased Bleeding, Foul Smelling Discharge Call your doctor if you observe: Fever of 101 or Higher, Shortness of breath, Dizziness, Fainting spells, Swelling in the ankles, Chest pain, Increased palpitations (irregular heartbeat) Cleanse incision/area with: - - Wound care left leg: Cleanse w/ saline solution. Apply adaptic and overlying gauze, kerlix and brad dressing - brad dressing goes from base of the toes to just below the knee - change daily. Home Medications: Medications to take at Discharge Fondaparinux Sodium [Arixtra] 10 mg SQ DAILY 12/21/14 Furosemide [Lasix] 40 mg PO DAILY 12/21/14 HydrOXYzine [Atarax] 50 mg PO QHS 12/21/14 Metoprolol Tartrate [Lopressor (beta verónica)] 50 mg PO BID 12/21/14 Pantoprazole Sodium [Protonix] 40 mg PO BID 12/21/14 Metformin HCl 500 mg PO DAILY 09/27/18 Nystatin 1 applic TP DAILY 09/27/18 Ropinirole HCl [Requip] 9 mg PO DAILY 09/27/18 Metolazone 2.5 mg PO DAILY 03/24/20 Mupirocin 03/24/20 Insulin Glargine [Lantus SoloStar Pen] 30 units SUBCUT BID #1 pen 03/28/20 Insulin Lispro [Humalog KwikPen] 15 unit SUBCUT TIDAC #1 insuln.pen 03/28/20 levoFLOXacin tablet [Levaquin tablet] 750 mg PO DAILY@0600 #10 tab 03/28/20 Following Prescrptions Were Given to Patient: Insulin Lispro [Humalog KwikPen] 15 unit SUBCUT TIDAC #1 insuln.pen Transmission Status: Received by [facility] Insulin Glargine [Lantus SoloStar Pen] 30 units SUBCUT BID #1 pen Transmission Status: Received by [facility] levoFLOXacin tablet [Levaquin tablet] 750 mg PO DAILY@0600 #10 tab Transmission Status: Received by [facility] Other Amb Orders: Glucometer Location: None Selected Novofine Autocover 30G Needle Location: None Selected Primary Care Physician: Dereck iWllis MD [Primary Care Provider] - Please follow up with your Primary Care Physician in: 3-5 days Please Follow Up With: Tomeka Stone DPM When: 1 week, sooner if needed. Please Follow Up With: Ricardo Ríos MD When: 2-4 weeks Please Follow Up With: Dereck Willis MD Disposition: Home Minutes spent on discharge:: 35 Patient Condition:: Stable Medical Necessity - Tobacco Use Smoking Status: Never smoker Meaningful Use Info Meaningful Use Diagnoses (Choose all that apply): None applicable Inpatient E&M: 07394 Disch Hosp
[2020-03-28] MEDS: Ondansetron 4 MG/2 ML Vial IV (11:26)
[2020-03-28] MEDS: 0.9% Saline Lock 10 ML Syringe IV (11:26)
--- NOTE | 2020-03-28 11:31 | NURSING ---
pt declined calling family
--- NOTE | 2020-03-28 11:46 | CASEMGMT ---
Addendum entered by Malorie Uribe 03/28/20 15:46: [facility] states that they finally received referral and that they will let this RN CM know michelle whether they can take pt or not. Hanane RN CM Addendum entered by Malorie Uribe 03/28/20 14:50: This RN CM also received call from Laura, nurse at [facility], and she is updated that pt would like to have aides in home, voices understanding and states she will pass on to . Laura is also aware that pt to be discharged today and she states she will call him in the next day or two to set up f/u appt. Hanane RN CM Addendum entered by Malorie Uribe 03/28/20 14:48: Call to [facility] to check on status of referral and per [facility], they did not receive referral yet at this time despite this RN CM getting fax confirmation. Per [facility], this RN CM to fax to a different number: [phone]. Referral re-faxed at this time. Hanane RN CM Addendum entered by Malorie Uribe 03/28/20 12:04: [facility] cannot take pt at this time, so call to [facility] to see if they staff pt's area and they ask for referral to be faxed and then they will call this RN CM back. Hanane RN MATA Original Note: Pt does not qualify for home oxygen at this time. Pt is interested in HHC SN, PT/OTat this time and states no preference for HHC at this time. Call to [facility] to see if they are able to take pt at this time and awaiting call back. Pt states is also interested in getting aides set up through the [facility], so message left for pt's nurse at the [facility] in [place] to call this RN CM back when able. Pt states no further questions/concerns/needs at this time. Hanane LOPEZ CM
[2020-03-28 11:55] LABS: Bedside Glucose 262 mg/dL (70-110)
--- NOTE | 2020-03-28 13:57 | NURSING ---
educated pt on diabeties, , glucometer testing, and insulin injections. pt gave insulin injection to self
[2020-03-28 16:20] LABS: Bedside Glucose 243 mg/dL (70-110)
[2020-03-28] MEDS: Pramipexole Di-HCl 0.5 MG Tablet 1.5 MG PO (17:20)
--- NOTE | 2020-03-29 15:39 | CASEMGMT ---
JOHN AUGUST Discharge Follow-Up Phone Call. Stefanie: 12 Strata: 3 Discharge Date: 03/29/20 Adm Dx: Severe sepsis Call to pt to inquire about how he has been doing since being discharged from the hospital. Pt states he is doing okay. He states the [facility] nurse came to his house today and will be returning this weekend again. He states he was able to pick up driver the prescriptions for insulin yesterday, but that [facility] pharmacy did not have the Levaquin available until today and that he is going back this evening to pick that up. He states the prescriptions were originally sent to [facility] pharmacy but that d/t a big chakraborty difference he had them transferred to [facility]. He states he is also planning on getting a glucumeter this evening as well and that [facility] nurse will be assisting him further with the insulin and blood sugar testing. He states he has not heard from Dr Ríos or Dr Willis yet for appts. JOHN AUGUST advised him to contact their offices next week to schedule appts with them if he does not hear from them. He is aware of the appt scheduled w/Dr Stone but that there is a conflict with his schedule and he called them today to reschedule that appt as well and is waiting to hear back from them. He denies having any questions/concerns re: discharge instructions and denies needs. He gave compliments for good nursing care while @ [facility] and asked for this to be passed along to them. JOHN AUGUST thanked pt for choosing [facility]. Matheus CHINO RN, CM
== END 2020-03-28 18:12 | disposition home health service (06) | DRG 854 ==
LOC: ED 23:00 → PCU 03-24 00:36
PROVIDERS: Internal Medicine; Podiatrist; Admitting Provider Hospitalist; Emergency Provider Emergency Medicine; PCP Family Medicine; Visit Provider Family Medicine
DX: A41.9 Sepsis, unspecified organism (principal); I87.312 Chronic venous hypertension (idiopathic) with ulcer of left lower extremity; L97.822 Non-pressure chronic ulcer of other part of left lower leg with fat layer exposed; I48.20 Chronic atrial fibrillation, unspecified; Z68.42 Body mass index [BMI] 45.0-49.9, adult; L03.116 Cellulitis of left lower limb; D68.9 Coagulation defect, unspecified; J98.11 Atelectasis; E87.2 Acidosis; B96.89 Other specified bacterial agents as the cause of diseases classified elsewhere; B96.4 Proteus (mirabilis) (morganii) as the cause of diseases classified elsewhere; B95.8 Unspecified staphylococcus as the cause of diseases classified elsewhere; E11.65 Type 2 diabetes mellitus with hyperglycemia; E11.22 Type 2 diabetes mellitus with diabetic chronic kidney disease; N18.3 Chronic kidney disease, stage 3 (moderate); I87.2 Venous insufficiency (chronic) (peripheral); E11.51 Type 2 diabetes mellitus with diabetic peripheral angiopathy without gangrene; R65.20 Severe sepsis without septic shock; E05.90 Thyrotoxicosis, unspecified without thyrotoxic crisis or storm; G47.33 Obstructive sleep apnea (adult) (pediatric); K21.9 Gastro-esophageal reflux disease without esophagitis; E66.01 Morbid (severe) obesity due to excess calories; Z79.02 Long term (current) use of antithrombotics/antiplatelets; Z79.4 Long term (current) use of insulin; Z79.899 Other long term (current) drug therapy; Z91.19 Patient's noncompliance with other medical treatment and regimen; Z86.718 Personal history of other venous thrombosis and embolism; Z96.653 Presence of artificial knee joint, bilateral
CPT/HCPCS: 36415; 71045; 71046; 73590; 80048; 80053; 82962; 83036; 83605; 83690; 83735; 84484; 85025; 87040; 87070; 87075; 87077; 87186; 87205; 87635; 87640; 93005; 93923; 94660; 97161; 97166; 97530; 97802; 99285; G2023; J7040; J7050; A4216; J2405; U0004